=== PATIENT | female | born 1990 | race Caucasian/White ===

== ENCOUNTER → 2021-11-11 08:27 | Outpatient (BNVA) | payer OTHER, SELFPAY | PROVIDERS: PCP Family Medicine; Visit Provider Nurse Practitioner Family | DX: Z79.899 Other long term (current) drug therapy (principal) ==

== ENCOUNTER 2022-06-10 12:59 | Outpatient (REF) | payer OTHER, SELFPAY ==
--- NOTE | 2022-06-10 08:00 | EMG_ITS ---
This study was performed on 2 different machines due to technical reasons, and the data is in 2 different reports. For this oral report, both set of data were reviewed. Bilateral tibial and peroneal motor studies were performed. Bilateral superficial peroneal and sural sensory studies were performed. Medial and lateral plantar sensory studies were performed. Tibial H reflexes were obtained. A needle examination was performed. IMPRESSION: 1. 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 2. 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 MD MACEY Navarro/ADRIAN / [id number]
== END 2022-06-10 13:00 | disposition home or self-care (01) ==
LOC: HO.NEURO 12:59
PROVIDERS: PCP Internal Medicine; Visit Provider Nurse Practitioner Family
DX: M21.372 Foot drop, left foot (principal); R29.898 Other symptoms and signs involving the musculoskeletal system; M54.50 Low back pain, unspecified
CPT/HCPCS: 95886; 95913

== ENCOUNTER → 2022-10-07 14:21 | Outpatient (BNVA) | payer OTHER, SELFPAY | PROVIDERS: PCP Internal Medicine; Visit Provider Nurse Practitioner Family | DX: G57.51 Tarsal tunnel syndrome, right lower limb (principal); R26.9 Unspecified abnormalities of gait and mobility; M21.372 Foot drop, left foot ==

== ENCOUNTER → 2023-01-05 07:52 | Outpatient (BNVA) | payer OTHER, SELFPAY | PROVIDERS: PCP Internal Medicine; Visit Provider Nurse Practitioner Family | DX: G57.51 Tarsal tunnel syndrome, right lower limb (principal); R26.9 Unspecified abnormalities of gait and mobility; M21.372 Foot drop, left foot; R29.898 Other symptoms and signs involving the musculoskeletal system; R56.9 Unspecified convulsions; G62.9 Polyneuropathy, unspecified ==

== ENCOUNTER 2023-05-10 10:11 | Outpatient (AMB) | payer OTHER, SELFPAY ==
--- NOTE | 2023-05-10 10:13 | A.OFFVIS_ITS ---
Intake Intake Visit Reasons: 4M follow up gait difficulty-Confirmed Allergies topiramate [From Topamax] Allergy (Severe, Verified 01/05/23 08:04) seizure changes Medication List - Last Reconciled 05/10/23 by SLOANE Maher baclofen 10 - 20 mg (1 - 2 x 10 mg) PO BEDTIME PRN 14 days cetirizine (Zyrtec) 10 mg PO BEDTIME folic acid PO DAILY [Left AFO As directed. [facility] [address] [place] [id number] ] multivitamin 1 tab PO DAILY oxcarbazepine (Trileptal) 900 mg PO BID prednisone 60 mg (3 x 20 mg) PO DAILY 5 days trazodone 25 mg PO BEDTIME vortioxetine (Trintellix) 10 mg PO DAILY HPI HPI Comments History of Present Illness Details 33-yr-old female presents for f/u televi brittany visit via [facility] Pt denies any significant interval medical changes. Pt reports she had [facility] f/u. They advised her to do PT, which she did. Per pt, they felt that the right ankle was strong enough at this time, but if she has any further issues/injury, she will likely need surgery. She is having some pins and needles in the legs. Continues to need to wear her AFO, otherwise may trip while walking. Is considering resuming yoga. Lab work-up was essentially normal- with exception of abnormal RF, which we plan to recheck. Has not done f/u labs yet- was not sure when to do them. Last seizure was > 2 yrs ago. PFSH Medical History (Updated 05/10/23 @ 10:23 by SLOANE Maher) IIH (idiopathic intracranial hypertension) Surgical History (Updated 01/27/23 @ 13:27 by SLOANE Maher) H/O lithotripsy History of lumbar discectomy Family History (Updated 01/05/23 @ 08:08 by Leticia Snider CMA) Father Ventricular fibrillation Paternal Grandmother Squamous cell cancer of skin of nose Social History Alcohol intake: never Patient Tobacco Use Status: Never used Tobacco Review of Systems Const All systems reviewed & are unremarkable except as noted in HPI and below Physical Exam Const General: cooperative and no acute distress Orientation/consciousness: patient oriented x3 Resp Effort & Inspection: normal respiratory effort and able to speak in complete sentences Neuro General: patient oriented x3 Cognition (Neuro): normal cognition Psych Appearance: grossly normal Mental Status: mental status grossly normal Speech and movement: Normal speech and movement present Affect: normal affect Attitude: cooperative Assessment & Plan Assessment & Plan (1) Tarsal tunnel syndrome, right lower limb: Code(s): G57.51 - Tarsal tunnel syndrome, right lower limb (2) Left foot drop: Comment: s/p left L5-S1 large disc herniation in 2017. Code(s): M21.372 - Foot drop, left foot (3) Low back pain: Code(s): M54.50 - Low back pain, unspecified Plan Will recheck CHELSEA and RF- will fax labs to [facility] Continue w/ BLE AFOs. Continue PT exercises Suggested resuming Yoga, trying medium density foam rolling. ?f/u in 4months or sooner prn. Orders: Orders CHELSEA Reflex Titer and Pattern Today G62.9 - Polyneuropathy, unspecified, R76.8 - Other specified abnormal immunological findings in serum Rheumatoid Factor Today G62.9 - Polyneuropathy, unspecified, R76.8 - Other specified abnormal immunological findings in serum Telehealth Telehealth Location of provider rendering services: practice address Location of patient: address on file Patient Identification confirmed using: Name, : Yes Telehealth method: video Patient verbally consented to treatment: Yes Patient verbally consented to billing insurance company: Yes Patient informed of any privacy concerns related to visit: Yes Minutes spent on Phone/Video with Pt.: 11 Coding Level of Care Code Tele Est Pt Level 3 (29283) Diagnoses Tarsal tunnel syndrome, right lower limb G57.51 Left foot drop M21.372 Low back pain M54.50
== END 2023-05-10 12:17 | disposition home or self-care (01) ==
LOC: HO.HSMS 10:11
PROVIDERS: PCP Internal Medicine; Visit Provider Nurse Practitioner Family
DX: G57.51 Tarsal tunnel syndrome, right lower limb (principal); M21.372 Foot drop, left foot; M54.50 Low back pain, unspecified
CPT/HCPCS: 99213

== ENCOUNTER → 2023-05-10 10:11 | Outpatient (BNVA) | payer OTHER, SELFPAY | PROVIDERS: PCP Internal Medicine; Visit Provider Nurse Practitioner Family | DX: G57.51 Tarsal tunnel syndrome, right lower limb (principal); R26.9 Unspecified abnormalities of gait and mobility; M21.372 Foot drop, left foot; R29.898 Other symptoms and signs involving the musculoskeletal system; R56.9 Unspecified convulsions; G62.9 Polyneuropathy, unspecified ==

== ENCOUNTER 2023-09-14 15:12 | Outpatient (AMB) | payer OTHER, SELFPAY ==
--- NOTE | 2023-09-14 15:44 | MHC.OFFVIS ---
Intake Vital Signs 09/14/23 15:48 Height 5 ft 7 in Weight 188 lb 4 oz BMI 29.5 BP 130/80 Blood Pressure Location Lt brachial Position Sitting Pulse 90 Pulse Source Pulse Oximeter Pulse Oximetry (%) 98 Oxygen Delivery Method Room Air Intake Visit Reasons: follow up-CONF Intake Note: Patient presents for f/u Allergies topiramate [From Topamax] Allergy (Severe, Verified 09/14/23 15:46) seizure changes Medication List - Last Reconciled 09/14/23 by SLOANE Maher aspirin 162 mg PO DAILY baclofen 10 - 20 mg (1 - 2 x 10 mg) PO BEDTIME PRN 14 days cetirizine (Zyrtec) 10 mg PO BEDTIME folic acid Pt. takes 1mg x4 a day. [Left AFO As directed. [facility] [address] [place] [id number] ] multivitamin 1 tab PO DAILY oxcarbazepine (Trileptal) 900 mg PO BID prednisone 60 mg (3 x 20 mg) PO DAILY 5 days trazodone 25 mg PO BEDTIME vortioxetine (Trintellix) 10 mg PO DAILY HPI HPI Comments History of Present Illness Details 33-yr-old female presents for f/u visit. Pt reports she has had significant nausea, vomiting and weight loss with her . 06/07/23, RF- < 10 NL. She has not been using her BLE AFOs as much. Her RLE is stronger. She continues to have LLE foot drop No falls. But may catch her foot on the floor at times. No interval seizures. [facility] Medical History (Updated 05/10/23 @ 10:23 by SLOANE Maher) IIH (idiopathic intracranial hypertension) Surgical History H/O lithotripsy History of lumbar discectomy Family History Father Ventricular fibrillation Paternal Grandmother Squamous cell cancer of skin of nose Social History Alcohol intake: never Patient Tobacco Use Status: Never used Tobacco Review of Systems Const All systems reviewed & are unremarkable except as noted in HPI and below Physical Exam Vital Signs: Last Vital Signs Pulse 90 09/14/23 15:48 BP 130/80 09/14/23 15:48 Pulse Ox 98 09/14/23 15:48 Oxygen Delivery Method Room Air 09/14/23 15:48 BMI result Body Mass Index 29.5 Const General: cooperative and no acute distress Orientation/consciousness: patient oriented x3 HEENT Head: Yes normocephalic Resp Effort & Inspection: normal respiratory effort and able to speak in complete sentences Neuro Other: RLE MS 5/5 LLE hip flexor MS 5/5 Left footextensor MS 5-/5 Gait- Very mild LLE high step General: patient oriented x3 and CN's II-XI intact bilaterally Cognition (Neuro): normal cognition Deep tendon reflexes (DTR's): Right patellar reflex intensity grade: 2+ and Left patellar reflex intensity grade: 2+ Psych Appearance: grossly normal Mental Status: mental status grossly normal Speech and movement: Normal speech and movement present Affect: normal affect Attitude: cooperative Thought process: Normal thought process present Assessment & Plan Assessment & Plan (1) Tarsal tunnel syndrome, right lower limb: Code(s): G57.51 - Tarsal tunnel syndrome, right lower limb (2) Left foot drop: Comment: s/p left L5-S1 large disc herniation in 2017. Code(s): M21.372 - Foot drop, left foot (3) Gait difficulty: Code(s): R26.9 - Unspecified abnormalities of gait and mobility Plan Try to use BLE AFOs more consistently. Continue PT exercises Will recheck CHELSEA and RF after delivery. Continue on Trileptal for seizure prevntion. f/u in 4-5 months or sooner prn. Coding Level of Care Code Est Pt Level 3 (75871) Diagnoses Tarsal tunnel syndrome, right lower limb G57.51 Left foot drop M21.372 Gait difficulty R26.9
[2023-09-14 15:48] VITALS: BP 130/80; PULSE 90; O2SAT 98; BMI 29.5
== END 2023-09-14 16:00 | disposition home or self-care (01) ==
PROVIDERS: PCP Internal Medicine; Visit Provider Nurse Practitioner Family
DX: G57.51 Tarsal tunnel syndrome, right lower limb (principal); M21.372 Foot drop, left foot; R26.9 Unspecified abnormalities of gait and mobility
CPT/HCPCS: 99213

== ENCOUNTER → 2023-09-14 15:12 | Outpatient (BNVA) | payer OTHER, SELFPAY | PROVIDERS: PCP Internal Medicine; Visit Provider Nurse Practitioner Family ==

== ENCOUNTER 2024-02-08 10:49 | Outpatient (AMB) | payer OTHER, SELFPAY ==
--- NOTE | 2024-02-08 11:10 | MHC.OFFVIS ---
Vital Signs 02/08/24 11:10 Height 5 ft 7 in Intake Visit Reasons: January f/u per [facility]-conf Intake Note: Patient presents for follow up. patient has been having lower back pain impacting mobility taking tylenol with some relief. Allergies topiramate [From Topamax] Allergy (Severe, Verified 02/08/24 11:14) seizure changes Medication List - Last Reconciled 02/08/24 by SLOANE Maher aspirin 162 mg PO DAILY baclofen 10 - 20 mg (1 - 2 x 10 mg) PO BEDTIME PRN 14 days cetirizine (Zyrtec) 10 mg PO BEDTIME folic acid Pt. takes 1mg x4 a day. [Left AFO As directed. [facility] [address] [place] [id number] ] multivitamin 1 tab PO DAILY oxcarbazepine (Trileptal) 900 mg PO BID prednisone 60 mg (3 x 20 mg) PO DAILY 5 days trazodone 25 mg PO BEDTIME vortioxetine (Trintellix) 10 mg PO DAILY HPI Comments Details: 34-yr-old female presents for f/u visit. Pt is 4 weeks . Pt reports the vaginal delivery, which required Pitocin as there was ? partial placenta abruption as her amniotic fluid was bloody. Did have abdominal strain during the labor. She has stopped ASA, iron, folic acid. Walking has been ok. Some tripping- more so at the end of her . Had a fall at work- slipped on wet floor. No other falls. She has had some low back pain that made her movement a bit worse. She thinks that this might be triggered by her position while she is pumping. 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 She has not had any interval seizure. last seizure was in Mar 2021. Has f/u epilepsy clinic appt in [place] coming up. [facility] Medical History (Updated 02/08/24 @ 12:03 by SLOANE Maher) Anemia IIH (idiopathic intracranial hypertension) Surgical History H/O lithotripsy History of lumbar discectomy Family History Father Ventricular fibrillation Paternal Grandmother Squamous cell cancer of skin of nose Social History Alcohol intake: never Patient Tobacco Use Status: Never used Tobacco Physical Exam Const General: cooperative and no acute distress Orientation/consciousness: patient oriented x3 Resp Effort & Inspection: normal respiratory effort and able to speak in complete sentences Neuro Other: LLE decreased sensation- baseline BLE hip flexor and foot flexor- 5/5 Gait better today- still left leg high step. General: patient oriented x3 Cranial nerves: Yes CN's II-XII intact bilaterally Cognition (Neuro): normal cognition Psych Appearance: grossly normal Mental Status: mental status grossly normal Speech and movement: Normal speech and movement present Affect: normal affect Attitude: cooperative Assessment & Plan Assessment & Plan (1) Left foot drop: Comment: s/p left L5-S1 large disc herniation in 2017. Code(s): M21.372 - Foot drop, left foot Category: Medical (2) Rheumatoid factor positive: Code(s): R76.8 - Other specified abnormal immunological findings in serum Category: Medical (3) History of lumbar discectomy: Comment: Left L5-S1 by Dr Lemon (2017) Code(s): Z98.890 - Other specified postprocedural states Category: Surgical (4) Gait difficulty: Code(s): R26.9 - Unspecified abnormalities of gait and mobility Category: Medical (5) Seizure: Comment: both epileptic and non-epileptic. Code(s): R56.9 - Unspecified convulsions Category: Medical Plan Recheck CHELSEA, RF, Recheck CBC, CMP, and iron studies. RLE MS improved. Wear LLE AFO- as needed. Continue PT exercises Continue on Trileptal for seizure prevention. ? f/u in 4-5 months or sooner prn. Orders: Orders Complete Blood Count Auto Diff Today D64.9 - Anemia, unspecified, R76.8 - Other specified abnormal immunological findings in serum IRON PROFILE Today D64.9 - Anemia, unspecified Comprehensive Met. Panel Today D64.9 - Anemia, unspecified, R76.8 - Other specified abnormal immunological findings in serum Ferritin Today D64.9 - Anemia, unspecified Coding Level of Care Code Est Pt Level 4 (88482) Diagnoses Left foot drop M21.372 Rheumatoid factor positive R76.8 History of lumbar discectomy Z98.890 Gait difficulty R26.9 Seizure R56.9
== END 2024-02-08 12:05 | disposition home or self-care (01) ==
PROVIDERS: PCP Internal Medicine; Visit Provider Nurse Practitioner Family
DX: M21.372 Foot drop, left foot (principal); R76.8 Other specified abnormal immunological findings in serum; Z98.890 Other specified postprocedural states; R26.9 Unspecified abnormalities of gait and mobility; R56.9 Unspecified convulsions
CPT/HCPCS: 99214

== ENCOUNTER → 2024-02-08 10:49 | Outpatient (BNVA) | payer OTHER, SELFPAY | PROVIDERS: PCP Internal Medicine; Visit Provider Nurse Practitioner Family ==

== ENCOUNTER 2024-02-08 12:11 | Outpatient (REF) | payer OTHER, SELFPAY ==
[2024-02-08 18:05] LABS: MANUAL DIFF FLAG NO
[2024-02-08 18:09] LABS: Basophils Absolute Auto 0.1 X10*3/uL (0.0-0.2); Basophils Percent Auto 0.8 % (0-2); Eosinophils Absolute Auto 0.3 X10*3/uL (0.0-0.4); Eosinophils Percent Auto 3.4 % (0-4); Hematocrit 43.1 % (37.0-47.0); Hemoglobin 14.7 g/dl (12.0-16.0); Imm Gran Abs Auto 0.02 X10*3/uL (0.00-0.03); Imm Gran Pct Auto 0.3 % (0.0-0.4); Lymphocytes Absolute Auto 1.7 X10*3/uL (1.2-4.9); Lymphocytes Percent Auto 22.3 % (20-40); Mean Corpuscular HGB Conc 34.1 g/dl (31.0-35.0); Mean Corpuscular Hemoglobin 27.9 pg (27.0-33.0); Mean Corpuscular Volume 81.8 fL (80.0-98.0); Mean Platelet Volume 10.2 fL (9.4-12.3); Monocytes Absolute Auto 0.5 X10*3/uL (0.1-1.2); Neutrophils Absolute Auto 5.1 x10*3/uL (2.0-8.3); Neutrophils Percent Auto 66.2 % (45-73); Platelet Count 253 X10*3/uL (160-400); Red Blood Count 5.27 X10*6/uL (4.20-5.50); Red Cell Distribution Width 13.6 % (11.0-16.0); White Blood Count 7.7 X10*3/uL (4.8-10.8)
[2024-02-08 18:25] LABS: Rheumatoid Factor < 13.0 IU/mL (<15.0)
[2024-02-08 18:47] LABS: Alanine Aminotransferase 30 U/L (0-31); Albumin Level 4.3 g/dL (3.5-5.0); Alkaline Phosphatase 139 U/L (39-117); Anion Gap 13 (12-20); Aspartate Amino Transferase 27 U/L (5-31); Bilirubin Total 0.2 mg/dL (0.0-1.0); Blood Urea Nitrogen 17 mg/dL (9-16); Calcium 9.3 mg/dL (8.4-10.2); Carbon Dioxide 21 mmol/L (22-29); Chloride 109 mmol/L (96-108); Estimated Glomerular Filt Rate > 60; Glucose Random 77 mg/dL (60-115); Iron 119 mcg/dL (30-160); Percent Iron Saturation 36 % (15-50); Potassium 4.4 mmol/L (3.3-5.1); Sodium 139 mmol/L (135-145); Total Iron Binding Capacity 328 mcg/dL (228-428); Total Protein 8.1 g/dL (6.5-8.0); Unsaturated Iron Binding 209 ug/dL
[2024-02-08 18:56] LABS: Ferritin 76 ng/mL (10-122)
[2024-02-17 12:28] LABS: Anti Nuclear Antibody Pattern Nuclear, Speckled; Anti Nuclear Antibody Screen POSITIVE (NEGATIVE)
== END 2024-02-08 12:12 | disposition home or self-care (01) ==
LOC: HO.HKASLDS 12:11
PROVIDERS: Visit Provider Nurse Practitioner Family
DX: R76.8 Other specified abnormal immunological findings in serum (principal); D64.9 Anemia, unspecified; G62.9 Polyneuropathy, unspecified
CPT/HCPCS: 36415; 80053; 82728; 83540; 85025; 86038; 86039; 86431

== ENCOUNTER 2024-07-17 15:20 | Outpatient (AMB) | payer OTHER, SELFPAY ==
--- NOTE | 2024-07-17 15:21 | A.OFFVIS_ITS ---
Vital Signs 07/17/24 15:22 Height 5 ft 7 in Weight 222 lb 14.197 oz BMI 34.9 BP 106/76 Blood Pressure Location Rt brachial Position Sitting Pulse 82 Pulse Source Pulse Oximeter Intake Visit Reasons: +CHELSEA/CM Intake Note: Patient present today for +CHELSEA/CM office visit. A And P Mechanic Required: No Accompanied by: Self / Same As Patient Allergies topiramate [From Topamax] Allergy (Severe, Verified 07/17/24 15:26) seizure changes Medication List - Last Reconciled 07/17/24 by Puja Zapata MD baclofen 10 - 20 mg (1 - 2 x 10 mg) PO BEDTIME PRN 14 days cetirizine (Zyrtec) 10 mg PO BEDTIME [Left AFO As directed. [facility] [address] [place] [id number] ] multivitamin 1 tab PO DAILY oxcarbazepine (Trileptal) 900 mg PO BID trazodone 25 mg PO BEDTIME vortioxetine (Trintellix) 10 mg PO DAILY HPI Comments Details: Patient is a 34-year-old female with seizure disorder (with epileptic and non epileptic seizures) follows up at [facility] epilepsy [facility], hx of ICH currently being managed by checking eye pressures with ophthal presents for eval of positive CHELSEA. Her history starts back in 2015 when the Neurologist noted she developed a left foot drop and left lower extremity weakness. She was found to have a left L5-S1 large disc herniation which was surgically repaired in 2016. Unfortunately in the left lower extremity weakness persisted and EMG in 2017 revealed a left L4- S1 denervated muscle consistent with mild chronic left L4-L5 radiculopathy. In 2020, she had an uncomplicated vaginal delivery with epidural and immediately after she noted that her right lower extremity was ?? for 12 hours. She noticed that she was tripping over her right foot and having numbness and tingling from the knees to the toes. Was evaluated for MS with Brain and whole spine MRI with contrast, no evidence of MS Denies rashes, photosensitivity, alopecia, oral/nasal ulcers (does report canker sores ), sicca symptoms, lymphadenopathy, chest pain/shortness of breath, history of pericarditis or pleuritis, foamy urine, lower extremity edema, muscle weakness, Raynaud's Also denies history of CVA, psychosis, history of kidney problems, history of cytopenias, history of VTE including PE or DVTs Joint pain - hands (1st CMC joint, MCPs, PIPs) - pain is worse in the evening - Notes stiffness in the AM 30-60mins but no swelling - knees - pain all day - going up stairs hurts more than going down - ankles - thinks it may be because of the foot drop OB History: +1 (1 ) No history of pre eclampsia partial abruption with second delivery No known autoimmune family history PFSH Medical History (Updated 05/07/24 @ 13:38 by SLOANE Maher) Anemia IIH (idiopathic intracranial hypertension) Surgical History H/O lithotripsy History of lumbar discectomy Family History Father Ventricular fibrillation Paternal Grandmother Squamous cell cancer of skin of nose Social History Alcohol intake: never Patient Tobacco Use Status: Never used Tobacco Review of Systems Const Details: Review of Systems Constitutional: Denies fever, chills, weight loss ENT: Denies vision changes, eye pain or eye redness, dental caries, dry mouth GI: Denies nausea, vomiting, diarrhea, abdominal pain, change in BM Pulm: Denies SOB, MCNULTY, hemoptysis, wheezing Cards: Denies chest pain, palpitations Skin: Denies Raynaud's, rash, nail changes, photosensitivity, QUALITY REVIEWER: see HPI MSK: as per HPI All other systems reviewed and are unremarkable except noted above Physical Exam Physical Examination CONSTITUITIONAL Patient alert and cooperative. Well appearing and in no apparent painful distress HEENT Conjunctiva and sclera clear. ?Pupils equal round and reactive to light. ?No lymphadenopathy. ? CHEST/RESPIRATORY SYSTEM Normal respiratory effort and able to speak in complete sentences. ?Clear to aus cultation bilaterally. ?No crackles, rales, rhonchi, wheezes heard. CARDIAC SYSTEM Regular rate and rhythm. ?S1 and S2 heard no murmurs. ?Radial pulses intact bilaterally MSK Hands: ?Good choir accompanist strength bilaterally. No deformities noted. ?No synovitis noted to the MCPs, PIPs or DIPs. ?No tenderness to palpation of these joints. Wrists: ?Full range of motion at the wrists without pain. ?No tenderness to palpation or synovitis noted to the wrists. Elbows: Full range of motion without pain. No tenderness, weakness, swelling, increased warmth or erythema. Shoulders: Full range of motion without pain. No tenderness, weakness, swelling, increased warmth or erythema. Knees: ?Full range of motion. ?No tenderness, swelling, increased warmth or erythema.?No effusion or crepitations Ankles: Full range of motion. ?No tenderness, swelling, increased warmth or erythema.? Feet: ?Negative squeeze test. ?No tenderness to palpation or swelling of the MTPs. SKIN Skin intact without rashes. Results Reviewed Results Reviewed: Laboratory Tests 02/08/24 12:15 WBC 7.7 RBC 5.27 Hgb 14.7 Hct 43.1 Plt Count 253 Sodium 139 Potassium 4.4 Chloride 109 H Carbon Dioxide 21 L BUN 17 H Creatinine 0.81 Rheumatoid Factor < 13.0 CHELSEA Screen POSITIVE A CHELSEA Titer 1:80 H CHLESEA Pattern Nuclear, Speckled A Assessment & Plan Assessment & Plan (1) CHELSEA positive: Code(s): R76.8 - Other specified abnormal immunological findings in serum Category: Medical Plan: #Positive CHELSEA The presence of antinuclear antibodies (CHELSEA) is mainly associated with connective tissue diseases (CTD). ?However, their presence is found in healthy people especially in women and patients >65. ?In healthy individuals, the frequency of CHELSEA has been shown to be 31.7% of individuals at 1:40 serum dilution, 13.3% at 1:80, 5.0% at 1:160, and 3.3% at 1:320 (2). Some drugs and xenobiotics are also important for the development of CHELSEA (hydralazine, hydrochlorothiazide, minocycline, terbinafine, ciprofloxacin, furosemide, omeprazole). Moreover, the deficiency of vitamin D in the body of patients correlates with occurrence of these antibodies (1). This patient's neurological symptoms are unlikely to be related to her CHELSEA. CHELSEA can be related to Sjogren's, lupus, scleroderma, myositis, mixed connective tissue disease. In this case where there are neurological symptoms involve a positive CHELSEA could be related to Sjogren's or lupus. Patient does not have any other clinical symptoms concerning for lupus and it is very unlikely that she would have lupus manifesting in the central nervous system without any other manifestations affecting any other organs. Sjogren's could be a possibility especially in this young woman but she does not have any dry eyes or dry mouth. We will send blood work including Sjogren's antibodies, antiphospholipid antibodies, and lupus blood work. 1. Arnold Carlton, Milvia Damon, Wayne Damon. Antinuclear antibodies in healthy people and non-rheumatic diseases - diagnostic and clinical implications. Reumatologia. 2018;56(4):243-248. doi: 10.5114/reum.2018.09816. Epub 2017Apr 14. PMID: [id number]; PMCID: [id number]. 2. Tom EM, Sanjuanita TE, Emilie JS, Melba B, Coleen R, George MJ, Vishnu T, Carlos JA, Cat JR, Paris RG, Pepito RN, Phoenix JS, Jose NF, Eloisa RJ, Taklarissa Y, Hawk A, Anival MR, Rubio JA. Range of antinuclear antibodies in healthy individuals. Arthritis Rheum. 1996;40(9):1601-11. doi: 10.1002/art.1253037743. PMID: 1176490. Plan I spent 60 minutes reviewing the record and labs, seeing the patient, discussing the treatment plan and documenting in the medical record Orders: Orders Sjogren's Antibodies Today G62.9 - Polyneuropathy, unspecified, R56.9 - Unspecified convulsions, R76.8 - Other specified abnormal immunological findings in serum Anti Extractable Nuclear Ag Today G62.9 - Polyneuropathy, unspecified, R56.9 - Unspecified convulsions, R76.8 - Other specified abnormal immunological findings in serum Complement C3 Today G62.9 - Polyneuropathy, unspecified, R56.9 - Unspecified convulsions, R76.8 - Other specified abnormal immunological findings in serum Beta-2 Glycoprotein Antibody Today G62.9 - Polyneuropathy, unspecified, R56.9 - Unspecified convulsions, R76.8 - Other specified abnormal immunological findings in serum Scleroderma 12 Panel Today G62.9 - Polyneuropathy, unspecified, R56.9 - Unspecified convulsions, R76.8 - Other specified abnormal immunological findings in serum Anti DNA DS Antibody Today G62.9 - Polyneuropathy, unspecified, R56.9 - Unspecified convulsions, R76.8 - Other specified abnormal immunological findings in serum Complement C4 Today G62.9 - Polyneuropathy, unspecified, R56.9 - Unspecified convulsions, R76.8 - Other specified abnormal immunological findings in serum C Reactive Protein Today G62.9 - Polyneuropathy, unspecified, R56.9 - Unspecified convulsions, R76.8 - Other specified abnormal immunological findings in serum DNA Double Stranded-Crithidia Today G62.9 - Polyneuropathy, unspecified, R56.9 - Unspecified convulsions, R76.8 - Other specified abnormal immunological findings in serum Erythrocyte Sedimentation Rate Today G62.9 - Polyneuropathy, unspecified, R56.9 - Unspecified convulsions, R76.8 - Other specified abnormal immunological findings in serum Lupus Anticoagulant Panel Today G62.9 - Polyneuropathy, unspecified, R56.9 - Unspecified convulsions, R76.8 - Other specified abnormal immunological findings in serum Protein Creatinine Ratio, Ur Today G62.9 - Polyneuropathy, unspecified, R56.9 - Unspecified convulsions, R76.8 - Other specified abnormal immunological findings in serum UA w Microscopic Today G62.9 - Polyneuropathy, unspecified, R56.9 - Unspecified convulsions, R76.8 - Other specified abnormal immunological findings in serum Cardiolipin Antibodies Today G62.9 - Polyneuropathy, unspecified, R56.9 - Unspecified convulsions, R76.8 - Other specified abnormal immunological findings in serum Medications: Discontinued prednisone Discontinued Reason: Patient Completed Course 60 mg (3 x 20 mg) PO DAILY 5 days 15 tabs 0RF Coding Level of Care Code New Pt Level 5 (25721) Diagnoses CHELSEA positive R76.8
[2024-07-17 15:22] VITALS: BP 106/76; PULSE 82; BMI 34.9
--- OUTSIDE RECORDS SUMMARY | 2024-07-24 15:11 | XMS_ITS ---
Author Name [facility] Organization Unknown History of Medication Use Medication Directions Dispensed Refills Start Date End Date Stat acetaZOLAMIDE (DIAMOX) 250 MG tablet Take 1 tablet (250 mg total) by mouth 2 (two) times a day. 07/18/2022 aborted cetirizine (ZyrTEC) 10 MG tablet Take 1 tablet (10 mg total) by mouth daily. QHS 07/18/2022 active FOLIC ACID PO Take 1,600 mcg by mouth daily. 07/18/2022 active OXcarbazepine (TRILEPTAL) 300 MG tablet Take 3 tablets (900 mg total) by mouth 2 (two) times a day. 07/18/2022 active docusate sodium (COLACE) 10 mg/mL liquid Take 10 mL (100 mg total) by mouth 2 (two) times a day. 07/18/2022 active ibuprofen (MOTRIN) 800 mg tablet Take 1 tablet (800 mg total) by mouth. 07/18/2022 active clonazePAM (KlonoPIN) 0.5 MG tablet Take 1 tablet (0.5 mg total) by mouth 2 times daily (every 12 hours) as needed. PRN FOR MORE THAN 2 SEIZURES IN 24 HOURS 07/18/2022 active MV-Min-Fe Fum-FA-DHA ( MULTIVITAMIN + DHA PO) Take by mouth. 07/18/2022 active multivitamin Tab tablet Take 1 tablet by mouth daily. 07/18/2022 aborted diazepam (VALIUM) 5 MG tablet diazepam 5 mg tablet 07/18/2022 aborted traZODone (DESYREL) 50 MG tablet Take 0.5 tablets (25 mg total) by mouth nightly as needed for insomnia. QHS 07/18/2022 active acetaminophen (TYLENOL) 325 MG tablet Take 2 tablets (650 mg total) by mouth. 03/12/2023 active albuterol (PROVENTIL HFA; VENTOLIN HFA) 108 (90 Base) MCG/ACT inhaler Inhale 2 puffs 4 times daily (every 6 hours) as needed for wheezing. 110MCG Q4H PRN 07/18/2022 aborted vortioxetine (TRINTELLIX) 10 MG tablet Take by mouth daily. 07/18/2022 active prazosin (MINIPRESS) 2 MG capsule TAKE 1 CAPSULE BY MOUTH EVERY DAY AT BEDTIME NEEDED 03/12/2023 active Problems Problem Status Onset Date Problem Type Date of Resoluti on Source Suicide ideation active 2023-03-10 ProblemAct [facility] Migraine active 2023-03-10 ProblemAct [facility] Moderate persistent asthma without complication active 2018-04-24 ProblemAct [facility] Pleocytosis of cerebrospinal fluid active 2023-03-10 ProblemAct [facility] Anxiety active 2023-03-10 ProblemAct [facility] 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 ProblemAct [facility] [place] Pseudotumor cerebri active 2023-03-10 ProblemAct [facility] Left foot drop active 2019-04-30 ProblemAct [facility] [place] Dissociative convulsions active 2023-03-10 ProblemAct [facility] Major depressive disorder with single episode, in full remission active 2023-03-10 ProblemAct [facility] Lumbar disc herniation active 2018-04-24 ProblemAct [facility] Allergic rhinitis active 2018-05-10 ProblemAct [facility] Depression active 2018-04-24 ProblemAct [facility] TMJ syndrome active 2018-05-10 ProblemAct [facility] Weakness of left upper extremity active 2018-07-24 ProblemAct [facility] Blood type, Rh negative active 2023-03-10 ProblemAct [facility] CTS (carpal tunnel syndrome) active 2018-05-10 ProblemAct [facility]
--- OUTSIDE RECORDS SUMMARY | 2024-07-24 15:11 | XMS_ITS | Patient Health Record ---
Author Organization [employer] Address [address] [facility] [address] [place] [address] Care Team Providers Care Reliability Technologist Name Role Phone JOSEFA LEE Primary Care Provider MICKI Tamayo Unavailable [phone] Allergies Allergen (clinical drug ingredient) Drug/Non Drug Allergy documented on EMR Reaction Allergy Type Onset Date Status topiramate Topamax Unknown Drug Allergy Active Reason For Referral No Information Medications Medication SIG (Take, Route, Frequency, Duration) Notes Start Date End Date Status acetaZOLAMIDE 125 MG TAKE 1 TABLET BY MO UTH 3 TIMES A DAY FOR 1 WEEK, THEN 2 TABS 3 TIMES A DAY Oral for 90 Not-Taking Prazosin HCl 2 MG TAKE 1 CAPSULE BY MOUTH EVERY DAY AT BEDTIME NEEDED Oral for 90 Not-Taking Folic Acid 800 MCG 1 tablet Orally Once a day for 30 day(s) 12/12/2020 Active Sjadamuaty-FTTH-Urdxrvnm 50-325-40 MG TAKE 1 2 TABS AT ONSET OF HEADACHE, MAY REPEAT IN 4 HOURS (MAX 4 TABS PER DAY, 8 PER WEEK) Oral for 30 Active clonazePAM 0.5 MG (Schedule IV Drug) TAKE 1/2 TABLET BY MOUTH 2 TIMES A DAY MAY TAKE 2 TABLETS FOR MORE THEN 2 SEIZURES IN 24HRS Oral for 30 Active 28-0.8 MG 1 tablet Orally Once a day for 30 day(s) 12/12/2020 Active traZODone HCl 50 MG TAKE 1/2 1 TABLET BY MOUTH EVERY DAY AT BEDTIME NEEDED Oral for 90 Active OXcarbazepine 150 MG TAKE 1 TABLET BY MO UTH TWICE A DAY Oral for 90 Active Social History Tobacco Use: Social History Observation Description Date Details (start date - stop date) Never Smoker NA - NA Tobacco Use/Smoking Question Answer Notes Are you a nonsmoker Section Notes: 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 lives at home wtih who is an RN. close to her family, mother is also an RN. No substance hx, not a smoker. Currently 18 weeks (12/08/2020) with her first child. Problems Problem Type SNOMED Code ICD Code Onset Dates Problem Status W/U Status Risk Notes Problem Anxiety (35487947) Anxiety (F41.9) Active confirmed Problem Migraine (22147016) Migraine (G43.909) Active confirmed Problem Depression (774067884) Depression (F32.9) Active confirmed Problem [id number] Migraine without aura and without status migrainosus, not intractable (G43.009) Active confirmed Problem 47840988 Major depressive disorder with single episode, in full remission (F32.5) Active confirmed Plan Of Treatment No Information Insurance Providers Payer Name Payer Address Payer Phone Subscriber Number Group Number Insured Name Patient Relationship to Insured Coverage Start Date Coverage End Date [facility] [address] [place] [address] [id number] Kwame Pinto Self - patient is the insured Medical (General) History Medical History History ICD Code Migraine G43.909 Anxiety F41.9 Depression F32.9 Seizure R56.9 lumbar radiculopathy Surgical History Surgery Date(Month/Year) lamenectomy L5-S1 11/2016 Hospitalization History Reason Date(Month/Year) surgery related seizures
== END 2024-07-17 16:24 | disposition home or self-care (01) ==
PROVIDERS: PCP Internal Medicine; Visit Provider Student in an Organized Health Care Education/Training Program
DX: R76.8 Other specified abnormal immunological findings in serum (principal)
CPT/HCPCS: 99205

== ENCOUNTER → 2024-07-17 15:20 | Outpatient (BNVA) | payer OTHER, SELFPAY | PROVIDERS: PCP Internal Medicine; Visit Provider Student in an Organized Health Care Education/Training Program ==

== ENCOUNTER 2024-07-23 16:36 | Outpatient (REF) | payer OTHER, SELFPAY ==
[2024-07-23 18:16] LABS: Appearance Urine Cloudy; Color Urine Yellow; Glucose Urine UA Negative (Negative); Leukocyte Esterase Urine Small (1+) (Negative); Nitrite Urine Negative (Negative); Specific Gravity - Urine >= 1.030 (1.005-1.025); UMIC TRIGGER UA YES; Urine Blood Large (3+) (Negative); Urine Ketones Negative (Negative); Urine Protein Trace mg/dL (Neg-Trace)
[2024-07-23 18:23] LABS: Bacteria Urine 2+ (None Seen); Hyaline Casts Urine 0-2 /LPF (0-2)
[2024-07-23 18:32] LABS: Erythrocyte Sedimentation Rate 7 MM/HR (0-20)
[2024-07-23 18:42] LABS: Creatinine Urine 224.92 mg/dL; Protein/Creatinine Ratio, Ur 0.08 (<0.2); Total Protein Urine Random 18 mg/dL (<12)
[2024-07-24 08:33] LABS: Complement C3 158 mg/dL (83-193)
[2024-07-24 20:24] LABS: Anti DNA DS Antibody 10 IU/mL; Antibody to SS-A Antigen <1.0 NEG AI (<1.0 NEG); Antibody to SS-B Antigen <1.0 NEG AI (<1.0 NEG); Cardiolipin IgG Ab <2.0 GPL-U/mL; Cardiolipin IgM Ab <2.0 MPL-U/mL; SM/Ribonucleoprotein Ab <1.0 NEG AI (<1.0 NEG); Smith Protein <1.0 NEG AI (<1.0 NEG)
--- OUTSIDE RECORDS SUMMARY | 2024-07-25 18:06 | XMS_ITS | Patient Health Record ---
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 lives at home wtih who is an RN. close to her family, mother is also an RN. No substance hx, not a smoker. Currently 18 weeks (12/08/2020) with her first child. Problems Problem Type SNOMED Code ICD Code Onset Dates Problem Status W/U Status Risk Notes Problem Anxiety (88039914) Anxiety (F41.9) Active confirmed Problem Migraine (97634034) Migraine (G43.909) Active confirmed Problem Depression (594839234) Depression (F32.9) Active confirmed Problem 357700276 Migraine without aura and without status migrainosus, not intractable (G43.009) Active confirmed Problem 24744072 Major depressive disorder with single episode, in full remission (F32.5) Active confirmed Plan Of Treatment No Information Insurance Providers Payer Name Payer Address Payer Phone Subscriber Number Group Number Insured Name Patient Relationship to Insured Coverage Start Date Coverage End Date [facility] [address] [place] [address] [id number] Kwame Pinto Self - patient is the insured Medical (General) History Medical History History ICD Code Migraine G43.909 Anxiety F41.9 Depression F32.9 Seizure R56.9 lumbar radiculopathy Surgical History Surgery Date(Month/Year) lamenectomy L5-S1 11/2016 Hospitalization History Reason Date(Month/Year) surgery related seizures
[2024-07-25 23:17] LABS: DRVVT Confirmation Negative (Negative); Hexagonal Phase Neutralization Negative (Negative); PTT (LAC) Screen 44 sec (<=40)
[2024-07-27 15:13] LABS: DNAds, Crithidia Antibody Positive (Negative)
[2024-07-27 17:53] LABS: DNAds, Crithidia Antibody 1:10 titer (<1:10)
[2024-07-27 22:12] LABS: Beta-2 Glycoprotein IgA <2.0 U/mL (<20.0); Beta-2 Glycoprotein IgG <2.0 U/mL (<20.0); Beta-2 Glycoprotein IgM <2.0 U/mL (<20.0)
[2024-07-30 15:23] LABS: Centromere Protein A Ab <11 SI (<11); Centromere Protein B Ab <11 SI (<11); Fibrillarin Ab <11 SI (<11); PM SCL 100 Ab <11 SI (<11); PM SCL 75 Ab <11 SI (<11); RNA Polymerase III RP11 Ab <11 SI (<11); RNA Polymerase III RP155 Ab <11 SI (<11); SCL-70 Extractable Nuclear Ab <11 SI (<11); Th-To Ab <11 SI (<11); U1 SNRNP RNP 70KD <11 SI (<11); U1 SNRNP RNP A <11 SI (<11); U1 SNRNP RNP C <11 SI (<11)
== END 2024-07-23 16:37 | disposition home or self-care (01) ==
LOC: HO.LAB 16:36
PROVIDERS: PCP Internal Medicine; Visit Provider Student in an Organized Health Care Education/Training Program
DX: R76.8 Other specified abnormal immunological findings in serum (principal); G62.9 Polyneuropathy, unspecified; R56.9 Unspecified convulsions
CPT/HCPCS: 36415; 81001; 82570; 84156; 84182; 85597; 85598; 85613; 85652; 85730; 86140; 86146; 86147; 86160; 86225; 86235; 86255

== ENCOUNTER 2024-08-24 15:32 | Outpatient (AMB) | payer OTHER, SELFPAY ==
[2024-08-24 15:35] VITALS: BP 138/80; PULSE 98; O2SAT 98; BMI 35.4
--- NOTE | 2024-08-24 15:35 | A.OFFVIS_ITS ---
Vital Signs 08/24/24 15:35 Height 5 ft 7 in Weight 225 lb 12.054 oz BMI 35.4 BP 138/80 Blood Pressure Location Lt brachial Position Sitting Pulse 98 Pulse Source Pulse Oximeter Pulse Oximetry (%) 98 Oxygen Delivery Method Room Air Intake Visit Reasons: CHELSEA +, discuss labs Intake Note: Patient last seen by Doctor Puja Zapata on 07/17/24. Presents today for CHELSEA+ follow up and test results. Allergies topiramate [From Topamax] Allergy (Severe, Verified 08/24/24 15:38) seizure changes Medication List - Last Reconciled 08/24/24 by Puja Zapata MD baclofen 10 - 20 mg (1 - 2 x 10 mg) PO BEDTIME PRN 14 days cetirizine (Zyrtec) 10 mg PO BEDTIME [Left AFO As directed. [facility] [address] [place] [address] ] multivitamin 1 tab PO DAILY oxcarbazepine (Trileptal) 900 mg PO BID trazodone 25 mg PO BEDTIME vortioxetine (Trintellix) 10 mg PO DAILY HPI Comments Details: Patient is a 34-year-old female with seizure disorder (with epileptic and non epileptic seizures) follows up at [facility], hx of ICH currently being managed by checking eye pressures with ophthal presents for f ollow up of positive CHELSEA Interval History: Last seen 07/17/24 with me. At that time she was establishing care for the evaluation of a positive CHELSEA Lab work revealed weakly positive CHELSEA and weakly positive dsDNA. All other lupus labs unremarkable Today, No new issues since last visit Rheumatologic History: Initial History: 2015 when the Neurologist noted she developed a left foot drop and left lower extremity weakness. She was found to have a left L5-S1 large disc herniation which was surgically repaired in 2016. Unfortunately in the left lower extremity weakness persisted and EMG in 2017 revealed a left L4-S1 denervated muscle consistent with mild chronic left L4-L5 radiculopathy. In 2020, she had an uncomplicated vaginal delivery with epidural and immediately after she noted that her right lower extremity was ?? for 12 hours. She noticed that she was tripping over her right foot and having numbness and tingling from the knees to the toes. Was evaluated for MS with Brain and whole spine MRI with contrast, no evidence of MS Denies rashes, photosensitivity, alopecia, oral/nasal ulcers (does report canker sores ), sicca symptoms, lymphadenopathy, chest pain/shortness of breath, history of pericarditis or pleuritis, foamy urine, lower extremity edema, muscle weakness, Raynaud's Also denies history of CVA, psychosis, history of kidney problems, history of cytopenias, history of VTE including PE or DVTs Joint pain - hands (1st CMC joint, MCPs, PIPs) - pain is worse in the evening - Notes stiffness in the AM 30-60mins but no swelling - knees - pain all day - going up stairs hurts more than going down - ankles - thinks it may be because of the foot drop OB History: +1 (1 ) No history of pre eclampsia partial abruption with second delivery No known autoimmune family history Current Rheumatology Medication(s): [facility] Medical History (Updated 08/28/24 @ 14:00 by Puja Zapata MD) Long-term use of Plaquenil Undifferentiated connective tissue disease Anemia IIH (idiopathic intracranial hypertension) Surgical History H/O lithotripsy History of lumbar discectomy Family History Father Ventricular fibrillation Paternal Grandmother Squamous cell cancer of skin of nose Social History Alcohol intake: never Patient Tobacco Use Status: Never used Tobacco Review of Systems Const Details: Review of Systems Constitutional: Denies fever, chills, weight loss ENT: Denies vision changes, eye pain or eye redness, dental caries, dry mouth GI: Denies nausea, vomiting, diarrhea, abdominal pain, change in BM Pulm: Denies SOB, MCNULTY, hemoptysis, wheezing Cards: Denies chest pain, palpitations Skin: Denies Raynaud's, rash, nail changes, photosensitivity, DOUBLE SURFACE OPERATOR: see HPI MSK: as per HPI All other systems reviewed and are unremarkable except noted above Physical Exam Vital Signs: Last Vital Signs Pulse 98 08/24/24 15:35 BP 138/80 08/24/24 15:35 Pulse Ox 98 08/24/24 15:35 Oxygen Delivery Method Room Air 08/24/24 15:35 BMI result Body Mass Index 35.4 Physical Examination CONSTITUITIONAL Patient alert and cooperative. Well appearing and in no apparent painful distress HEENT Conjunctiva and sclera clear. ?Pupils equal round and reactive to light. ?No lymphadenopathy. ? CHEST/RESPIRATORY SYSTEM Normal respiratory effort and able to speak in complete sentences. ?Clear to auscultation bilaterally. ?No crackles, rales, rhonchi, wheezes heard. CARDIAC SYSTEM Regular rate and rhythm. ?S1 and S2 heard no murmurs. ?Radial pulses intact bilaterally MSK Hands: ?Good telephonic case manager strength bilaterally. No deformities noted. ?No synovitis noted to the MCPs, PIPs or DIPs. ?No tenderness to palpation of these joints. Wrists: ?Full range of motion at the wrists without pain. ?No tenderness to palpation or synovitis noted to the wrists. Elbows: Full range of motion without pain. No tenderness, weakness, swelling, increased warmth or erythema. Shoulders: Full range of motion without pain. No tenderness, weakness, swelling, increased warmth or erythema. Knees: ?Full range of motion. ?No tenderness, swelling, increased warmth or erythema.?No effusion or crepitations Ankles: Full range of motion. ?No tenderness, swelling, increased warmth or erythema.? Feet: ?Negative squeeze test. ?No tenderness to palpation or swelling of the MTPs. SKIN Skin intact without rashes. Results Reviewed Results Reviewed: Laboratory Tests 02/08/24 07/23/24 12:15 16:54 ESR 7 Sodium 139 Potassium 4.4 Chloride 109 H Carbon Dioxide 21 L Anion Gap 13 BUN 17 H Creatinine 0.81 AST 27 ALT 30 Alkaline Phosphatase 139 H C-Reactive Protein 0.90 H Total Protein 8.1 H CHELSEA Screen POSITIVE A CHELSEA Titer 1:80 H SS-A/Ro Antibody <1.0 NEG SS-B/La Antibody <1.0 NEG Sm ([place]) Antibody <1.0 NEG U1 snRNA A Antibody <11 U1 snRNA C Antibody <11 U1 snRNA 70kD Antibody <11 SM/VP ORGANIZATIONAL DEVELOPMENT IgG Antibody <1.0 NEG Scl-70 Scleroderma Ab <11 A-PM Scleroderma 75 Ab <11 A-PM Scleroderma 100 Ab <11 Double Strand DNA Ab 10 H Anti-ds DNA Titer ([place]) 1:10 H Th/To VP ORGANIZATIONAL DEVELOPMENT Ab <11 U3-VP ORGANIZATIONAL DEVELOPMENT (Fibrillarin) Ab <11 RNA Polymerase III RP11 Ab <11 RNA Polymerase III RP155 Ab <11 Centromere B Antibody <11 Centromere Protein A Ab <11 Beta-2-GPI IgG Ab <2.0 Beta-2-GPI IgA Ab <2.0 Beta-2-GPI IgM Ab <2.0 Anti-Cardiolipin IgG Ab <2.0 Anti-Cardiolipin IgM Ab <2.0 Complement C3 158 Complement C4 30 Assessment & Plan Assessment & Plan (1) Undifferentiated connective tissue disease: Code(s): M35.9 - Systemic involvement of connective tissue, unspecified Category: Medical Plan: #Undifferentiated connective tissue disease Patient is a 34-year-old female with several neurologic issues comes in with a low positive CHELSEA 1:80 and a low positive dsDNA 10. She does not have any extra nuclear antigens that are positive. Had a long discussion with patient and who came to visit with her At this time there is not sufficient evidence to diagnose her with lupus. Also even though the dsDNA is weakly positive, it is unlikely that her neurological symptoms would be related to lupus without any OSMIN Abs. With that being said she does have some things that are concerning for an underlying connective tissue disease such as Raynaud's, joint pain that gets better with movement, low positive CHELSEA and low positive dsDNA. Based on this I will label her as undifferentiated connective tissue disease. Whether her neurological symptoms are related to this is unclear. I think she warrants a repeat lumbar puncture to evaluate cells as well as to look for antibodies. I will need to reach out to her neurologist to discuss this. Discussed my thoughts and findings with the patient and her and they are in agreement with the plan Plan - Check anti ribosomal P, anti histone - Contact neurologist to discuss LP with CSF analysis - Start plaquenil 200mg twice a day - RTC 3 months (2) Long-term use of Plaquenil: Code(s): Z79.899 - Other longitudinal float operator (current) drug therapy Category: Medical Plan: #Long-term Use of Hydroxychloroquine Discussed with patient the risks and benefits of hydroxychloroquine in managing the rheumatic condition Benefits include: - Reduced pain, reduce mortality, maintenance of remission and reduction of flares Risks include: - GI upset, skin hyperpigmentation, retinal toxicity (especially after more than 5 years of use), myopathy Advised yearly ophthalmology visits Plan I spent 45 minutes reviewing the record and labs, taking a history, examining the patient, discussing the treatment plan, reviewing literature, and documenting in the medical record Orders: Orders Other Ref Test - [facility] [place] 08/24/24 M35.9 - Systemic involvement of connective tissue, unspecified, R76.8 - Other specified abnormal immunological findings in serum Other Ref Test - [facility] [place] 08/25/24 M35.9 - Systemic involvement of connective tissue, unspecified, R76.8 - Other specified abnormal immunological findings in serum Histone Antibody 08/24/24 M35.9 - Systemic involvement of connective tissue, unspecified, R76.8 - Other specified abnormal immunological findings in serum Medications: New hydroxychloroquine (Plaquenil) 200 mg PO BID 90 days 180 tabs 1RF M35.9 - Systemic involvement of connective tissue, unspecified, R76.8 - Other specified abnormal immunological findings in serum Coding Level of Care Code Est Pt Level 5 (66674) Complex EM visit Add On G2211 Diagnoses Undifferentiated connective tissue disease M35.9 Long-term use of Plaquenil Z79.899
== END 2024-08-24 16:14 | disposition home or self-care (01) ==
PROVIDERS: PCP Internal Medicine; Visit Provider Student in an Organized Health Care Education/Training Program
DX: M35.89 Other specified systemic involvement of connective tissue (principal); Z79.899 Other long term (current) drug therapy
CPT/HCPCS: 99215

== ENCOUNTER 2024-09-05 12:28 | Outpatient (AMB) | payer OTHER, SELFPAY ==
[2024-09-05 13:02] VITALS: BP 120/78; PULSE 82; O2SAT 98; BMI 35.9
--- NOTE | 2024-09-05 13:02 | MHC.OFFVIS ---
Vital Signs 09/05/24 13:02 Height 5 ft 7 in Weight 229 lb 6 oz BMI 35.9 BP 120/78 Blood Pressure Location Lt brachial Position Sitting Pulse 82 Pulse Source Pulse Oximeter Pulse Oximetry (%) 98 Oxygen Delivery Method Room Air Intake Visit Reasons: 6 mon follow up Intake Note: next steps with Rheum Allergies topiramate [From Topamax] Allergy (Severe, Verified 09/05/24 13:07) seizure changes Medication List - Last Reconciled 09/05/24 by SLOANE Maher baclofen 10 - 20 mg (1 - 2 x 10 mg) PO BEDTIME PRN 14 days cetirizine (Zyrtec) 10 mg PO BEDTIME hydroxychloroquine (Plaquenil) 200 mg PO BID 90 days [Left AFO As directed. [facility] [address] [place] [address] ] melatonin 10 mg PO BEDTIME PRN multivitamin 1 tab PO DAILY oxcarbazepine (Trileptal) 900 mg PO BID trazodone 25 mg PO BEDTIME vortioxetine (Trintellix) 10 mg PO DAILY HPI Comments Details: 34-yr-old female presents for f/u visit. Since the last visit, patient's follow-up labs were notable for positive CHELSEA 1: 80 with nuclear speckled pattern. Patient was thus referred to Rheumatology for further evaluation. She has had initial rheumatology consult and workup, and was recently started on hydroxychloroquine for treatment of undifferentiated connective tissue disease. Rheumatology has reached out to us, to discuss patient's clinical history and previous workup. Further workup includes LP for autoimmune CSF studies.. Per Rheumatology request, I have initiated the LP order and will address post LP care with patient as she has a history of post LP low-pressure headache. She also notes that her 3-year-old daughter is a recently diagnosed with autism spectrum disorder, and was told that she be added to her medical history. Patient reports she is noticing more left lower extremity numbness. She continues to have left foot drop, but has been unable to wear her brace as it no longer fits since she gained weight during her most recent . She is overall walking okay- she is walking a lot at work. She is not noticing right lower extremity numbness or tingling. She may have a mild headache, which is responsive to Tylenol. She has not had any interval seizure. last seizure was in Mar 2021. Has f/u epilepsy clinic appt in [place] coming up. [facility] Medical History Long-term use of Plaquenil Undifferentiated connective tissue disease Anemia IIH (idiopathic intracranial hypertension) Surgical History H/O lithotripsy History of lumbar discectomy Family History Father Ventricular fibrillation Paternal Grandmother Squamous cell cancer of skin of nose Social History Alcohol intake: never Patient Tobacco Use Status: Never used Tobacco Physical Exam Vital Signs: Last Vital Signs Pulse 82 09/05/24 13:02 BP 120/78 09/05/24 13:02 Pulse Ox 98 09/05/24 13:02 Oxygen Delivery Method Room Air 09/05/24 13:02 BMI result Body Mass Index 35.9 Const General: cooperative and no acute distress Orientation/consciousness: patient oriented x3 Resp Effort & Inspection: normal respiratory effort and able to speak in complete sentences Neuro Other: LLE decreased sensation- baseline BLE hip flexor 5/5 Right foot flexor- 5/5 Left foot flexor- 5-/5 Gait better today- chronic left leg high step. General: patient oriented x3 Cranial nerves: Yes CN's II-XII intact bilaterally Cognition (Neuro): normal cognition Psych Appearance: grossly normal Mental Status: mental status grossly normal Speech and movement: Normal speech and movement present Affect: normal affect Attitude: cooperative Assessment & Plan Assessment & Plan (1) Left foot drop: Comment: s/p left L5-S1 large disc herniation in 2017. Code(s): M21.372 - Foot drop, left foot Category: Medical (2) History of lumbar discectomy: Comment: Left L5-S1 by Dr Lemon (2017) Code(s): Z98.890 - Other specified postprocedural states Category: Surgical (3) Gait difficulty: Code(s): R26.9 - Unspecified abnormalities of gait and mobility Category: Medical (4) Seizure: Comment: both epileptic and non-epileptic. Code(s): R56.9 - Unspecified convulsions Category: Medical (5) Family history of autistic disorder: Comment: Pt's dtr dx'd at age 4. Code(s): Z81.8 - Family history of other mental and behavioral disorders Category: Medical Plan For unspecified connective tissue disorder: Will request previous 2020 (x's 2) LP/CSF studies from [facility]. LP CSF studies per rheumatology I have placed order for LP under fluoroscopy. Reviewed post LP care instructions including rest, fluids, caffeine. We will provide short course of Fioricet p.r.n.- as a rescue agent. Patient advised this may decreased efficacy of her Trileptal dose some. For LLE foot drop, hypoesthesia: RLE MS improved. Patient may benefit from trying a new LLE AFO- information shared on a OTC AFO Continue PT exercises Continue on Trileptal for seizure prevention. ? f/u in 6 months or sooner prn. Medications: New xvkzjwyrxf-kfoujsfcnplao-gisr 50-325-40 mg 1 cap PO Q4H 30 days PRN 20 caps 2RF pain Coding Level of Care Code Est Pt Level 4 (47583) Diagnoses Left foot drop M21.372 History of lumbar discectomy Z98.890 Gait difficulty R26.9 Seizure R56.9 Family history of autistic disorder Z81.8
--- OUTSIDE RECORDS SUMMARY | 2024-09-05 14:21 | XMS_ITS | Encounter Summary ---
Author Organization [facility] Address [address] [place] [address] Care Team Providers Care Pitch Worker Name Role Phone Maria Antonia Mckeon Primary Care Provider [phone] Carlotta Saravia MD Primary Care Provider [phone] Reason for Visit * Reason Comments Medication Refill Encounter Details Date Type Department Care Team (Late st Contact Info) Description 03/07/2021 Refill [facility] 85 [facility] [address] [place] [phone] Geraldine Lowry MD 85 [facility] [address] [place], [place] [phone] Mosley matter heterotopia (HCC) Social History Tobacco Use Types Packs/Day Years Used Date Smoking Tobacco: Never Smokeless Tobacco: Never Alcohol Use Standard Drinks/Week Comments Not Currently 0 (1 standard drink = 0.6 oz pur e alcohol) Comments Yes Sex and Gender Information Value Date Recorded Sex Assigned at Female 10/03/2023 10:29 AM EST Gender Identity Female 09/11/2021 9:39 AM EST Sexual Orientation Heterosexual (straight) 09/11 9:39 AM EST documented as of this encounter Plan of Treatment Not on file documented as of this encounter Visit Diagnoses Diagnosis 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
--- OUTSIDE RECORDS SUMMARY | 2024-09-05 14:21 | XMS_ITS | Clinical Summary ---
Author Organization [facility] Address [address] [place] [address] Care Team Providers Care Healthcare Administrative Assistant Name Role Phone Alpesh Esposito MD Primary Care Provider Surgical History Surgery Date Site/Laterality Comments LUMBAR LAMINECTOMY 11/2015 PROCEDURE: HISTORICAL LUMB LAMINECTOMY; COMMENT: L5-S1 WISDOM TOOTH EXTRACTION PROCEDURE: HISTORICAL WISDOM TEETH EXTRACTION OTHER SURGICAL HISTORY PROCEDURE: OK HEARING TEST 6 MOS PRIOR TO EAR TUBE INSERTION Medical History Medical History Date Comments Major depressive disorder, s amita episode, moderate (CMS/HCC) DX:Major depressive disord er, single episode, moderate (HCC) Asthma with allergic rhinitis DX :Asthma with allergic rhinitis Chronic low back pain DX:Chronic low back pain 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 Demyelinating illness Complex partial seizure (CMS/HCC) 09/24/2019 DX:Complex partial seizure (HCC); COMMENT: Recently diagnosed- EEG showed temporal lobe seizures Family History Medical History Relation Name Comments Hypertension Father Relation Name Status Comments Brother Other Father Alive Mother Alive Social History Tobacco Use Types Packs/Day Years Used Date Smoking Tobacco: Never Smokeless Tobacco: Never Alcohol Use Standard Drinks/Week Comments Yes 0 (1 standard drink = 0.6 oz pur e alcohol) Sex and Gender Information Value Date Recorded Sex Assigned at Not on file Gender Identity Not on file Sexual Orientation Not on file Obstetrics History Plan of Treatment Health Maintenance Due Date Last Done Comments Hepatitis B Vaccines (1 of 3 - 19+ 3-dose series) 2010 Cervical Cancer Screening: P ap Smear 01/07/2012 Pneumococcal Vaccine: Pediatrics (0 to 5 Years) and At-Risk Patients (6 to 64 Years) (2 of 2 - PCV) 09/18/2019 09/18/2018 Depression Screening 07/17/2022 HIV Screening 07/17/2022 Hepatitis C Screening 07/17/2022 Social Influencers of Health Screening 07/17/2022 COVID-19 Vaccine (1 - 2023-2 5 season) 2024 Influenza Vaccine (#1) 2024 , 04/24/2018 DTaP,Tdap,and Td Vaccines (2 - Td or Tdap) 08/13/2026 08/13/2016 HIB Vaccines Aged Out No longer eligi ble based on patient's age to complete this topic HPV Vaccines Aged Out No longer eligi ble based on patient's age to complete this topic Hepatitis A Vaccines Aged Out No long er eligible based on patient's age to complete this topic IPV Vaccines Aged Out No longer eligi ble based on patient's age to complete this topic MMR Vaccines Aged Out No longer eligi ble based on patient's age to complete this topic Meningococcal ACWY Vaccine Aged Out N o longer eligible based on patient's age to complete this topic RSV Immunization Patients Under 20 months Aged Out No longer eligible b ased on patient's age to complete this topic Varicella Vaccines Aged Out No longer eligible based on patient's age to complete this topic Advance Directives Documents on File Type Date Recorded Patient Home Health Aide Expl anation Health Care Decision (hx) 06/04/2022 [facility] Care Teams Healthcare Administrative Assistant Relationship Specialty Start Date End Date Alpesh Esposito MD PCP - General Internal Medicine 03/30/18
--- OUTSIDE RECORDS SUMMARY | 2024-09-05 14:21 | XMS_ITS | Encounter Summary ---
Author Organization [facility] Address [address] [place] [address] Care Team Providers Care Glass Novelty Maker Name Role Phone Maria Antonia Mckeon Primary Care Provider Carlotta Saravia MD Primary Care Provider [phone] Encounter Details Date Type Department Care Team (Late st Contact Info) Description 10/06/2020 Scanned Document [facility] [place] [address] [facility] [address] [place] [phone] Abiola Coello MD 85 [facility] [address] [place], [place] [phone] Social History Tobacco Use Types Packs/Day Years [...] Orientation Heterosexual (straight) 09/11 9:39 AM EST COVID-19 Exposure Response Date Recorded In the last month, have you been in contact with someone who was confirmed or suspected to have Coronavirus / COVID-19? No / Unsure 09/23/2020 9:38 AM EST documented as of this encounter Plan of Treatment Not on file documented as of this encounter Visit Diagnoses Not on filedocumented in this encounter Care Teams Glass Novelty Maker Relationship Specialty Start Date End Date Maria Antonia Mckeon 25 [facility] [address] [place] [address] PCP - General 08/26/20 07/14/22 Carlotta Saravia MD 57 [facility] [address] [place] [address] PCP - General 07/15/22 documented as of this encounter
--- OUTSIDE RECORDS SUMMARY | 2024-09-05 14:21 | XMS_ITS | Clinical Summary ---
Author Organization [facility] Address [address] [place] [address] Care Team Providers Care Dielectric Machine Operator Name Role Phone Carlotta Saravia MD Primary Care Provider [phone] Allergies Active Allergy Reactions Criticality Noted Date Comments Nickel Rash/Dermatitis Low 03/18/2022 Pickled Meat Itching Low 11/09/2022 Pollen Extract Itching Low 07/15/2022 Topiramate Other (See Comments) 09/23/2020 Patient experienced hypersomnia and martinez Medications Medication Sig Dispensed Refills Start Date End Date Status traZODone (DESYREL) 50 MG tablet Take 0.5 tablets (25 mg total) by mouth nightly as needed for insomnia. QHS Active FOLIC ACID PO Take 1,600 mcg by mouth daily. Active MV-Min-Fe Fum-FA-DHA ( MULTIVITAMIN + DHA PO) Take by mouth. Active cetirizine (ZyrTEC) 10 MG tablet Take 1 tablet (10 mg total) by mouth daily. QHS Active clonazePAM (KlonoPIN) 0.5 MG tablet Take 1 tablet (0.5 mg total) by mouth 2 times daily (every 12 hours) as needed. PRN FOR MORE THAN 2 SEIZURES IN 24 HOURS Active Qulzoruuke-CSHY-Ewtjy ine (FIORICET PO) Take by mouth. 50/326/40 mg PRN Active vortioxetine (TRINTELLIX) 10 MG tablet Take by mouth daily. Active docusate sodium (COLACE) 10 mg/mL liquid Take 10 mL (100 mg total) by mouth 2 (two) times a day. Active ibuprofen (MOTRIN) 800 mg tablet Take 1 tablet (800 mg total) by mouth. 05/12/2021 Active acetaminophen (TYLENOL) 325 MG tablet Take 2 tablets (650 mg total) by mouth. 05/12/2021 Active OXcarbazepine (TRILEPTAL) 300 MG tabletIndications:Gra y matter heterotopia (HCC) Take 3 tablets (900 mg total) by mouth 2 (two) times a day. 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 Lumbar disc herniation 04/24/2018 Moderate persistent asthma without complication 04/24/2018 03/10/2023 Family History Medical History Relation Name Comments Asthma Brother 1 Atrial fibrillation Father Endometriosis Mother Relation Name Status Comments Brother 1 Alive Brother 2 Alive Father Alive Mother Alive Social History Tobacco [...] Orientation Heterosexual (straight) 09/11 9:39 AM EST Last Filed Vital Signs Vital Sign Reading Time Taken Comments Blood Pressure 110/73 10/04/2023 4:23 PM EST Pulse 87 10/04/2023 4:23 PM EST Temperature - - Respiratory Rate 16 10/04/2023 4:23 PM EST Oxygen Saturation 99% 03/10/2023 12:30 PM EDT Inhaled Oxygen Concentration - - Weight 87.3 kg (192 lb 8 oz) 10/04/2023 4:23 PM EST Height 172.7 cm (5' 8 ) 10/04/2023 4:23 PM EST Body Mass Index 29.27 10/04/2023 4:23 PM EST Plan of Treatment Health Maintenance Due Date Last Done Comments Hepatitis C Virus Screening 1991 HIV Screening 01/07/2004 DTaP/Tdap/Td Vaccines (1 - Tdap) 2010 Hepatitis B Vaccines (1 of 3 - 19+ 3-dose series) 2010 Pneumococcal Vaccine: Pediatric (0-5 Years) and At-Risk Patients (6 to 49 Years) (1 of 2 - PCV) 2010 Pap Smear (Ages 21-65) 01/07/2012 Influenza Vaccine 03/15/2024 08/03/2023, , 04/30/2019, Additional history exists COVID-19 Vaccine ( - 2023- season) 2024 HPV Vaccines Aged Out No longer eligi ble based on patient's age to complete this topic Care Teams Dielectric Machine Operator Relationship Specialty Start Date End Date Caroltta Saravia MD [address] [address] PCP - General 07/15/22
== END 2024-09-05 13:51 | disposition home or self-care (01) ==
PROVIDERS: PCP Internal Medicine; Visit Provider Nurse Practitioner Family
DX: M21.372 Foot drop, left foot (principal); Z98.890 Other specified postprocedural states; R26.9 Unspecified abnormalities of gait and mobility; R56.9 Unspecified convulsions; Z81.8 Family history of other mental and behavioral disorders
CPT/HCPCS: 99214

== ENCOUNTER 2024-10-19 09:15 | Day surgery (SDC) | payer OTHER, SELFPAY ==
[2024-10-19] VITALS (8 sets, daily range): BP systolic 124–137; BP diastolic 69–83; PULSE 66–83; RESP 16–100; TEMP 36.6–36.8; O2SAT 96–100; BMI 34.5
--- NOTE | ~2024-10-19 | FL_ITS ---
EXAMINATION: XR LUMBAR PUNCTURE UNDER FLUOROSCOPY. CLINICAL INFORMATION: M35.9 - Systemic involvement of connective tissue, unspecified COMPARISON: None available. TECHNIQUE: Following explaining fluoroscopy-guided lumbar puncture procedure, benefits in risk, a written consent was obtained. Patient was placed prone on fluoroscopy table and preliminary fluoroscopy was obtained up to side was selected on the skin marked. The marked site was cleaned and draped in usual sterile manner. 1% lidocaine was inserted puncture site. A 22-gauge spinal needle was inserted from the skin intrathecally at the L4-5 disc level . After removing stylet also included 10, patient was placed in left lateral ligament is UN opening CSF pressure was obtained. Subsequently 8 mL of fluid was collected in 4 test tubes and sent to lab. Stylet was reintroduced and needle withdrawn. Complete hemostasis achieved at puncture site. Sterile dressing applied post procedure. Patient tolerated procedure very well. FINDINGS: Unremarkable limited imaging obtained the lumbar spine is normal in appearance. The opening CSF pressure was 17 cm of water. 8 mL of clear CSF fluid was collected in 4 test tubes and sent to lab as per referring physician's orders. FLUOROSCOPY TIME: 26 seconds DOSE AREA PRODUCT: 851.5 uGy-m2 (microgray-meter squared) FL/FL guided lumbar puncture LP IMPRESSION: Successful fluoroscopy-guided lumbar puncture without immediate complications. Fluoroscopy time 26 seconds. DAP 851.5 mg. Electronically signed by: Wale Church MD 10/22/2024 01:29 PM EDT
[2024-10-19 09:53] LABS: UPreg QC Valid YES; Urine Pregnancy NEGATIVE (NEGATIVE)
[2024-10-19 10:03] LABS: Hematocrit 39.2 % (37.0-47.0); Hemoglobin 13.1 g/dl (12.0-16.0); Mean Corpuscular HGB Conc 33.4 g/dl (31.0-35.0); Mean Corpuscular Hemoglobin 27.6 pg (27.0-33.0); Mean Corpuscular Volume 82.7 fL (80.0-98.0); Platelet Count 242 X10*3/uL (160-400); Red Blood Count 4.74 X10*6/uL (4.20-5.50); Red Cell Distribution Width 13.3 % (11.0-16.0); White Blood Count 7.3 X10*3/uL (4.8-10.8)
[2024-10-19 10:13] LABS: Prothrombin Time 11.7 SEC (10.9-12.4)
[2024-10-19] MEDS: Acetaminophen 325 MG TABLET 650 MG PO (12:00)
[2024-10-19] MEDS: Lidocaine HCl 1 % MPF 30 ML VIAL 5 ML INTRAARTIC (12:40)
== END 2024-10-19 13:38 | disposition home or self-care (01) ==
PROVIDERS: Anesthesiology; Physician Assistant Surgical; Radiology Diagnostic Radiology; Visit Provider Nurse Practitioner Family
PROC: 009U3ZZ Drainage of Spinal Canal, Percutaneous Approach (ICD-10-PCS; CPT 62270; principal; 2024-10-19 11:00)
DX: M35.9 Systemic involvement of connective tissue, unspecified (principal); R76.8 Other specified abnormal immunological findings in serum; R56.9 Unspecified convulsions; G93.2 Benign intracranial hypertension; D64.9 Anemia, unspecified; Z79.899 Other long term (current) drug therapy; Z88.8 Allergy status to other drugs, medicaments and biological substances; Z87.442 Personal history of urinary calculi; Z98.890 Other specified postprocedural states
CPT/HCPCS: 36415; 62328; 81025; 83516; 85027; 85610; J2003

== ENCOUNTER → 2024-10-19 11:00 | Outpatient (BNV) | payer OTHER, SELFPAY | PROVIDERS: Visit Provider Radiology Diagnostic Radiology | DX: M35.9 Systemic involvement of connective tissue, unspecified (principal) | CPT/HCPCS: 62328 ==

== ENCOUNTER 2024-12-11 12:02 | Outpatient (AMB) | payer OTHER, SELFPAY ==
[2024-12-11 12:38] VITALS: BP 118/70; PULSE 87; O2SAT 98
--- NOTE | 2024-12-11 12:38 | A.OFFVIS_ITS ---
Vital Signs 12/11/24 12:38 Weight 215 lb 9.793 oz BP 118/70 Blood Pressure Location Lt brachial Position Sitting Pulse 87 Pulse Source Pulse Oximeter Pulse Oximetry (%) 98 Oxygen Delivery Method Room Air Intake Visit Reasons: CHELSEA + Intake Note: ?Patient presents today for follow up on +CHELSEA. She was last seen by Dr. Zapata on 08/24/24. Allergies topiramate [From Topamax] Allergy (Severe, Verified 12/11/24 12:41) seizure changes Medication List - Last Reconciled 12/11/24 by Puja Zapata MD [id number] 50-325-40 mg 1 cap PO Q4H PRN 30 days cetirizine (Zyrtec) 10 mg PO BEDTIME folic acid 1 mg PO DAILY hydroxychloroquine (Plaquenil) 200 mg PO BID 90 days [Left AFO As directed. [facility] [address] [place] [id number] ] melatonin 10 mg PO BEDTIME PRN methotrexate sodium 15 mg (6 x 2.5 mg) PO QWEEK 90 days multivitamin 1 tab PO DAILY oxcarbazepine (Trileptal) 900 mg PO BID psyllium husk (Metamucil) 0.4 grams PO DAILY trazodone 25 mg PO BEDTIME vortioxetine (Trintellix) 10 mg PO DAILY HPI Comments Details: Patient is a 34-year-old female with sensory neuropathy, seizures (with epilepsy and non epileptic foci) and undifferentiated connective tissue disease here today for follow up Interval History: Patient last seen 08/24/2024 with me. At that time she was following up for positive CHELSEA. Plan to get LP to evaluate CSF for potential neuropsychiatric lupus. CSF and serum negative for anti ribosomal P Started on Plaquenil and then methotrexate for inflammatory type arthritis in the setting of UCTD Since starting the Plaquenil and the methotrexate patient has noted improvement in hand pain and her right leg pain. Continues to complain of left foot pain associated with numbness and tingling Rheumatologic History: UCTD based on low positive CHELSEA 1:80 and low positive dsDNA 10+ inflammatory type arthritic symptoms. Negative CSF for anti ribosomal Ab Plaquenil 08/2024 partially effective Added methotrexate 11/2024 effective Initial History: 2015 when the Neurologist noted she developed a left foot drop and left lower extremity weakness. She was found to have a left L5-S1 large disc herniation which was surgically repaired in 2016. Unfortunately in the left lower extremity weakness persisted and EMG in 2017 revealed a left L4-S1 denervated muscle consistent with mild chronic left L4-L5 radiculopathy. In 2020, she had an uncomplicated vaginal delivery with epidural and immediately after she noted that her right lower extremity was ?? for 12 hours. She noticed that she was tripping over her right foot and having numbness and tingling from the knees to the toes. Was evaluated for MS with Brain and whole spine MRI with contrast, no evidence of MS Denies rashes, photosensitivity, alopecia, oral/nasal ulcers (does report c anker sores ), sicca symptoms, lymphadenopathy, chest pain/shortness of breath, history of pericarditis or pleuritis, foamy urine, lower extremity edema, muscle weakness, Raynaud's Also denies history of CVA, psychosis, history of kidney problems, history of cytopenias, history of VTE including PE or DVTs Joint pain - hands (1st CMC joint, MCPs, PIPs) - pain is worse in the evening - Notes stiffness in the AM 30-60mins but no swelling - knees - pain all day - going up stairs hurts more than going down - ankles - thinks it may be because of the foot drop OB History: +1 (1 ) No history of pre eclampsia partial abruption with second delivery No known autoimmune family history Current Rheumatology Medication(s): Methotrexate 15 mg weekly Folic acid 1 mg daily Plaquenil 200 mg b.i.d. PFSH Medical History Long-term use of Plaquenil Undifferentiated connective tissue disease Anemia IIH (idiopathic intracranial hypertension) Surgical History H/O lithotripsy History of lumbar discectomy Family History Father Ventricular fibrillation Paternal Grandmother Squamous cell cancer of skin of nose Social History Are you a primary animal care worker to a significant other at home: No Do you presently have visiting nurse or other home services: No Alcohol intake: never Patient Tobacco Use Status: Never used Tobacco Review of Systems Const Details: Review of Systems Constitutional: Denies fever, chills, weight loss ENT: Denies vision changes, eye pain or eye redness, dental caries, dry mouth GI: Denies nausea, vomiting, diarrhea, abdominal pain, change in BM Pulm: Denies SOB, MCNULTY, hemoptysis, wheezing Cards: Denies chest pain, palpitations Skin: Denies Raynaud's, rash, nail changes, photosensitivity, SPORTS ANALYST: see HPI MSK: as per HPI All other systems reviewed and are unremarkable except noted above Physical Exam Vital signs reviewed Physical Examination CONSTITUITIONAL Patient alert and cooperative. Well appearing and in no apparent painful di stress HEENT Conjunctiva and sclera clear. ?Pupils equal round and reactive to light. ?No lymphadenopathy. ? CHEST/RESPIRATORY SYSTEM Normal respiratory effort and able to speak in complete sentences. ?Clear to auscultation bilaterally. ?No crackles, rales, rhonchi, wheezes heard. CARDIAC SYSTEM Regular rate and rhythm. ?S1 and S2 heard no murmurs. ?Radial pulses intact bilaterally MSK Hands: ?Good programmer engineering and scientific strength bilaterally. No deformities noted. ?No synovitis noted to the MCPs, PIPs or DIPs. ?No tenderness to palpation of these joints. Wrists: ?Full range of motion at the wrists without pain. ?No tenderness to palpation or synovitis noted to the wrists. Elbows: Full range of motion without pain. No tenderness, weakness, swelling, increased warmth or erythema. Shoulders: Full range of motion without pain. No tenderness, weakness, swelling, increased warmth or erythema. Knees: ?Full range of motion. ?No tenderness, swelling, increased warmth or erythema.?No effusion or crepitations Ankles: Full range of motion. ?No tenderness, swelling, increased warmth or erythema.? Feet: ?Positive squeeze test on the left SKIN Skin intact without rashes. Results Reviewed Results Reviewed: Laboratory Tests 07/23/24 10/19/24 16:54 09:56 WBC 7.3 RBC 4.74 Hgb 13.1 Hct 39.2 Plt Count 242 ESR 7 Immunology Labs 02/08/24 07/23/24 12:15 16:54 CHELSEA Screen POSITIVE A CHELSEA Titer 1:80 H SS-A/Ro Antibody <1.0 NEG SS-B/La Antibody <1.0 NEG Sm ([place]) Antibody <1.0 NEG U1 snRNA A Antibody <11 U1 snRNA C Antibody <11 U1 snRNA 70kD Antibody <11 SM/SHORT ORDER COOK IgG Antibody <1.0 NEG Scl-70 Scleroderma Ab <11 A-PM Scleroderma 75 Ab <11 A-PM Scleroderma 100 Ab <11 Double Strand DNA Ab 10 H Anti-ds DNA Titer (Crith) 1:10 H Th/To SHORT ORDER COOK Ab <11 U3-SHORT ORDER COOK (Fibrillarin) Ab <11 RNA Polymerase III RP11 Ab <11 RNA Polymerase III RP155 Ab <11 Centromere B Antibody <11 Centromere Protein A Ab <11 Beta-2-GPI IgG Ab <2.0 Beta-2-GPI IgA Ab <2.0 Beta-2-GPI IgM Ab <2.0 Anti-Cardiolipin IgG Ab <2.0 Anti-Cardiolipin IgM Ab <2.0 Complement C3 158 Complement C4 30 Assessment & Plan Assessment & Plan (1) Undifferentiated connective tissue disease: Code(s): M35.9 - Systemic involvement of connective tissue, unspecified Category: Medical Plan: #Undifferentiated connective tissue disease Patient is a 34-year-old female with several neurologic issues comes in with a low positive CHELSEA 1:80 and a low positive dsDNA 10. Based on her inflammatory type arthritis she was given a diagnosis of undifferentiated connective tissue disease. Had LP with CSF analysis showing negative ribosome antibody as well as negative serum ribosome antibody. CSF was also noninflammatory. Unlikely that her neurological symptoms are related to lupus. Despite that still believe she has undifferentiated connective tissue disease which requires treatment. Initially on Plaquenil which was having good response but subsequently was not helping and so she was transitioned to methotrexate. Doing well on methotrexate and Plaquenil. Still has some residual left foot pain which may being neuropathy. We will try alpha lipoic acid Plan - Start alpha lipoic acid 600mg daily - Continue plaquenil 200mg bid - Methotrextae 15mg weekly - Folic acid 1mg daily - Labs today: CBC, CMP, ESR, CRP - RTC 4 months - Lbs before visit: CBC, CMP, ESR, CRP, C3, C4, dsDNA, UA, UPC (2) Long-term use of Plaquenil: Code(s): Z79.899 - Other alf (current) drug therapy Category: Medical Plan: #Long-term Use of Hydroxychloroquine Discussed with patient the risks and benefits of hydroxychloroquine in managing the rheumatic condition Benefits include: - Reduced pain, reduce mortality, maintenance of remission and reduction of flares Risks include: - GI upset, skin hyperpigmentation, retinal toxicity (especially after more than 5 years of use), myopathy Advised yearly ophthalmology visits (3) Encounter for methotrexate monitoring: Code(s): Z51.81 - Encounter for therapeutic drug level monitoring; Z79.631 - nursing home (current) use of antimetabolite agent Plan: #Long-term Current Use of Methotrexate Discussed with patient the benefits and risks of methotrexate for managing their rheumatic condition Benefits include reduced pain, reduced mortality, maintenance of remission and reduction of flares Risks include oral ulcers, photosensitivity, hepatotoxicity, hematologic toxicity, pneumonitis, flu-like symptoms (especially day after administration), nodulosis, lymphomas ? Limit alcohol and avoid Bactrim ? Monitoring: ?CBC, BMP, LFTs every 3-4 months and hepatitis serologies as needed ? Methotrexate is teratogenic. ?If planning need to discontinue 3 months prior to conception Plan I spent 30 minutes reviewing the record and labs, taking a history, examining the patient, discussing the treatment plan, reviewing literature, and documentin g in the medical record Orders: Orders Complete Blood Count Auto Diff Today M3.9 - Systemic involvement of connective tissue, unspecified Comprehensive Met. Panel Today M3.9 - Systemic involvement of connective tissue, unspecified C Reactive Protein Today M35.9 - Systemic involvement of connective tissue, unspecified Complement C3 4 Months M35.9 - Systemic involvement of connective tissue, unspecified Complement C4 4 Months M35.9 - Systemic involvement of connective tissue, unspecified Complete Blood Count Auto Diff 4 Months M35.9 - Systemic involvement of connective tissue, unspecified C Reactive Protein 4 Months M35.9 - Systemic involvement of connective tissue, unspecified UA w Microscopic 4 Months M35.9 - Systemic involvement of connective tissue, unspecified Erythrocyte Sedimentation Rate Today M35.9 - Systemic involvement of connective tissue, unspecified Comprehensive Met. Panel 4 Months M35.9 - Systemic involvement of connective tissue, unspecified Erythrocyte Sedimentation Rate 4 Months M35.9 - Systemic involvement of connective tissue, unspecified Anti DNA DS Antibody 4 Months M35.9 - Systemic involvement of connective tissue, unspecified Protein Creatinine Ratio, Ur 4 Months M35.9 - Systemic involvement of connective tissue, unspecified Medications: New alpha lipoic acid 600 mg PO DAILY 90 caps 1RF G57.92 - Unspecified mononeuropathy of left lower limb Refilled folic acid 1 mg PO DAILY 90 tabs 1RF M35.9 - Systemic involvement of connective tissue, unspecified methotrexate sodium 15 mg (6 x 2.5 mg) PO QWEEK 90 days 78 tabs 1RF M35.9 - Systemic involvement of connective tissue, unspecified hydroxychloroquine (Plaquenil) 200 mg PO BID 90 days 180 tabs 1RF M35.9 - Systemic involvement of connective tissue, unspecified, R76.8 - Other specified abnormal immunological findings in serum Coding Level of Care Code Est Pt Level 4 (31168) Complex EM visit Add On G2211 Diagnoses Undifferentiated connective tissue disease M35.9 Long-term use of Plaquenil Z79.899 Encounter for methotrexate monitoring Z51.81; Z79.631
--- OUTSIDE RECORDS SUMMARY | 2024-12-11 14:08 | XMS_ITS | Clinical Summary ---
Author Organization [facility] Address [address] [place] [address] Care Team Providers Care Wrapper Caser Name Role Phone Alpesh Esposito MD Primary Care Provider Surgical History Surgery Date Site/Laterality Comments LUMBAR LAMINECTOMY 11/2015 PROCEDURE: HISTORICAL LUMB LAMINECTOMY; COMMENT: L5-S1 WISDOM TOOTH EXTRACTION PROCEDURE: HISTORICAL WISDOM TEETH EXTRACTION OTHER SURGICAL HISTORY PROCEDURE: SC HEARING TEST 6 MOS PRIOR TO EAR TUBE INSERTION Medical History Medical History Date Comments Major depressive disorder, s amita episode, moderate (CMS/HCC V24, CMS/HCC V28) DX:Major depressive disorder , single episode, moderate (HCC) Asthma with allergic [...] both hemispehers-? Demyelinating illness Complex partial seizure (CMS /HCC V24, CMS/HCC V28) 09/24/2019 DX:Complex partial seizure ( HCC); COMMENT: Recently diagnosed- EEG showed temporal lobe seizures Family History Medical History Relation Name Comments Hypertension Father Relation Name Status Comments Brother Other Father Alive Mother Alive Social History Tobacco Use Types Packs/Day Years Used Date Smoking Tobacco: Never Smokeless Tobacco: Never Alcohol Use Standard Drinks/Week Comments Yes 0 (1 standard drink = 0.6 oz pur e alcohol) Comments Unknown Sex and Gender Information Value Date Recorded Sex Assigned at Not on file Legal Sex Female 8:23 PM EST Gender Identity Not on file Sexual Orientation [...] - 2023-2 5 season) 2024 Influenza Vaccine (Season Ended) 2025 04/30/2019, 04/24/2018 DTaP,Tdap,and Td Vaccines (2 - Td [...] patient's age to complete this topic Meningococcal B Vaccine Aged Out No l onger eligible based on patient's age to complete this topic RSV Immunization Patients Under 20 months Aged Out No longer eligible b ased on patient's age to complete this topic Varicella Vaccines Aged Out No longer eligible based on patient's age to complete this topic Advance Directives Documents on File Type Date Recorded Patient Certified Orthotic Fitter Expl anation Health Care Decision (hx) 06/04/2022 [facility] Care Teams Wrapper Caser Relationship Specialty Start Date End Date Alpesh Esposito MD PCP - General Internal Medicine 03/30/18
--- OUTSIDE RECORDS SUMMARY | 2024-12-11 14:08 | XMS_ITS | Encounter Summary ---
Author Organization [facility] Address [address] [place] [address] Care Team Providers Care Assistant Golf Course Superintendent Name Role Phone Maria Antonia Mckeon Primary Care Provider Carlotta Saravia MD Primary Care Provider [phone] Reason for Visit * Reason Comments Medication Refill Encounter Details Date Type Department Care Team (Late st Contact Info) Description 03/07/2021 Refill [facility] Neuroscience [facility] 85 [facility] [address] [place] [id number] Geraldine Lowry MD 85 [facility] [address] [place] [address] Mosley matter heterotopia (HCC) Social History Tobacco Use Types Packs/Day Years Used Date Smoking Tobacco: Never Smokeless Tobacco: Never Alcohol Use Standard Drinks/Week Comments Not Currently 0 (1 standard drink = 0.6 oz pur e alcohol) Comments Yes Sex and Gender Information Value Date Recorded Sex Assigned at Female 10/03/2023 10:29 AM EST Legal Sex Female 7:12 PM EST Gender Identity Female 09/11/2021 9:39 AM EST Sexual Orientation Heterosexual (straight) 09/11 9:39 AM EST documented as of this encounter Plan of Treatment Not on file documented as of this encounter Visit Diagnoses Diagnosis 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
--- OUTSIDE RECORDS SUMMARY | 2024-12-11 14:08 | XMS_ITS | Clinical Summary ---
Author Organization [facility] Address [address] [place] [address] Care Team Providers Care Circular Saw Filer Name Role Phone Carlotta Saravia MD Primary Care Provider [phone] Allergies Active Allergy Reactions Criticality Noted Date Comments Nickel Rash/Dermatitis Low 03/18/2022 Pickled Meat Itching Low 11/09/2022 Pollen Extract Itching Low 07/15/2022 Topiramate Other (See Comments) 09/23/2020 Patient experienced hypersomnia and martinez Medications traZODone (DESYREL) 50 MG tablet Take 0.5 tablets (25 mg total) by mouth nightly as needed for insomnia. QHS Active cetirizine (ZyrTEC) 10 MG tablet Take 1 tablet (10 mg total) by mouth daily. QHS Active Butalbital-APAP- Caffeine (FIORICET PO) Take by mouth. 50/326/40 mg PRN Active vortioxetine (TRINTELLIX) 10 MG tablet Take by mouth daily. Active ibuprofen (MOTRIN) 800 mg tablet Take 1 tablet (800 mg total) by mouth. 1 Active acetaminophen (TYLENOL) 325 MG tablet Take 2 tablets (650 mg total) by mouth. 1 Active Plaquenil 200 MG tablet Take 1 tablet (200 mg total) by mouth 2 (two) times a day with meals. 5 Active OXcarbazepine (TRILEPTAL) 300 MG tabletIndication s:Mosley matter heterotopia (HCC) Take 3 tablets (900 mg total) by mouth 2 (two) times a day. 540 tablet 3 5 Active clonazePAM (KlonoPIN) 0.5 MG tabletIndication s:Mosley matter heterotopia (HCC),Focal epilepsy (HCC) Take 1 tablet (0.5 mg total) by mouth 2 times daily (every 12 hours) as needed for seizures. PRN FOR MORE THAN 2 SEIZURES IN 24 HOURS 10 tablet 5 Active Active Problems Problem Noted Date Diagnosed [...] 04/24/2018 03/10/2023 Overview (03/10/2023): Leanne Guillen at [facility] Lumbar disc herniation 04/24/2018 Moderate persistent asthma without complication 04/24/2018 03/10/2023 Encounters Date Type Department Care Team Description 11/05/2024 2:00 PM EDT Office Visit [facility] EPILEPSY [id number] 85 [facility] [address] [place] [phone] Geraldine Lorwy MD Focal epilepsy (HCC) (Primary Dx); Mosley matter heterotopia (HCC) 11/05/2024 Travel from Last 3 Months Family History Medical History Relation Name Comments Asthma Brother 1 Atrial fibrillation Father Endometriosis Mother Relation Name Status Comments Brother 1 Alive Brother 2 Alive Father Alive Mother Alive Social History Tobacco Use Types Packs/Day Years Used Date Smoking Tobacco: Never Smokeless Tobacco: Never Tobacco Cessation:Counseling Given: Not Answered Alcohol Use Standard Drinks/Week Comments Not Currently [...] Sign Reading Time Taken Comments Blood Pressure 116/78 11/05/2024 2:06 PM EDT Pulse 80 11/05/2024 2:06 PM EDT Temperature - - Respiratory Rate 18 11/05/2024 2:06 PM EDT Oxygen Saturation 99% 11/05/2024 2:06 PM EDT Inhaled Oxygen Concentration - - Weight 95.3 kg (210 lb) 11/05/2024 2:06 PM EDT Height 172.7 cm (5' 8 ) 10/04/2023 4:23 PM EST Body Mass Index 31.93 10/04/2023 4:23 PM EST Plan of Treatment Health Maintenance Due Date Last Done Comments Hepatitis C Virus Screening 1991 COVID-19 Vaccine (#1) 01/07/1996 HIV Screening 01/07/2004 DTaP/Tdap/Td Vaccines (1 - Tdap) 2010 Hepatitis B Vaccines (1 of 3 - 19+ 3-dose series) 2010 Pneumococcal Vaccine: Pediatric (0-5 Years) and At-Risk Patients (6 to 49 Years) (1 of 2 - PCV) 2010 Pap Smear (Ages 21-65) 01/07/2012 Influenza Vaccine 03/15/2024 08/03/2023, , 04/30/2019, Additional history exists HPV Vaccines Aged Out No longer eligi ble based on patient's age to complete this topic Procedures Procedure Name Priority Date/Time Associated Diagnosis Comments BASIC METABOLIC PANEL Routine 11/05/2024 2:48 PM EDT Focal epilepsy (HCC) OXCARBAZEPINE METABOLITE Routine 11/05/2024 2:48 PM EDT Focal epilepsy (HCC) from Last 3 Months Results * Oxcarbazepine Metabolite (11/05/2024 2:48 PM EDT) Oxcarbazepine Metabolite 28.5 8.0 - 35.0 mcg/mL [facility] Blood Blood specimen / Unknown 11/05/2024 2:48 PM EDT 11/05/2024 2:48 PM EDT us Geraldine Lowry MD LAB BLOOD ORDERABLES Final Resul t [facility] [address] [facility] [place] [phone] * (ABNORMAL) Basic Metabolic Panel (11/05/2024 2:48 PM EDT) Glucose 113(H) 65 - 99 mg/dL [facility] Comment: ? Fasting reference interval For someone without known diabetes, a glucose value between 100 and 125 mg/dL is consistent with prediabetes and should be confirmed with a follow-up test. Blood Urea Nitrogen (BUN) 16 7 - 25 mg/dL [facility] Creatinine 0.59 0.50 - 0.97 mg/dL [facility] Creatinine w/ eGFR 122 > OR = 60 mL/min/1. 73m2 [facility] BUN/Creatinine Ratio SEE NOTE: (calc) [facility] Comment: ?? Not Reported: BUN and Creatinine are within ?? reference range. ? Sodium 141 135 - 146 mmol/L [facility] Potassium 3.5 3.5 - 5.3 mmol/L [facility] Chloride 107 98 - 110 mmol/L [facility] CO2 27 20 - 32 mmol/L [facility] Calcium 9.1 8.6 - 10.2 mg/dL [facility] Blood Blood specimen / Unknown 11/05/2024 2:48 PM EDT 11/05/2024 2:48 PM EDT us Geraldine Lowry MD LAB BLOOD ORDERABLES Final Resul t [email or web address] [address] [place] [address] from Last 3 Months Insurance [facility] Care Teams Circular Saw Filer Relationship Specialty Start Date End Date Carlotta Saravia MD [address] [place] [id number] PCP - General 07/15/22
--- OUTSIDE RECORDS SUMMARY | 2024-12-11 14:08 | XMS_ITS | Encounter Summary ---
Author Organization [facility] Address [address] [place] [address] Care Team Providers Care Water Tender Name Role Phone Maria Antonia Mckeon Primary Care Provider Carlotta Saravia MD Primary Care Provider [phone] Encounter Details Date Type Department Care Team (Late st Contact Info) Description 10/06/2020 Scanned Document [facility] Neurosurgery [place] [address] [facility] [address] [place] [phone] Abiola Coello MD 85 [facility] [address] [address] [place] [address] Social History Tobacco Use Types Packs/Day Years [...] on filedocumented in this encounter Care Teams Water Tender Relationship Specialty Start Date End Date Maria Antonia Mckeon 25 [facility] [address] [place] [address] PCP - General 08/26/20 07/14/22 Carlotta Saravia MD 57 [facility][1] [address] [place] [address] PCP - General 07/15/22 documented as of this encounter
--- OUTSIDE RECORDS SUMMARY | 2024-12-11 14:08 | XMS_ITS | Patient Health Record ---
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 lives at home wtih who is an RN. close to her family, mother is also an RN. No substance hx, not a smoker. Currently 18 weeks (12/08/2020) with her first child. Problems Problem Type SNOMED Code ICD Code Onset Dates Problem Status W/U Status Risk Notes Problem Anxiety (17889536) Anxiety (F41.9) Active confirmed Problem Migraine (37865286) Migraine (G43.909) Active confirmed Problem Depression (476394109) Depression (F32.9) Active confirmed Problem [id number] Migraine without aura and without status migrainosus, not intractable (G43.009) Active confirmed Problem [id number] Major depressive disorder with single episode, in full remission (F32.5) Active confirmed Plan Of Treatment No Information Insurance Providers Payer Name Payer Address Payer Phone Subscriber Number Group Number Insured Name Patient Relationship to Insured Coverage Start Date Coverage End Date [facility] [address] [place] [address] [id number] Kwame Pinto Self - patient is the insured Medical (General) History Medical History History ICD Code Migraine G43.909 Anxiety F41.9 Depression F32.9 Seizure R56.9 lumbar radiculopathy Surgical History Surgery Date(Month/Year) lamenectomy L5-S1 11/2016 Hospitalization History Reason Date(Month/Year) surgery related seizures
== END 2024-12-11 13:01 | disposition home or self-care (01) ==
LOC: HO.RHE 12:02
PROVIDERS: PCP Internal Medicine; Visit Provider Student in an Organized Health Care Education/Training Program
DX: M35.89 Other specified systemic involvement of connective tissue (principal); Z79.899 Other long term (current) drug therapy; Z51.81 Encounter for therapeutic drug level monitoring; Z79.631 Long term (current) use of antimetabolite agent
CPT/HCPCS: 99214

== ENCOUNTER 2024-12-11 12:02 | Outpatient (REF) | payer OTHER, SELFPAY ==
[2024-12-11 13:18] LABS: MANUAL DIFF FLAG NO
[2024-12-11 14:05] LABS: Basophils Percent Auto 0.6 % (0-2); Eosinophils Absolute Auto 0.3 X10*3/uL (0.0-0.4); Eosinophils Percent Auto 4.2 % (0-4); Hematocrit 40.4 % (37.0-47.0); Hemoglobin 13.7 g/dl (12.0-16.0); Imm Gran Abs Auto 0.03 X10*3/uL (0.00-0.03); Imm Gran Pct Auto 0.4 % (0.0-0.4); Lymphocytes Absolute Auto 1.6 X10*3/uL (1.2-4.9); Lymphocytes Percent Auto 23.5 % (20-40); Mean Corpuscular HGB Conc 33.9 g/dl (31.0-35.0); Mean Corpuscular Hemoglobin 28.1 pg (27.0-33.0); Mean Corpuscular Volume 82.8 fL (80.0-98.0); Mean Platelet Volume 9.3 fL (9.4-12.3); Monocytes Absolute Auto 0.6 X10*3/uL (0.1-1.2); Monocytes Percent Auto 8.9 % (2-11); Neutrophils Absolute Auto 4.3 x10*3/uL (2.0-8.3); Neutrophils Percent Auto 62.4 % (45-73); Platelet Count 248 X10*3/uL (160-400); Red Blood Count 4.88 X10*6/uL (4.20-5.50); Red Cell Distribution Width 14.1 % (11.0-16.0); White Blood Count 6.9 X10*3/uL (4.8-10.8)
[2024-12-11 14:48] LABS: Erythrocyte Sedimentation Rate 4 MM/HR (0-20)
[2024-12-11 14:58] LABS: Alanine Aminotransferase 28 U/L (0-31); Albumin Level 4.3 g/dL (3.5-5.0); Alkaline Phosphatase 131 U/L (39-117); Anion Gap 10 (12-20); Aspartate Amino Transferase 23 U/L (5-31); Bilirubin Total 0.3 mg/dL (0.0-1.0); Blood Urea Nitrogen 15 mg/dL (9-16); C Reactive Protein 1.16 mg/dL (< or = 0.50); Calcium 8.8 mg/dL (8.4-10.2); Carbon Dioxide 26 mmol/L (22-29); Chloride 106 mmol/L (96-108); Estimated Glomerular Filt Rate > 60; Glucose Random 82 mg/dL (60-115); Potassium 3.8 mmol/L (3.3-5.1); Sodium 138 mmol/L (135-145); Total Protein 7.3 g/dL (6.5-8.0)
--- OUTSIDE RECORDS SUMMARY | 2024-12-11 15:10 | XMS_ITS | Clinical Summary ---
Author Organization [facility] Address [address] [place] [address] Care Team Providers Care Alternative Energy Engineer Name Role Phone Carlotta Saravia MD Primary Care Provider [phone] Allergies Active Allergy Reactions Criticality Noted Date [...] 04/24/2018 03/10/2023 Overview (03/10/2023): Leanne Guillen at [facility] Lumbar disc herniation 04/24/2018 Moderate persistent asthma without complication 04/24/2018 03/10/2023 Encounters Date Type Department Care Team Description 11/05/2024 2:00 PM EDT Office Visit HH EPILEPSY [id number] 85 [facility] [address] [place] [phone] Geraldine Lowry MD Focal epilepsy (HCC) (Primary Dx); [place] [...] Oxcarbazepine Metabolite 28.5 8.0 - 35.0 mcg/mL [facility] Blood Blood specimen / Unknown 11/05/2024 2:48 PM EDT 11/05/2024 2:48 PM EDT us Geraldine Lowry MD LAB BLOOD ORDERABLES Final Resul t [facility] [address] [facility] [place] [address] * (ABNORMAL) Basic Metabolic Panel (11/05/2024 2:48 PM EDT) Glucose 113(H) 65 - 99 mg/dL [employer] Comment: ? Fasting reference interval For someone without known diabetes, a glucose value between 100 and 125 mg/dL is consistent with prediabetes and should be confirmed with a follow-up test. Blood Urea Nitrogen (BUN) 16 7 - 25 mg/dL [employer] Creatinine 0.59 0.50 - 0.97 mg/dL [employer] Creatinine w/ eGFR 122 > OR = 60 mL/min/1. 73m2 [employer] BUN/Creatinine Ratio SEE NOTE: (calc) [employer] Comment: ?? Not Reported: BUN and Creatinine are within ?? reference range. ? Sodium 141 135 - 146 mmol/L [facility] Potassium 3.5 3.5 - 5.3 mmol/L [facility] Chloride 107 98 - 110 mmol/L [facility] CO2 27 20 - 32 mmol/L [facility] Calcium 9.1 8.6 - 10.2 mg/dL [facility] Blood Blood specimen / Unknown 11/05/2024 2:48 PM EDT 11/05/2024 2:48 PM EDT us Geraldine Lowry MD LAB BLOOD ORDERABLES Final Resul t [facility] [address] [place] [address] from Last 3 Months Insurance [facility] Care Teams Alternative Energy Engineer Relationship Specialty Start Date End Date Carlotta Saravia MD [address] [place] [id number] PCP - General 07/15/22
--- OUTSIDE RECORDS SUMMARY | 2024-12-11 15:10 | XMS_ITS | Encounter Summary ---
Author Organization [facility] Address [address] [place] [address] Care Team Providers Care Absorber Operator Name Role Phone Maria Antonia Mckeon Primary Care Provider Carlotta Saravia MD Primary Care Provider [phone] Encounter Details Date Type Department Care Team (Late st Contact Info) Description 10/06/2020 Scanned Document [facility] Neurosurgery [place] 85 [facility] [address] [place] [phone] Abiola Coello MD 85 [facility] [address] [place] [address] Social History Tobacco Use Types Packs/Day Years [...] on filedocumented in this encounter Care Teams Absorber Operator Relationship Specialty Start Date End Date Maria Antonia Mckeon 25 [facility] [address] [place] [address] PCP - General 08/26/20 07/14/22 Carlotta Saravia MD [address] [facility] [place] [address] [place] [address] PCP - General 07/15/22 documented as of this encounter
--- OUTSIDE RECORDS SUMMARY | 2024-12-11 15:10 | XMS_ITS | Clinical Summary ---
Author Organization [facility] Address [address] [place] [address] Care Team Providers Care Briar Shop Supervisor Name Role Phone Alpesh Esposito MD Primary Care Provider Surgical History Surgery Date Site/Laterality Comments LUMBAR LAMINECTOMY 11/2015 PROCEDURE: HISTORICAL LUMB LAMINECTOMY; COMMENT: L5-S1 WISDOM TOOTH EXTRACTION PROCEDURE: HISTORICAL WISDOM TEETH EXTRACTION OTHER SURGICAL HISTORY PROCEDURE: PA HEARING TEST 6 MOS PRIOR TO EAR [...] Documents on File Type Date Recorded Patient Event Sales Representative Expl anation Health Care Decision (hx) 06/04/2022 [facility] PROX[facility] Care Teams Briar Shop Supervisor Relationship Specialty Start Date End Date Alpesh Esposito MD PCP - General Internal Medicine 03/30/18
--- OUTSIDE RECORDS SUMMARY | 2024-12-11 15:10 | XMS_ITS | Encounter Summary ---
Author Organization [facility] Address [address] [place] [address] Care Team Providers Care Metal Hardener Name Role Phone Maria Antonia Mckeon Primary Care Provider Carlotta Saravia MD Primary Care Provider [phone] Reason for Visit * Reason Comments Medication Refill Encounter Details Date Type Department Care Team (Late st Contact Info) Description 03/07/2021 Refill [facility] Neuroscience [facility] 85 [facility] [address] [place] [phone] Geraldine Lowry MD 85 [facility] [address] [place] [address] [place] matter heterotopia (HCC) Social History Tobacco [...] brain documented in this encounter Care Teams Metal Hardener Relationship Specialty Start Date End Date Maria Antonia Mckeon 25 [facility] [address] [place] [address] PCP - General 08/26/20 07/14/22 Carlotta Saravia MD 57 [facility] [address] [place] [address] PCP - General 07/15/22 documented as of this encounter
== END 2024-12-11 12:03 | disposition home or self-care (01) ==
LOC: HO.LAB 12:02
PROVIDERS: PCP Internal Medicine; Visit Provider Student in an Organized Health Care Education/Training Program
DX: M35.9 Systemic involvement of connective tissue, unspecified (principal)
CPT/HCPCS: 36415; 80053; 85025; 85652; 86140

== ENCOUNTER 2025-04-01 13:09 | Outpatient (AMB) | payer OTHER, SELFPAY ==
--- OUTSIDE RECORDS SUMMARY | 2025-03-28 23:59 | XMS_ITS | Continuity of Care Document ---
Author Organization [facility] Address [address] [place] [address]- Care Team Providers Care Ssn/Ssbn Weapons Equipment Operator Name Role Phone Anette Hopkins Primary Care Physician Encounter [facility] Date(s): 02/26/25 - 03/28/25 [facility] [address] [place] [address]- Attending Physician: Faviola Phelps Admitting Physician: AdmtrFaviola Referring Physician: Admtr ArYary Encounter Type: Triage Allergies, Adverse Reactions, Alerts Substance Criticality Severity Reaction Reaction Severity Status topiramate Active Nickel Active Seasonale Active Other Food Allergy itching a nd GI upset sausage and pepperoni Active Immunizations Given and Recorded Vaccine Date Status Refusal Reason SARS-CoV-2(COVID-19)mRNA-LNP vac(tdq142) 06/11/24 Recorded SARS-CoV-2(COVID-19)mRNA-LNP vac(yfr338) 07/22/23 Recorded influenza virus vaccine, inactivated 05/21/24 Lee rded influenza virus vaccine, inactivated 05/16/23 Lee rded influenza virus vaccine, inactivated 05/14/22 Lee rded influenza virus vaccine, inactivated 05/28/21 Lee rded influenza virus vaccine, inactivated 04/30/19 Lee rded influenza virus vaccine, inactivated 04/24/18 Lee rded influenza virus vaccine, inactivated 05/04/17 Lee rded [id number] 12y+ bivalent booster vax 05/17/22 Recorded SARS-CoV-2 (COVID-19) mRNA BNT-162b2 vac 06/19/21 Recorded SARS-CoV-2 (COVID-19) mRNA BNT-162b2 vac 08/23/20 Recorded SARS-CoV-2 (COVID-19) mRNA BNT-162b2 vac 08/02/20 Recorded pneumococcal 23-valent vaccine 09/18/18 Recorded tetanus/diphtheria/pertussis, acel(Tdap) 08/13/16 Recorded Medications acetaminophen 325 mg oral tablet 650 mg, By Mouth, Every 4 hours, PRN, (1-3), may give 325mg per patient preference and re-dose [id number] within 4 hours, if needed. Patient should only receive a total of 650mg of Acetaminophen every 4 hours., Refills 0, Maintenance, Pain , Mild, 05/12/21 6:34:00 AM EDT, Partial fill upon patient re quest if the prescription is for a schedule II opioid drug. Start Date: 05/12/21 Status: Ordered Repeat number: 1 aspirin 81 mg oral tablet, chewable 81 mg, 1, tablet, By Mouth, 2 times a day, # 30 tablet, Refills 0, Maintenance, 11/24/23 8:26:00 AM EDT, Partial fill upon patient request if the prescription is for a schedule II opioid drug. Start Date: 11/24/23 Status: Ordered Quantity: 30.0 Unit: tablet Repeat number: 1 Diflucan 150 mg oral tablet 1 tablet = 150 mg, By Mouth, Once, # 1 tablet, 0 Refills, Soft Stop, 02/28/25 4:05:00 PM EDT, Tablet, [facility] #[id number], Partial fill upon patient request if the prescription is for a schedule II opioid drug., 170, cm, 02/26/25 16:52:00 EDT, Height, 92, kg, 03/30/24 14:45:00 EDT, Dry Weight Start Date: 02/28/25 Status: Ordered Quantity: 1.0 Unit: tablet Repeat number: 1 Fioricet Tablet 1 tablet, By Mouth, PRN Headache, 0 Refills, Maintenance, 07/03/20 7:00:00 PM EST, Tablet, Partial fill upon patient request Start Date: 07/03/20 Status: Ordered Repeat number: 1 folic acid 1 mg oral tablet Refills 0, Maintenance, 12/24/24 5:01:00 PM EDT, Partial fill upon patient request if the prescription is for a schedule II opioid drug. Start Date: 12/24/24 Status: Ordered Repeat number: 1 hydroxychloroquine 200 mg oral tablet 400 mg, 2, tablet, By Mouth, Daily, # 60 tablet, Refills 0, Maintenance, 11/05/24 12:46:00 PM EDT, Partial fill upon patient request if the prescription is for a schedule II opioid drug. Start Date: 11/05/24 Status: Ordered Quantity: 60.0 Unit: tablet Repeat number: 1 ibuprofen 800 mg oral tablet 800 mg, By Mouth, Every 8 hours, PRN, (4-6), may give 400mg per patient preference and re-dose [id number] within 8 hours if needed. Patient should only receive a total of 800mg of Ibuprofen every 8 hours., Refills 0, Maintenance, Pain , Moderate, 12/31/23 8:31:00 AM EDT, Partial fill upon patient request if the prescription is for a schedule II opioid drug. Start Date: 12/31/23 Status: Ordered Repeat number: 1 Iron Chews = 15 mg, By Mouth, Daily, 0 Refills, Maintenance, 11/24/23 8:26:00 AM EDT, Partial fill upon patientrequest if the prescription is for a schedule II opioid drug. Start Date: 11/24/23 Status: Ordered Repeat number: 1 methotrexate 2.5 mg oral tablet 0 Refills, Maintenance, 12/24/24 5:01:00 PM EDT, Partial fill upon patient request if the prescription is for a schedule II opioid drug. Start Date: 12/24/24 Status: Ordered Repeat number: 1 Multivitamin Tablet 1 tablet, By Mouth, Daily, 0 Refills, Maintenance, 02/23/18 8:06:06 AM EDT, Tablet Start Date: 02/23/18 Status: Ordered Repeat number: 1 OXcarbazepine 600 mg oral tablet 1 tablet, By Mouth, 2 times a day, # 180 tablet, 1 Refills, [id number], 170, cm, 03/04/22 16:40:00 EDT, Height, 93.5, kg, 05/10/21 17:41:00 EDT, Dry Weight Start Date: 03/08/22 Status: Ordered Quantity: 180.0 Unit: tablet Repeat number: 1 traZODone 50 mg oral tablet 50 mg, 1, tablet, By Mouth, Daily at bedtime, PRN, Refills 0, Maintenance, Sleep, 07/12/20 3:53:00 PM EST, Partial fill upon patient request Start Date: 07/12/20 Status: Ordered Repeat number: 1 Trintellix By Mouth, Daily, 0 Refills, Maintenance, 12/11/21 9:47:00 AM EDT, Partial fill upon patient request if the prescription is for a schedule II opioid drug. Start Date: 12/11/21 Status: Ordered Repeat number: 1 Trintellix 10 mg oral tablet 1 tablet = 10 mg, By Mouth, Daily, # 30 tablet, 0 Refills, Maintenance, 11/24/23 8:25:00 AM EDT, Tablet, Partial fill upon patient request if the prescription is for a schedule II opioid drug. Start Date: 11/24/23 Status: Ordered Quantity: 30.0 Unit: tablet Repeat number: 1 Tums 500 mg Tablet 2 tablet = 1,000 mg, Chew, 3 times a day, PRN Indigestion, 0 Refills, Maintenance, 12/31/23 8:31:00 AM EDT, Chew Tablet, Partial fill upon patient request if the prescription is for a schedule II opioid drug. Start Date: 12/31/23 Status: Ordered Repeat number: 1 ZyrTEC Liquid Gels 10 mg oral capsule 1 capsule = 10 mg, By Mouth, Daily, PRN for allergy symptoms, # 40 capsule, 0 Refills, Maintenance,11/15/16 8:59:13 AM EDT, Capsule Start Date: 11/15/16 Status: Ordered Quantity: 40.0 Unit: capsule Repeat number: 1 Problem List Condition Confirmation Course Effective Dates Status H ealth Status Informant Elevated alkaline phosphatase level Confirmed Active Idiopathic intracranial hypertension Confirmed Active Chronic back pain Confirmed Active Connective tissue disease - undifferentiated Confirmed Active Psychogenic nonepileptic seizure Confirmed Active Dyslipidemia Confirmed Active Left foot drop Confirmed Active History of suicidal ideation Confirmed Active Migraine Confirmed Active Mild intermittent asthma Confirmed Active Anxiety and depression Confirmed Active Obese class I Confirmed Active CSF pleocytosis Confirmed Active Labor, prolonged Confirmed Active Rh negative, antepartum Confirmed Active Social History Social History Type Response Smoking Status Never (less than 100 in lifetime) entered on: 03/31/21 Sex Sex Representation Female (finding) Patient Care team information Care Team Personnel Name: Bre Collins RN Position: S OB RN Member Role: Primary Care Nurse Name: Anette Hopkins Position: S Associate Professional Member Role: PCP Address: [address] [place] [id number] Telecom: Care Team Related Persons Name: VIJAYA CANNON Name: ISH CANNON Name: CRISTIAN CANNON Name: SHRUTHI CANNON Insurance Providers Guarantor name: AIDA CANNON Health Plan Information #: 1 Payer: [employer] [facility] Payer Identifier: NA Member Number: [id number] Group Number: [id number] Subscriber Identifier: [id number] Relationship to Subscriber: spouse Coverage Type: NA Coverage Verification Date: Telecom: NA Address:
[2025-04-01 13:12] VITALS: BP 142/86; PULSE 96; O2SAT 98; BMI 33.8
--- NOTE | 2025-04-01 13:12 | MHC.OFFVIS ---
Vital Signs 04/01/25 13:12 Height 5 ft 7 in Weight 216 lb 2 oz BMI 33.8 BP 142/86 H Blood Pressure Location Rt brachial Position Sitting Pulse 96 Pulse Source Pulse Oximeter Pulse Oximetry (%) 98 Oxygen Delivery Method Room Air Intake Visit Reasons: 6 mnts f/u Intake Note: Patient presents to the office today for a 6 month follow up for hypoesthesia/connective tissue disorder. Allergies topiramate (From Topamax) Allergy (Severe, Verified 04/01/25 13:14) seizure changes Medication List - Last Reconciled 04/01/25 by SLOANE Maher alpha lipoic acid 600 mg PO DAILY fceubqcphe-nodcbwbdqxjmy-lwee 50-325-40 mg 1 cap PO Q4H PRN 30 days cetirizine (Zyrtec) 10 mg PO BEDTIME folic acid 1 mg PO DAILY hydroxychloroquine (Plaquenil) 200 mg PO BID 90 days [Left AFO As directed. 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 She notes, that she changed jobs recently, she was becoming sick to frequently when working in the [employer]. Patient reports she is noticing more left lower extremity pain, though the numbness is stable. She has been having constant joint pain. Rheumatology advised her to hold the methotrexate, wanting to see the effects of plaquenil. She was also offered of the lipoic acid, however she was not able to obtain this She continues to have left foot drop though not as botehrsome as she is not walking as much at work. She has not been able to wear her brace as it no longer fits since she gained weight during her most recent . She is not noticing right lower extremity numbness or tingling. She is overall walking less at work. She is also struggling to lose weight. She endorses sleep difficulties, increased snoring, excessive daytime sleepiness. [place] Sleepiness scale 14 She may have an occasional headache, may use Tylenol or Fioricet sparingly as needed. She has not had any interval seizure. last seizure was in Mar 2021. Has f/u epilepsy clinic appt in [place] coming up. [facility] Medical History Long-term use of Plaquenil Undifferentiated connective tissue disease Anemia IIH (idiopathic intracranial hypertension) Surgical History H/O lithotripsy History of lumbar discectomy Family History Father Ventricular fibrillation Paternal Grandmother Squamous cell cancer of skin of nose Social History Are you a primary medicare compliance auditor to a significant other at home: No Do you presently have visiting nurse or other home services: No Alcohol intake: never Patient Tobacco Use Status: Never used Tobacco Physical Exam Vital Signs: Last Vital Signs Pulse 96 04/01/25 13:12 BP 142/86 H 04/01/25 13:12 Pulse Ox 98 04/01/25 13:12 Oxygen Delivery Method Room Air 04/01/25 13:12 BMI result Body Mass Index 33.8 Const General: cooperative and no acute distress Orientation/consciousness: patient oriented x3 Resp Effort & Inspection: normal respiratory effort and able to speak in complete sentences Neuro Other: Gait better today- chronic left leg high step. General: patient oriented x3 Cranial nerves: Yes CN's II-XII intact bilaterally Cognition (Neuro): normal cognition Psych Appearance: grossly normal Mental Status: mental status grossly normal Speech and movement: Normal speech and movement present Affect: normal affect Attitude: cooperative Assessment & Plan Assessment & Plan (1) Left foot drop: Comment: s/p left L5-S1 large disc herniation in 2017. Code(s): M21.372 - Foot drop, left foot Category: Medical (2) History of lumbar discectomy: Comment: Left L5-S1 by Dr Lemon (2017) Code(s): Z98.890 - Other specified postprocedural states Category: Surgical (3) Gait difficulty: Code(s): R26.9 - Unspecified abnormalities of gait and mobility Category: Medical (4) Seizure: Comment: both epileptic and non-epileptic. Code(s): R56.9 - Unspecified convulsions Category: Medical (5) Snoring: Code(s): R06.83 - Snoring Category: Medical (6) Sleep difficulties: Code(s): G47.9 - Sleep disorder, unspecified Category: Medical (7) Excessive daytime sleepiness: Code(s): G47.19 - Other hypersomnia Category: Medical (8) Family history of autistic disorder: Comment: Pt's dtr dx'd at age 4. Code(s): Z81.8 - Family history of other mental and behavioral disorders Category: Medical Plan For unspecified connective tissue disorder: Follow-up with rheumatology as scheduled We will take the liberty every sending the order for alpha lipoic acid 600 mg daily-advised that if this is not covered by her insurance she can purchase this [id number], or she can try Nervive relief instead. For LLE foot drop, hypoesthesia: RLE MS improved. Hold on trying a new LLE AFO, as patient is hopeful to lose some weight. Continue PT exercises For weight gain, in setting of snoring, excessive daytime sleepiness, and sleep difficulties: Home sleep study to assess for sleep apnea Future consideration: Referral to weight management clinic, consider GLP 1 antagonist such as Zepbound therapy. For seizure disorder: Continue on Trileptal for seizure prevention. Follow-up with [place] epilepsy [facility] ? f/u in 6 months or sooner prn. Orders: Orders RT home sleep study Today G47.19 - Other hypersomnia, G47.9 - Sleep disorder, unspecified, R06.83 - Snoring Medications: Refilled alpha lipoic acid 600 mg PO DAILY 90 caps 1RF G57.92 - Unspecified mononeuropathy of left lower limb Coding Level of Care Code Est Pt Level 4 (23047) Diagnoses Left foot drop M21.372 History of lumbar discectomy Z98.890 Gait difficulty R26.9 Seizure R56.9 Snoring R06.83 Sleep difficulties G47.9 Excessive daytime sleepiness G47.19 Family history of autistic disorder Z81.8
--- OUTSIDE RECORDS SUMMARY | 2025-04-01 14:03 | XMS_ITS | Patient Health Record ---
Author Organization [facility] Address [address] [facility] [address] [place] [address] Care Team Providers Care Engineer Intern Name Role Phone JOSEFA LEE Primary Care Provider MICKI Tamayo Unavailable [phone] Allergies Allergen (clinical drug ingredient) Drug/Non Drug [...] THEN 2 TABS 3 TIMES A DAY Oral; Duration: 90 Not-Taking Prazosin HCl 2 MG TAKE 1 CAPSULE BY MOUTH EVERY DAY AT BEDTIME NEEDED Oral; Duration: 90 Not-Taking Folic Acid 800 MCG 1 tablet Orally Once a day; Duration: 30 day(s) 12/12/2020 Active Qfaszpoczi-OXZK-Kskwhkpy 50-325-40 MG TAKE 1 2 TABS AT ONSET OF HEADACHE, MAY REPEAT IN 4 HOURS (MAX 4 TABS PER DAY, 8 PER WEEK) Oral; Duration: 30 Active clonazePAM 0.5 MG (Schedule IV Drug) TAKE 1/2 TABLET BY MOUTH 2 TIMES A DAY MAY TAKE 2 TABLETS FOR MORE THEN 2 SEIZURES IN 24HRS Oral; Duration: 30 Active 28-0.8 MG 1 tablet Orally Once a day; Duration: 30 day(s) 12/12/2020 Active traZODone HCl 50 MG TAKE 1/2 1 TABLET BY MOUTH EVERY DAY AT BEDTIME NEEDED Oral; Duration: 90 Active OXcarbazepine 150 MG TAKE 1 TABLET BY MO UTH TWICE A DAY Oral; Duration: 90 Active Social History Tobacco Use: Social History Observation Description Date Details (start date - stop date) Never Smoker NA - NA Tobacco Use/Smoking Question Answer Notes Are you a nonsmoker Section Notes: 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 lives at home wtih who is an RN. close to her family, mother is also an RN. No substance hx, not a smoker. Currently 18 weeks (12/08/2020) with her first child. Problems Problem Type SNOMED Code ICD Code Onset Dates Problem Status W/U Status Risk Notes Problem Anxiety (32915876) Anxiety (F41.9) Active confirmed Problem Migraine (76875472) Migraine (G43.909) Active confirmed Problem Depression (012487341) Depression (F32.9) Active confirmed Problem Migraine without aura, not refractory (215784868) Migraine without aura and without status migrainosus, not intractable (G43.009) Active confirmed Problem Major depressive disorder with single episode, in full remission (F32.5) Active confirmed Plan Of Treatment No Information Insurance Providers Payer Name Payer Address Payer Phone Subscriber Number Group Number Insured Name Patient Relationship to Insured Coverage Start Date Coverage End Date [facility] [address] [place] [address] [id number] Kwame Pinto Self - patient is the insured Medical (General) History Medical History History ICD Code Migraine G43.909 Anxiety F41.9 Depression F32.9 Seizure R56.9 lumbar radiculopathy Surgical History Surgery Date(Month/Year) lamenectomy L5-S1 11/2016 Hospitalization History Reason Date(Month/Year) surgery related seizures
--- OUTSIDE RECORDS SUMMARY | 2025-04-01 14:03 | XMS_ITS | Clinical Summary ---
Author Organization [facility] Address [address] [place] [address] Care Team Providers Care Central Supply Worker Name Role Phone Alpesh Esposito MD Primary Care Provider Surgical History Surgery Date Site/Laterality Comments LUMBAR LAMINECTOMY 11/2015 PROCEDURE: HISTORICAL LUMB LAMINECTOMY; COMMENT: L5-S1 WISDOM TOOTH EXTRACTION PROCEDURE: HISTORICAL WISDOM TEETH EXTRACTION OTHER SURGICAL HISTORY PROCEDURE: [place] HEARING TEST 6 MOS PRIOR TO EAR [...] 5 Years) and At-Risk Patients (6 to 49 Years) (2 of 2 - PCV) 09/18/2019 09/18/2018 HIV Screening 07/17/2022 Hepatitis C Screening 07/17/2022 Social Influencers of Health Screening 07/17/2022 COVID-19 Vaccine (1 - 2023-2 5 season) 2024 Depression Screening 08/15/2024 Influenza Vaccine (#1) 2025 9, 04/24/2018 DTaP,Tdap,and Td Vaccines (2 - Td [...] Documents on File Type Date Recorded 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
--- OUTSIDE RECORDS SUMMARY | 2025-04-01 14:03 | XMS_ITS | Encounter Summary ---
Author Organization [facility] Address [address] [place] [address] Care Team Providers Care Counseling Psychologist Name Role Phone Roland Ornelas MD Primary Care Provider Alpesh Morejon MD Primary Care Provider Unavailable Encounter Details Date Type Department Care Team Description 01/31/2017 Lease Analyst Report Medical Records [address] [place], [place] [id number] [place] [address] Social History Tobacco Use Types Packs/Day Years Used Date Smoking Tobacco: Never Assessed Sex Assigned at Date Recorded Not on file documented as of this encounter Plan of Treatment Not on file documented as of this encounter Visit Diagnoses Not on filedocumented in this encounter Care Teams Counseling Psychologist Relationship Specialty Start Date End Date Roland Ornelas MD PCP - General Internal Medicine 02/09/17 03/29/18 Alpesh Esposito MD PCP - General Internal Medicine 03/30/18 documented as of this encounter
--- OUTSIDE RECORDS SUMMARY | 2025-04-01 14:03 | XMS_ITS | Encounter Summary ---
Author Organization [facility] Address [address] [place] [address] Care Team Providers Care Fire Prevention Specialist Name Role Phone Maria Antonia Mckeon Primary Care Provider Carlotta Saravia MD Primary Care Provider [phone] Encounter Details Date Type Department Care Team (Late st Contact Info) Description 10/06/2020 Scanned Document [facility] [place] [address] [facility] [address] [place] [phone] Abiola Coello MD [address] [facility] [address] [place] [address] Social History Tobacco Use Types Packs/Day Years [...] on filedocumented in this encounter Care Teams Fire Prevention Specialist Relationship Specialty Start Date End Date Maria Antonia Mckeon [address] [facility] [address] [place] [address] PCP - General 08/26/20 07/14/22 Carlotta Saravia MD 57 [facility] [address] [place] [address] PCP - General 07/15/22 documented as of this encounter
--- OUTSIDE RECORDS SUMMARY | 2025-04-01 14:03 | XMS_ITS | Clinical Summary ---
Author Organization [facility] Address [address] [facility] [address] [place] [phone] Phone Care Team Providers Care Seed Production Field Supervisor Name Role Phone Pcp, Unknown Primary Care Provider Unavailabl e Allergies No known active allergies Medications vits15/iron/foli c/dss ( AD ORAL) Active MAGNESIUM ORAL Activ e biotin, bulk, 100 % Powd Active cetirizine (ZYRTEC) 10 MG tablet Take 10 mg by mouth nightly. Active diphenhydramine HCl (UNISOM, DIPHENHYDRAMINE, ORAL) Active ALBUTEROL INHL Activ e Social History Tobacco Use Types Packs/Day Years Used Date Smoking Tobacco: Never Smokeless Tobacco: Never Alcohol Use Standard Drinks/Week Comments Yes 0 (1 standard drink = 0.6 oz pur e alcohol) social Education Answer Date Recorded Are you interested in more education? Not on mik e 12/10/2022 Are you concerned about learning? Not on file 12/10/2022 No 12/10/2022 No 12/10/2022 Digital Access Answer Date Recorded No 01/10/2023 No 01/10/2023 No 01/10/2023 Reliable internet access at home? Not on file 01/10/2023 Device with a working camera? Not on file Comments Unknown Sex and Gender Information Value Date Recorded Sex Assigned at Female 02/18/2018 12:43 PM EDT Legal Sex Female 9:02 PM EDT Gender Identity Female 02/18/2018 12:43 PM EDT Sexual Orientation Bisexual 02/18/2018 12 :43 PM EDT Last Filed Vital Signs Vital Sign Reading Time Taken Comments Blood Pressure 114/64 02/18/2018 6:06 PM EDT Pulse 60 02/18/2018 6:06 PM EDT Temperature 36.8 C (98.3 F) 02/18/2018 6:06 PM EDT Respiratory Rate 18 02/18/2018 6:06 PM EDT Oxygen Saturation 96% 02/18/2018 6:06 PM EDT Inhaled Oxygen Concentration - - Weight 72.6 kg (160 lb) 02/18/2018 12:38 PM EDT Height 167.6 cm (5' 6 ) 02/18/2018 12:38 PM EDT Body Mass Index 25.82 02/18/2018 12:38 PM EDT Plan of Treatment Not on file Medical Devices Not on file Insurance [facility] Member Subscriber Plan / Payer (Ef fective 2017-Present) Name:Kwame Pinto Relation to Subscriber:Spouse Name:BOBBY PINTO Date of :1989 (Home) Address: [address] [facility] [place] [address] Payer ID:Not on file Type:HMO Address: ONE [address] [address] * Guarantor: Kwame Pinto Account Type Relation to Patient Date of Phone Billing Address Personal/Family Self [address] [place] [address] [facility] Member Subscriber Plan / Payer (Ef fective 2017-Present) Name:Kwame Pinto Relation to Subscriber:Spouse Name:BOBBY PINTO Date of :1989 (Home) Address: [address] [place] [id number] Payer ID:Not on file Type:HMO Address: ONE [address] [address] * Guarantor: Kwame Pinto Account Type Relation to Patient Date of Phone Billing Address Personal/Family Self [address] [place] [id number] [facility] Care Teams Seed Production Field Supervisor Relationship Specialty Start Date End Date Pcp, Unknown PCP - General 03/16/19 Additional Source Comments The information contained in this document represents components of the legal health record. It is not the complete legal health record.[facility]
== END 2025-04-01 14:05 | disposition home or self-care (01) ==
LOC: HO.HSMS 13:09
PROVIDERS: PCP Internal Medicine; Visit Provider Nurse Practitioner Family
DX: M21.372 Foot drop, left foot (principal); Z98.890 Other specified postprocedural states; R26.9 Unspecified abnormalities of gait and mobility; R56.9 Unspecified convulsions; R06.83 Snoring; G47.9 Sleep disorder, unspecified; G47.19 Other hypersomnia; Z81.8 Family history of other mental and behavioral disorders
CPT/HCPCS: 99214

== ENCOUNTER 2025-04-04 15:01 | Outpatient (REF) | payer BC, SELFPAY ==
--- OUTSIDE RECORDS SUMMARY | 2025-04-04 15:05 | XMS_ITS | Clinical Summary ---
Author Organization 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
--- OUTSIDE RECORDS SUMMARY | 2025-04-04 15:05 | XMS_ITS ---
Author Name [facility] Organization Unknown Results Test Name/Text Value Interpretation Date Range Source 10OH-Carbazepine SerPl-mCnc 28.5 mcg/mL Normal 11/08/2024 8 - 35 [facility] eGFRcr SerPlBld CKD-EPI 2020 122.0 mL/min/1.73m2 Normal 11/08/2024 - [facility] Potassium SerPl-sCnc 3.5 mmol/L Normal 11/08/2024 3.5 - 5 .3 [facility] Glucose SerPl-mCnc 113.0 mg/dL Above high normal 11/08/2024 65 - 99 [facility] Sodium SerPl-sCnc 141.0 mmol/L Normal 11/08/2024 135 - 14 6 [facility] Calcium SerPl-mCnc 9.1 mg/dL Normal 11/08/2024 8.6 - 10.2 [facility] Creat SerPl-mCnc 0.59 mg/dL Normal 11/08/2024 0.5 - 0.97 [facility] CO2 SerPl-sCnc 27.0 mmol/L Normal 11/08/2024 20 - 32 [facility] BUN SerPl-mCnc 16.0 mg/dL Normal 11/08/2024 7 - [address] BUN/Creat SerPl SEE NOTE: Normal 11/08/2024 6 - [address] Chloride SerPl-sCnc 107.0 mmol/L Normal 11/08/2024 98 - 1 10 [facility] History of Medication Use Medication Directions Dispensed Refills Start Date End Date Stat us Plaquenil 200 MG tablet Take 1 tablet (200 mg total) by mouth 2 (two) times a day with meals. 09/15/2024 active OXcarbazepine (TRILEPTAL) 300 MG tablet Take 3 tablets (900 mg total) by mouth 2 (two) times a day. 03/18/2022 05/02/2023 active albuterol (PROVENTIL HFA; VENTOLIN HFA) 108 (90 Base) MCG/ACT inhaler Inhale 2 puffs 4 times daily (every 6 hours) as needed for wheezing. 110MCG Q4H PRN 07/15/2022 aborted clonazePAM (KlonoPIN) 0.5 MG tablet Take 0.5 mg by mouth 2 times daily (every 12 hours) as needed. PRN FOR MORE THAN 2 SEIZURES IN 24 HOURS active FOLIC ACID PO Take 1,600 mcg by mouth daily. active traZODone (DESYREL) 50 MG tablet Take 0.5 tablets (25 mg total) by mouth nightly as needed for insomnia. QHS active Allergies Allergen Reaction Severity Comment Documented Date Source Statu s PICKLED MEAT ITCHING 11/09/2022 [facility] active POLLEN EXTRACT ITCHING 07/15/2022 [facility] active NICKEL RASH/DERMATITI S 03/18/2022 [facility] active TOPIRAMATE OTHER (SEE COMMENTS) Patient experienced hypersomnia and martinez 09/23/2020 [facility] active Problems Problem Status Onset Date Problem Type Date of Resolution Source CTS (carpal tunnel syndrome) active 2018-05-10 [facility]Act [facility] Depression active 2018-04-24 [facility]Act [facility] Anxiety active 2023-03-10 ProblemAct [facility] Lumbar disc herniation active 2018-04-24 ProblemAct [facility] TMJ syndrome active 2018-05-10 ProblemAct [facility] Mosley matter heterotopia (HCC) active EncounterDiagnosisAct [facility] Allergic rhinitis active 2018-05-10 ProblemAct [facility] Pleocytosis of cerebrospinal fluid active 2023-03-10 ProblemAct [facility] Migraine active 2023-03-10 ProblemAct [facility] Left foot drop active 2019-04-30 ProblemAct [facility] Weakness of left upper extremity active 2018-07-24 ProblemAct [facility] Major depressive disorder with single episode, in full remission active 2023-03-10 ProblemAct [facility] Dissociative convulsions active 2023-03-10 ProblemAct [facility] Pseudotumor cerebri active 2023-03-10 ProblemAct [facility] 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 ProblemAct [facility] Moderate persistent asthma without complication active 2018-04-24 ProblemAct [facility] Suicide ideation active 2023-03-10 ProblemAct [facility] Blood type, Rh negative active 2023-03-10 ProblemAct [facility] Encounters Encounter Type Encounter Reason Primary Diagnosis Location Date Ambulatory Follow-up Follow-up [place] 11/05/2024 Ambulatory Localization-related (focal) (partial) symptomatic epilepsy and epileptic syndromes with simple partial seizures, not intractable, without status epilepticus Localization-related (focal) (partial) symptomatic epilepsy and epileptic syndromes with simple partial seizures, not intractable, without status epilepticus [place] 10/04/2023 Ambulatory Localization-rel ated (focal) (partial) symptomatic epilepsy and epileptic syndromes with simple partial seizures, not intractable, without status epilepticus [facility] 03/10/2023 Ambulatory Localization-rel ated (focal) (partial) symptomatic epilepsy and epileptic syndromes with simple partial seizures, not intractable, without status epilepticus [facility] 11/09/2022 Ambulatory Localization-rel ated (focal) (partial) symptomatic epilepsy and epileptic syndromes with simple partial seizures, not intractable, without status epilepticus [facility] 07/15/2022 Ambulatory Localization-rel ated (focal) (partial) symptomatic epilepsy and epileptic syndromes with simple partial seizures, not intractable, without status epilepticus [facility] 03/18/2022 Ambulatory Localization-rel ated (focal) (partial) symptomatic epilepsy and epileptic syndromes with simple partial seizures, not intractable, without status epilepticus [facility] 10/19/2021 Ambulatory Localization-rel ated (focal) (partial) symptomatic epilepsy and epileptic syndromes with simple partial seizures, not intractable, without status epilepticus [facility] 06/11/2021 Care Team Organization Name Specialty Phone Email Start Date End Da te [facility] 11/13/2024 5 [facility] 11/09/2022 5 [facility] Heidi Tanner [facility] 07/15/2022 12/06/2024 [employer] NA[facility] 06/11/2021 3 [facility] JÚNIOR TANNER Primary [facility] 06/11/2021 03/18/2022
--- OUTSIDE RECORDS SUMMARY | 2025-04-04 15:05 | XMS_ITS | Encounter Summary ---
Author Organization [facility] Address [address] [place] [address] Care Team Providers Care Financial Market Dealer Name Role Phone Maria Antonia Mckeon Primary Care Provider Carlotta Saravia MD Primary Care Provider [phone] Encounter Details Date Type Department Care Team (Late st Contact Info) Description 10/06/2020 Scanned Document [facility] [place] [address] [facility] [address] [place] [phone] Abiola Coello MD [address] [facility] [address] [place] [address] Social History Tobacco Use Types Packs/Day Years [...] on filedocumented in this encounter Care Teams Financial Market Dealer Relationship Specialty Start Date End Date Maria Antonia Mckeon 25 [facility] [address] [place] [address] PCP - General 08/26/20 07/14/22 Carlotta Saravia MD 57 [facility] [address] [place] [address] PCP - General 07/15/22 documented as of this encounter
--- OUTSIDE RECORDS SUMMARY | 2025-04-04 15:05 | XMS_ITS | Clinical Summary ---
Author Organization [facility] Address [address] [facility] [address] [place] [phone] Phone Care Team Providers Care Welding Tester Name Role Phone Pcp, Unknown Primary Care [...] file Medical Devices Not on file Insurance [facility] Member Subscriber Plan / Payer (Ef fective 2017-Present) Name:Kwame Pinto Relation to Subscriber:Spouse Name:BOBBY PINTO Date of :1989 (Home) Address: [address] [facility] [facility] [facility] [facility] [place] [address] Payer ID:Not on file Type:HMO Address: ONE [address] [address] * Guarantor: Kwame Pinto Account Type Relation to Patient Date of Phone Billing Address Personal/Family Self [address] [place] [address] [facility] Member Subscriber Plan / Payer (Ef fective 2017-Present) Name:Kwame Pinto Relation to Subscriber:Spouse Name:BOBBY PINTO Date of :1989 (Home) Address: [address] [place] [id number] Payer ID:Not on file Type:HMO Address: ONE [address] [address] * Guarantor: Kwame Pinto Account Type Relation to Patient Date of Phone Billing Address Personal/Family Self [address] [place] [id number] [facility] Care Teams Welding Tester Relationship Specialty Start Date End Date Pcp, Unknown PCP - General 03/16/19 Additional Source Comments The information contained in this document represents components of the legal health record. It is not the complete legal health record.[facility]
[2025-04-04 17:48] LABS: Alanine Aminotransferase 36 U/L (0-31); Albumin Level 4.5 g/dL (3.5-5.0); Alkaline Phosphatase 124 U/L (39-117); Anion Gap 13 (12-20); Aspartate Amino Transferase 33 U/L (5-31); Blood Urea Nitrogen 9 mg/dL (9-16); Calcium 9.1 mg/dL (8.4-10.2); Carbon Dioxide 25 mmol/L (22-29); Chloride 100 mmol/L (96-108); Estimated Glomerular Filt Rate > 60; Potassium 3.7 mmol/L (3.3-5.1); Sodium 134 mmol/L (135-145); Total Protein 7.6 g/dL (6.5-8.0)
[2025-04-04 18:35] LABS: Appearance Urine Clear; Glucose Urine UA Negative (Negative); PH 8.0 (5.0-9.0); Specific Gravity - Urine 1.020 (1.005-1.025)
[2025-04-04 18:47] LABS: Total Protein Urine Random < 7 mg/dL (<12)
== END 2025-04-04 15:02 | disposition home or self-care (01) ==
LOC: HO.LAB 15:01
PROVIDERS: Student in an Organized Health Care Education/Training Program; Visit Provider Nurse Practitioner Family
DX: M35.9 Systemic involvement of connective tissue, unspecified (principal)
CPT/HCPCS: 36415; 80053; 81001; 82570; 84156; 85025; 85652; 86140; 86160; 86225

== ENCOUNTER 2025-04-08 11:22 | Outpatient (REF) | payer BC, SELFPAY ==
--- OUTSIDE RECORDS SUMMARY | 2025-04-06 17:30 | XMS_ITS | Continuity of Care Document ---
Author Organization [facility] ter Address [address] [place] [id number] Care Team Providers Care Trade Sales Assistant Name Role Phone Anette Hopkins Primary Care Physician Encounter [facility] Date(s): 04/05/25 - 04/06/[address] [id number] Encounter Diagnosis Nausea(Final) - 04/05/25 Discharge Disposition: A-D/C Home Attending Physician: Cordelia Benítez MD Admitting Physician: Cordelia Benítez MD Referring Physician: Not on Staff, Referring MD Encounter Type: Disch IP Allergies, Adverse Reactions, Alerts Substance Criticality Severity Reaction Reaction Severity Status topiramate Active Nickel Active Seasonale Active Other Food Allergy itching a nd GI upset sausage and pepperoni Active Immunizations Given and Recorded Vaccine Date Status Refusal Reason SARS-CoV-2(COVID-19)mRNA-LNP vac([id number]) 06/11/24 Recorded SARS-CoV-2(COVID-19)mRNA-LNP vac([id number]) 07/22/23 Recorded influenza virus vaccine, inactivated 05/21/24 Lee rded influenza virus vaccine, inactivated 05/16/23 Lee rded influenza virus vaccine, inactivated 05/14/22 Lee rded influenza virus vaccine, inactivated 05/28/21 Lee rded influenza virus vaccine, inactivated 04/30/19 Lee rded influenza virus vaccine, inactivated 04/24/18 Lee rded influenza virus vaccine, inactivated 05/04/17 Lee rded [id number] 12y+ bivalent booster vax 05/17/22 Recorded SARS-CoV-2 (COVID-19) mRNA BNT-162b2 vac 06/19/21 Recorded SARS-CoV-2 (COVID-19) mRNA BNT-162b2 vac 08/23/20 Recorded SARS-CoV-2 (COVID-19) mRNA BNT-162b2 vac 08/02/20 Recorded pneumococcal 23-valent vaccine 09/18/18 Recorded tetanus/diphtheria/pertussis, acel(Tdap) 08/13/16 Recorded Medications acetaminophen 325 mg oral tablet 650 mg, By Mouth, Every 4 hours, PRN, (1-3), may give 325mg per patient preference and re-dose [id number] within 4 hours, if needed. Patient should [...] Soft Stop, 02/28/25 4:05:00 PM EDT, Tablet, [facility]/pharmacy #[id number], Partial fill upon patient request [...] give 400mg per patient preference and re-dose [id number] within 8 hours if needed. Patient should [...] a day, # 180 tablet, 1 Refills, [facility] STORE [id number], 170, cm, 03/04/22 16:40:00 EDT, Height, 93.5, kg, 05/10/21 17:41:00 EDT, Dry Weight Start Date: 03/08/22 Status: Ordered Quantity: 180.0 Unit: tablet Repeat number: 1 Toradol Inj 15 mg, Injection, IV Push Slowly, 04/06/25 5:00:00 AM EDT, Stop date 04/06/25 6:14:59 AM EDT Start Date: 04/06/25 Stop Date: 04/06/25 Status: Completed Repeat number: 1 traZODone 50 mg oral [...] Confirmed Active Rh negative, antepartum Confirmed Active Results Radiology Reports * Exam Date Time Procedure Performing Provider Status 04/05/25 9:28 PM US Pelvic Transvaginal Au th (Verified) Notes: (US Pelvic Transvaginal) Reason For Exam: Pain RESULT: US Pelvic Transvaginal US Pelvic Transabdominal, US Pelvic Doppler Comp, US Pelvic Transvaginal Reason: Pain; Clinical Question(s): Torsion; Order Comment: US Pelvic Non-Ob Comp Prep COMPARISON: CT of the chest, abdomen, and pelvis dated April 05, 2025. TECHNIQUE: Transabdominal and transvaginal pelvic ultrasound with grayscale, color Doppler, and spectral Doppler analysis. FINDINGS: UTERUS: Size: 8.0 x 3.9 x 5.2 cm, volume 84.7 cc. Endometrial thickness: 0.4 cm. Morphology: Normal configuration and echotexture. IUD appears to be well- positioned at the uterine fundus. RIGHT OVARY: Size: 4.9 x 2.7 x 2.5 cm, volume 17.1 cc. Morphology: Normal echotexture. No pathologic cysts or mass. Normal arterial and venous waveforms. LEFT OVARY: Size: 5.2 x 3.2 x 3.3 cm, volume 29.2 cc. Morphology: Normal echotexture. Suspected hemorrhagic corpus luteum in the left ovary with ill-defined margins measuring up to at least 1.9 cm. No pathologic cysts or mass. Normal arterial and venouswaveforms. ADNEXA: Moderate to large volume of complex free fluid in the visualized pelvis. Mildly prominent periuterine vessels. IMPRESSION: 1. Moderate volume hemoperitoneum in the imaged pelvis, potentially due to rupture of a hemorrhagicleft-sided corpus luteum. 2. Both ovaries are mildly prominent but without convincing evidence of acute torsion. WSN: [id number] Ordering Physician: Kathia Garcia Dictated By: Cristian Gomez MD Dictated Date/Time: 04/05/25 9:40 pm Reviewed By: Cristian Gomez MD Signed By: Cristian Gomez MD Signed Date/Time: 04/05/25 9:40 pm Transcribed By: ANITA Transcribed Date/Time: 04/05/25 9:34 pm * Exam Date Time Procedure Performing Provider Status 04/05/25 9:28 PM US Pelvic Doppler Comp Au th (Verified) Notes: (US Pelvic Doppler Comp) Reason For Exam: Pain RESULT: US Pelvic Doppler Comp US Pelvic Transabdominal, US Pelvic Doppler Comp, US Pelvic Transvaginal Reason: Pain; Clinical Question(s): Torsion; Order Comment: US Pelvic Non-Ob Comp Prep COMPARISON: CT of the chest, abdomen, and pelvis dated April 05, 2025. TECHNIQUE: Transabdominal and transvaginal pelvic ultrasound with grayscale, color Doppler, and spectral Doppler analysis. FINDINGS: UTERUS: Size: 8.0 x 3.9 x 5.2 cm, volume 84.7 cc. Endometrial thickness: 0.4 cm. Morphology: Normal configuration and echotexture. IUD appears to be well- positioned at the uterine fundus. RIGHT OVARY: Size: 4.9 x 2.7 x 2.5 cm, volume 17.1 cc. Morphology: Normal echotexture. No pathologic cysts or mass. Normal arterial and venous waveforms. LEFT OVARY: Size: 5.2 x 3.2 x 3.3 cm, volume 29.2 cc. Morphology: Normal echotexture. Suspected hemorrhagic corpus luteum in the left ovary with ill-defined margins measuring up to at least 1.9 cm. No pathologic cysts or mass. Normal arterial and venouswaveforms. ADNEXA: Moderate to large volume of complex free fluid in the visualized pelvis. Mildly prominent periuterine vessels. IMPRESSION: 1. Moderate volume hemoperitoneum in the imaged pelvis, potentially due to rupture of a hemorrhagicleft-sided corpus luteum. 2. Both ovaries are mildly prominent but without convincing evidence of acute torsion. WSN: [id number] Ordering Physician: Kathia Garcia Dictated By: Cristian Gomez MD Dictated Date/Time: 04/05/25 9:40 pm Reviewed By: Cristian Gomez MD Signed By: Cristian Gomez MD Signed Date/Time: 04/05/25 9:40 pm Transcribed By: ANITA Transcribed Date/Time: 04/05/25 9:34 pm * Exam Date Time Procedure Performing Provider Status 04/05/25 9:28 PM US Pelvic Transabdominal Auth (Verified) Notes: (US Pelvic Transabdominal) Reason For Exam: Pain RESULT: US Pelvic Transabdominal US Pelvic Transabdominal, US Pelvic Doppler Comp, US Pelvic Transvaginal Reason: Pain; Clinical Question(s): Torsion; Order Comment: US Pelvic Non-Ob Comp Prep COMPARISON: CT of the chest, abdomen, and pelvis dated April 05, 2025. TECHNIQUE: Transabdominal and transvaginal pelvic ultrasound with grayscale, color Doppler, and spectral Doppler analysis. FINDINGS: UTERUS: Size: 8.0 x 3.9 x 5.2 cm, volume 84.7 cc. Endometrial thickness: 0.4 cm. Morphology: Normal configuration and echotexture. IUD appears to be well- positioned at the uterine fundus. RIGHT OVARY: Size: 4.9 x 2.7 x 2.5 cm, volume 17.1 cc. Morphology: Normal echotexture. No pathologic cysts or mass. Normal arterial and venous waveforms. LEFT OVARY: Size: 5.2 x 3.2 x 3.3 cm, volume 29.2 cc. Morphology: Normal echotexture. Suspected hemorrhagic corpus luteum in the left ovary with ill-defined margins measuring up to at least 1.9 cm. No pathologic cysts or mass. Normal arterial and venouswaveforms. ADNEXA: Moderate to large volume of complex free fluid in the visualized pelvis. Mildly prominent periuterine vessels. IMPRESSION: 1. Moderate volume hemoperitoneum in the imaged pelvis, potentially due to rupture of a hemorrhagicleft-sided corpus luteum. 2. Both ovaries are mildly prominent but without convincing evidence of acute torsion. WSN: [id number] Ordering Physician: Kathia Garcia Dictated By: Cristian Gomez MD Dictated Date/Time: 04/05/25 9:40 pm Reviewed By: Cristian Gomez MD Signed By: Cristian Gomez MD Signed Date/Time: 04/05/25 9:40 pm Transcribed By: ANITA Transcribed Date/Time: 04/05/25 9:34 pm * Exam Date Time Procedure Performing Provider Status 04/05/25 2:[address] Abd/Pelvis W/ IV Contrast Only Auth (Verified) Notes: (CT Abd/Pelvis W/ IV Contrast Only) Reason For Exam: RUQ abdominal pain;Other: RESULT: CT Abd/Pelvis W/ IV Contrast Only CT Angio Chest, CT Abd/Pelvis W/ IV Contrast Only INDICATION: Hx of Present Illness: awoke with lower abd pain radiating to her back and shoulder- awoke this am with the pain- some nausea-; Reason: Other:; PE suspected, Intermediate prob, positive D-dimer,; Clinical Question(s): Pulmonary Embolism TECHNIQUE: Spiral CTA of the chest was performed after rapid IV contrast administration without cardiac gating triggered by an MARILIN on the main pulmonary artery. Spiral CT of the abdomen and pelvis was then performed in the portal venous phase. Images are formatted in multiple planes using 2-D multiplanar and 3-D maximum intensity projection. 100 cc of Isovue 300 was administered intravenously. This study was performed without oral contrast. Weight-based protocol using automatic tube modulation was used to optimize exposure parameters. CTDIvol Body: 14.08 mGy, DLP Body: 1900 mGy*cm. COMPARISONS: CT abdomen and pelvis 05/29/2022 ANGIOGRAPHIC FINDINGS: Pulmonary arteries: No pulmonary embolism to the proximal segmental level. Normal caliber pulmonaryarteries. Thoracic aorta: No acute aortic abnormality seen on this study performed without cardiac gating. NON-ANGIOGRAPHIC FINDINGS: Band Saw Operator Cake Cutting view findings, lines and tubes: None. Trachea and airways: Patent without evidence of tracheal or endobronchial lesion. Lungs and pleura: Respiratory motion artifact. No consolidation or cavitation.. No effusion or pneumothorax. Mediastinum and rose: No mass or hematoma. No mediastinal or hilar lymphadenopathy. No esophageal abnormality. Partially imaged thyroid is unremarkable. Heart: Heart is normal in size. Trace pericardial fluid. No significant pericardial effusion. No coronary arterial calcifications. Chest wall soft tissues: No acute abnormality. Diaphragm: Intact. Liver: Normal in attenuation and morphology. No suspicious lesion. Gallbladder: No CT evidence of gallbladder pathology. Bile ducts: No biliary ductal dilation. Spleen: Normal in size. Pancreas: No suspicious lesion or ductal dilatation. Adrenal glands: No nodule. Kidneys and ureters: Probable right parapelvic cyst. No hydroureteronephrosis or solid renal mass. Bladder: No wall thickening or surrounding stranding. Reproductive organs: IUD present. High attenuation fluid surrounding the adnexal structures. There is a ruptured appearing corpus luteal cyst on the left at series 501 image 123.. Stomach, small bowel, and large bowel: No bowel obstruction or evidence of acute bowel inflammation. Appendix: No evidence of acute appendicitis. Peritoneum and retroperitoneum: High attenuation free fluid in the pelvis, moderate in volume, withmild hematocrit effect, for example on series 501 image 123. Small volume of fluid is tracking in the right and left paracolic space and is seen extending on the right and left to the level of the liver and spleen. Hemoperitoneum is overall moderate in volume. Lymph nodes: No enlarged lymph nodes. Abdominal and pelvic blood vessels: No vascular calcifications or aneurysm. No evidence of venous thrombosis. Abdominal and pelvic wall soft tissues: Tiny fat-containing umbilical hernia. Bones: No acute abnormality. Moderate disc degenerative changes at L5-S1. IMPRESSION: No evidence of pulmonary embolism. Hemoperitoneum, moderate in volume and predominantly in the pelvis surrounding the adnexa- suggesting this is most likely from adnexal cyst/ corpus luteal cyst rupture. Critical finding of hemoperitoneum communicated to Dr. Story in the emergency Department at 15:23 on day of exam. WSN: [id number] Ordering Physician: Karl Story Dictated By: Carlotta Vazquez MD Dictated Date/Time: 04/05/25 3:26 pm Reviewed By: Carlotta Vazquez MD Signed By: Carlotta Vazquez MD Signed Date/Time: 04/05/25 3:26 pm Transcribed By: ANITA Transcribed Date/Time: 04/05/25 3:09 pm * Exam Date Time Procedure Performing Provider Status 04/05/25 2:[address] Angio Chest Auth (Veri fied) Notes: (CT Angio Chest) Reason For Exam: PE suspected, Intermediate prob, positive D-dimer,;Other: RESULT: CT Angio Chest CT Angio Chest, CT Abd/Pelvis W/ IV Contrast Only INDICATION: Hx of Present Illness: awoke with lower abd pain radiating to her back and shoulder- awoke this am with the pain- some nausea-; Reason: Other:; PE suspected, Intermediate prob, positive D-dimer,; Clinical Question(s): Pulmonary Embolism TECHNIQUE: Spiral CTA of the chest was performed after rapid IV contrast administration without cardiac gating triggered by an MARILIN on the main pulmonary artery. Spiral CT of the abdomen and pelvis was then performed in the portal venous phase. Images are formatted in multiple planes using 2-D multiplanar and 3-D maximum intensity projection. 100 cc of Isovue 300 was administered intravenously. This study was performed without oral contrast. Weight-based protocol using automatic tube modulation was used to optimize exposure parameters. CTDIvol Body: 14.08 mGy, DLP Body: 1900 mGy*cm. COMPARISONS: CT abdomen and pelvis 05/29/2022 ANGIOGRAPHIC FINDINGS: Pulmonary arteries: No pulmonary embolism to the proximal segmental level. Normal caliber pulmonaryarteries. Thoracic aorta: No acute aortic abnormality seen on this study performed without cardiac gating. NON-ANGIOGRAPHIC FINDINGS: Band Saw Operator Cake Cutting view findings, lines and tubes: None. Trachea and airways: Patent without evidence of tracheal or endobronchial lesion. Lungs and pleura: Respiratory motion artifact. No consolidation or cavitation.. No effusion or pneumothorax. Mediastinum and rose: No mass or hematoma. No mediastinal or hilar lymphadenopathy. No esophageal abnormality. Partially imaged thyroid is unremarkable. Heart: Heart is normal in size. Trace pericardial fluid. No significant pericardial effusion. No coronary arterial calcifications. Chest wall soft tissues: No acute abnormality. Diaphragm: Intact. Liver: Normal in attenuation and morphology. No suspicious lesion. Gallbladder: No CT evidence of gallbladder pathology. Bile ducts: No biliary ductal dilation. Spleen: Normal in size. Pancreas: No suspicious lesion or ductal dilatation. Adrenal glands: No nodule. Kidneys and ureters: Probable right parapelvic cyst. No hydroureteronephrosis or solid renal mass. Bladder: No wall thickening or surrounding stranding. Reproductive organs: IUD present. High attenuation fluid surrounding the adnexal structures. There is a ruptured appearing corpus luteal cyst on the left at series 501 image 123.. Stomach, small bowel, and large bowel: No bowel obstruction or evidence of acute bowel inflammation. Appendix: No evidence of acute appendicitis. Peritoneum and retroperitoneum: High attenuation free fluid in the pelvis, moderate in volume, withmild hematocrit effect, for example on series 501 image 123. Small volume of fluid is tracking in the right and left paracolic space and is seen extending on the right and left to the level of the liver and spleen. Hemoperitoneum is overall moderate in volume. Lymph nodes: No enlarged lymph nodes. Abdominal and pelvic blood vessels: No vascular calcifications or aneurysm. No evidence of venous thrombosis. Abdominal and pelvic wall soft tissues: Tiny fat-containing umbilical hernia. Bones: No acute abnormality. Moderate disc degenerative changes at L5-S1. IMPRESSION: No evidence of pulmonary embolism. Hemoperitoneum, moderate in volume and predominantly in the pelvis surrounding the adnexa- suggesting this is most likely from adnexal cyst/ corpus luteal cyst rupture. Critical finding of hemoperitoneum communicated to Dr. Story in the emergency Department at 15:23 on day of exam. WSN: [id number] Ordering Physician: Karl Story Dictated By: Carlotta Vazquez MD Dictated Date/Time: 04/05/25 3:26 pm Reviewed By: Carlotta Vazquez MD Signed By: Carlotta Vazquez MD Signed Date/Time: 04/05/25 3:26 pm Transcribed By: ANITA Transcribed Date/Time: 04/05/25 3:09 pm * Exam Date Time Procedure Performing Provider Status 04/05/25 2:49 PM US Abdomen Ltd Auth (Veri fied) Notes: (US Abdomen Ltd) Reason For Exam: Abdominal Pain;Other: RESULT: US Abdomen Ltd US Abdomen Ltd Hx of Present Illness: awoke with lower abd pain radiating to her back and shoulder- awoke this am with the pain- some nausea-; Reason: Abdominal Pain; Clinical Question(s): Cholecystitis COMPARISON: CT Abdomen and Pelvis performed same day. FINDINGS: Gallbladder: No gallstones. Normal wall thickness. No pericholecystic fluid. Negative Paz sign, although patient received analgesic premedication which may reduce the accuracy of this finding. Biliary Tree: No intrahepatic or extrahepatic bile duct dilation is identified. Common duct: 0.2 cm. IMPRESSION: No sonographic evidence of cholelithiasis or acute cholecystitis. WSN: [id number] Ordering Physician: Karl Story Dictated By: Fidencio Julio MD Dictated Date/Time: 04/05/25 3:03 pm Reviewed By: Fidencio Julio MD Signed By: Fidencio Julio MD Signed Date/Time: 04/05/25 3:03 pm Transcribed By: ANITA Transcribed Date/Time: 04/05/25 2:58 pm * Exam Date Time Procedure Performing Provider Status 04/05/25 1:19 PM Chest 2 Views Frontal and Lat Auth (Verified) Notes: (Chest 2 Views Frontal and Lat) Reason For Exam: Shortness of Breath, Fever;Other: RESULT: Chest 2 Views Frontal and Lat Chest 2 Views Frontal and Lat Hx of Present Illness: awoke with lower abd pain radiating to her back and shoulder- awoke this am with the pain- some nausea-; Reason: ; Shortness of Breath, Fever; Clinical Question(s): Pneumonia COMPARISON: None. FINDINGS: LINES AND TUBES: None. LUNGS AND PLEURA: Clear lungs. Normal pulmonary vascularity. No evidence of pleural effusion. No pneumothorax. HEART, MEDIASTINUM AND ROSE: Heart is normal in size. Normal mediastinal and hilar contour. BONES AND SOFT TISSUES: No acute abnormality. IMPRESSION: No acute abnormality. WSN: [id number] Ordering Physician: Karl Story Dictated By: Sagar Quiroz MD Dictated Date/Time: 04/05/25 1:23 pm Reviewed By: Sagar Quiroz MD Signed By: Sagar Quiroz MD Signed Date/Time: 04/05/25 1:23 pm Transcribed By: ANITA Transcribed Date/Time: 04/05/25 1:21 pm Social History Social History Type Response Smoking Status Never (less than 100 in lifetime) entered on: 03/31/21 Sex Sex Representation Female (finding) History and physical note * Lila Chambers DO: PERFORM Event Display: History and Physical Hospital Authored Date: [id number] Patient: ??KASSANDRAKWAME ? Age:??35 Years?Sex:??Female?:??1990?? Chief Complaint Abdominal pain History of Present Illness Patient is a 35yo who presents to the ED with sudden??stabbing abdominal pain that started this morning at 5am.? She has been having severe abdominal pain and associated nausea since this morning and it has gotten suddenly better with pain medication. Denies any vaginal bleeding or abnormal vaginal discharge. Her pain is 3/10 when she does not move, but 7/10 when she moves. She also had pain in her right shoulder this morning which has not resolved.? She just finished yest infection treatment about a month ago. She denies any vaginal bleeding at this time.? Obstetric history: - - SVDx2 ?? Gynecologic History: LMP??Around 4 weeks ago, irregular with the IUD in place?? Hx of ovarian cysts control: Kyleena IUD in place since 2023 ?? Past Medical History: - Unspecified Connective tissue disorder (hydroxychloroquine)?? - Asthma, mild intermittent?? - Seizure (seizure free 4 years - on oxcarbazepine)?? - Idiopathic intracranial hypertension - Obesity?? - Depression and anxiety (on Trintellix)? Past Surgical??History: - Discectomy - No prior abdominal surgery? Review of Systems All systems reviewed and negative except as noted above in HPI. Physical Exam Vitals & Measurements T:??98.2?F?? HR:??91??(Peripheral)?? RR:??18?? BP:??138/83?? SpO2:??98%?? HT:??170??cm?? WT:??95.5??kg?? BMI:??33.04?? Constitutional: Normal affect, no acute distress, well-developed.?? Respirations: Normal exam, not labored.??Breath sounds are: Clear to auscultation. Cardiovascular: Regular rate and rhythm, no murmurs.?? Abdomen/GI: Soft, generalized-tenderness, and mild right rebound tenderness Extremities: No clubbing, cyanosis or edema present.?? Skin: No rash or jaundice. Normal for ethnicity.?? Neurological/Psychiatric: Appearance appropriate, mood and affect stable. Gynecologic: Bimanual exam notable for uterine tenderness, + bilateral??adnexal??tenderness,??no adnexal masses, no CVA tenderness. No cul de sac??fullness. Normal size uterus.?? ' Assessment/Plan Assessment:??Patient??is??35yo ??who presents??to the??ED with??severe abdominal??pain since??this morning. Vitals notable for??mild tachycardia??and hypertension.? CT A/P showing??hemoperitoneum??with moderate amount of volume, possibly??adnexal cyst/corpus luteal cyst rupture.??Hgb on??admission??at 12.1.??Physical??exam notable for??generalized??abdominal??and adnexal??tenderness not??low concern??for acute abdomen.??Pt hemodynamically??stable.? We discussed with patient that the most likely etiology of her hemoperitoneum is ruptured ovarian cyst and low concern for torsion at this time. bHCG negative so no concern for ectopic rupture. We discussed that given her stability, we recommend either observation or surgical interventionfor evacuation of hemoperitoneum. We discussed that with observation as an option, we would do serial abdominal exams and repeat her CBC for Hgb trend and based on her clinical status we would re-evaluate management. If she elects to proceed with surgery, we reviewed the risks and benefits of the procedure. We reviewed that given her history of connective tissue disorder, this would increase her s urgical risk factors.? After counseling patient elects to proceed with observation at this time. Plan for serial abdominalexams, serial blood values to trend Hgb and based on symptoms we can re-evaluate management. Pt andpartner had no further questions or concerns at this time.? Abdominal pain (R10.9):? - CT scan showing hemoperitoneum with moderate amount of fluid, possible adnexal cyst rupture - Hgb 12.1 - Vitals stable - IVF, NPO - Pain: Tylenol, IV Toradol, IV Morphine PRN - Plan for repeat CBC q6hr (next at 1700) and serial abdominal exams - T&S ordered ?? Connective tissue disorder (M35.9):? - On??hydroxychloroquine - Reports history of easy bruising? Psychogenic nonepileptic seizure (F44.5):? - Reports last seizure was 4 years ago - Continue patient's daily Oxcarbazepine ?? Idiopathic intracranial hypertension (G93.2):? - Stable per patient ?? Asthma (J45.909):?- Stable, mild intermittent? Patient seen and plan discussed with Dr. Benítez, attending physician. OB History History?(2,0,1,2)? # 1 ?Baby 1 ?Outcome Date:??01/2009 ?Outcome or Result:??Therapeutic , medical ?Gest Age:??Unknown ? Outcome:?? Demise ? Sex:??-- ?? # 2 ?Baby 1 ?Outcome Date:??05/11/2021?Outcome or Result:??Vaginal ?Gest Age:??39 weeks 6 days ? Outcome:??Live ? Sex:??Female?Wt:?3083 g ?? # 3 ?Baby 1 ?Outcome Date:??12/30/2023?Outcome or Result:??Vaginal ?Gest Age:??39 weeks ? Outcome:??Live ? Sex:??-- Active Problem List Active Problem List Anxiety and depression: (Medical) Chronic back pain: (Medical) Connective tissue disease - undifferentiated: (Medical) CSF pleocytosis: (Medical) Dyslipidemia: (Medical) Elevated alkaline phosphatase level: (Medical) History of suicidal ideation: (Medical) Idiopathic intracranial hypertension: (Medical) Labor, prolonged: (Medical) Left foot drop: (Medical) Migraine: (Medical) Mild intermittent asthma: (Medical) Obese class I: (Medical) Psychogenic nonepileptic seizure: (Medical) Rh negative, antepartum: (Medical) Procedure/Surgical History Laminectomy and discectomy: 12/10/16 Myringotomy and insertion of tube: 2010 Extraction of wisdom tooth: 2007 Home Medications Acetaminophen: 650 mg, By Mouth, Every 4 hours, PRN (Pain , Mild), (1-3), may give 325mg per patient preference and re-dose with 325mg within 4 hours, if needed. ?? Patient should only receive a total of 650mg of Acetaminophen every 4 hours. Acetaminophen/Butalbital/Caffeine: 1 tablet, By Mouth, PRN (Headache) Aspirin: 81 mg = 1 tablet, By Mouth, 2 times a day Calcium Carbonate: 1,000 mg = 2 tablet, Chew, 3 times a day, PRN (Indigestion) Carbonyl Iron: 15 mg, By Mouth, Daily Cetirizine: 10 mg = 1 capsule, By Mouth, Daily, PRN (for allergy symptoms) Fluconazole: 150 mg = 1 tablet, By Mouth, Once Folic Acid Hydroxychloroquine: 400 mg = 2 tablet, By Mouth, Daily Ibuprofen: 800 mg, By Mouth, Every 8 hours, PRN (Pain , Moderate), (4-6), may give 400mg per patient preference and re-dose with 400mg within 8 hours if needed. ?? Patient should only receive a totalof 800mg of Ibuprofen every 8 hours. Methotrexate Multivitamin: 1 tablet, By Mouth, Daily Oxcarbazepine: 1 tablet, By Mouth, 2 times a day Trazodone: 50 mg = 1 tablet, By Mouth, Daily at bedtime, PRN (Sleep) vortioxetine: 10 mg = 1 tablet, By Mouth, Daily vortioxetine: By Mouth, Daily Allergies Nickel Other Food Allergy??(itching and GI upset, sausage and pepperoni) Seasonale topiramate Social History Alcohol Use: Past. Frequency: 1-2 times per month. Other: No alcohol since 202 when seizures started. Electronic Cigarette/Vaping Electronic Cigarette Use: Never. Employment/School Status: Employed. 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 Exercise Self assessment: Fair condition. Regular exercise: No. Home/Environment Living situation: Home/Independent. Lives with: Spouse. Domestic violence in household: No. Alcoholin household: Yes. Firearms in household: Yes. Substance abuse in household: No. Smoker in household: Yes. Major illness in household: No. Financial concerns: No. Nutrition/Health Diet: Regular. Caffeine intake amount: 100 mg a day during . Feels highly stressed: No. Sexual Sexually involved in last 6 months: Yes. Gender identity: Identifies as female. Self described orientation: Bisexual. Preferred pronoun: She/her. Substance Abuse Use: Never. Tobacco Use: Never (less than 100 in lifetime). Family History Mother: Endometriosis Father: Atrial fibrillation Brother: Psychiatric disorder Brother: Psychiatric disorder Other: defect; Mental retardation Other: Diabetes mellitus type II Radiology Reason For Exam RUQ abdominal pain;Other: ?? RESULT: CT Abd/Pelvis W/ IV Contrast Only CT Angio Chest, CT Abd/Pelvis W/ IV Contrast Only? INDICATION: Hx of Present Illness: awoke with lower abd pain radiating to her back and shoulder- awoke this am with the pain- some nausea-; Reason: Other:; PE suspected, Intermediate prob, positive D-dimer,; Clinical Question(s): Pulmonary Embolism ?? TECHNIQUE: Spiral CTA of the chest was performed after rapid IV contrast administration without cardiac gating triggered by an MARILIN on the main pulmonary artery. Spiral CT of the abdomen and pelvis was then performed in the portal venous phase. Images are formatted in multiple planes using 2-D multiplanar and 3-D maximum intensity projection. 100 cc of Isovue 300 was administered intravenously. This study was performed without oral contrast. Weight-based protocol using automatic tube modulation was used to optimize exposure parameters. CTDIvol Body: 14.08 mGy, ??DLP Body: 1900 mGy*cm. ? COMPARISONS: CT abdomen and pelvis 05/29/2022 ?? ANGIOGRAPHIC FINDINGS: ?? Pulmonary arteries: No pulmonary embolism to the proximal segmental level. Normal caliber pulmonaryarteries. ?? Thoracic aorta: No acute aortic abnormality seen on this study performed without cardiac gating. ?? NON-ANGIOGRAPHIC FINDINGS: ?? Band Saw Operator Cake Cutting view findings, lines and tubes: None. ?? Trachea and airways: Patent without evidence of tracheal or endobronchial lesion. ?? Lungs and pleura: Respiratory motion artifact. No consolidation or cavitation.. No effusion or pneumothorax. ?? Mediastinum and rose: No mass or hematoma. No mediastinal or hilar lymphadenopathy. No esophageal abnormality. Partially imaged thyroid is unremarkable. ?? Heart: Heart is normal in size. Trace pericardial fluid. No significant pericardial effusion. No coronary arterial calcifications. ?? Chest wall soft tissues: No acute abnormality. ?? Diaphragm: Intact. ?? Liver: Normal in attenuation and morphology. No suspicious lesion. ?? Gallbladder: No CT evidence of gallbladder pathology. ?? Bile ducts: No biliary ductal dilation. ?? Spleen: Normal in size. ?? Pancreas: No suspicious lesion or ductal dilatation. ?? Adrenal glands: No nodule. ?? Kidneys and ureters: Probable right parapelvic cyst. No hydroureteronephrosis or solid renal mass. ?? Bladder: No wall thickening or surrounding stranding. ?? Reproductive organs: IUD present. High attenuation fluid surrounding the adnexal structures. There is a ruptured appearing corpus luteal cyst on the left at series 501 image 123.. ?? Stomach, small bowel, and large bowel: No bowel obstruction or evidence of acute bowel inflammation. ?? Appendix: No evidence of acute appendicitis. ?? Peritoneum and retroperitoneum: High attenuation free fluid in the pelvis, moderate in volume, withmild hematocrit effect, for example on series 501 image 123. Small volume of fluid is tracking in the right and left paracolic space and is seen extending on the right and left to the level of the liver and spleen. Hemoperitoneum is overall moderate in volume. Lymph nodes: No enlarged lymph nodes. ?? Abdominal and pelvic blood vessels: No vascular calcifications or aneurysm. No evidence of venous thrombosis. ?? Abdominal and pelvic wall soft tissues: Tiny fat-containing umbilical hernia. ?? Bones: No acute abnormality. Moderate disc degenerative changes at L5-S1. ?? IMPRESSION:? No evidence of pulmonary embolism.?? Hemoperitoneum, moderate in volume and predominantly in the pelvis surrounding the adnexa- suggesting this is most likely from adnexal cyst/ corpus luteal cyst rupture. EKG study * Event Display: ECG 12-Lead Authored Date: Please click on pdf link to open report * Event Display: ECG 12-Lead Authored Date: Ventricular Rate: 112 BPM Atrial Rate: 112 BPM P-R Interval: 134 ms QRS Duration: 82 ms Q-T Interval: 348 ms QTC Calculation(Bazett): 475 ms P [place]: 57 degrees R [place]: 61 degrees T [place]: 47 degrees Sinus tachycardia Otherwise normal ECG When compared with ECG of 24-Nov-2023 08:45, No significant change was found Confirmed by TAHIR MAJANO [facility] ([id number]) on 04/05/2025 3:39:19 PM [place]: [facility] * Jimi RUANO, Samantha: PERFORM, SIGN, VERIFY Event Display: [facility] Authored Date: Patient: KWAME CANNON Age: 35 years Sex: Female : 1990 Associated Diagnoses: None Author: Jimi RUANO, Samantha Findings Problem Related to Alteration in Gastrointestinal : Alteration in Gastrointestinal Func/new 04/06/2025 18:50 EDT Alteration in GI status Related to Other: abdominal pain Goals & Outcomes, Gastrointestinal Nutritional intake is adequate for metabolic needs, Pt will achieve normal/improved fluid balance, Pt will have a bowel movement prior to discharge, Pt will maintain adequate GI function appropriate for pt, Pt will maintain normal elimination patterns, Pt willresume/maintain adequate hemodynamic status Interventions, Gastrointestinal Assess/monitor abdomen for distention, tenderness, Assess/monitor abdominal girth & bowel function, Assess/monitor bowel pattern, bowel sounds, flatus, Assess/monitor number of bowel movements, Assess/monitor color, quantity, quality, consistency of stoo, Assess/monitor pt for nausea, vomiting, Assess/monitor effects of re-hydration, Assess/monitor intake &output, Assess if pt tolerating diet, Teach/encourage deep breath & cough exercises, Teach/encourage use of incentive spirometer BH Goals/Interventions, Gastrointestinal Yes Gastrointestinal, Problem Start 04/06/2025 18:50 Reviewed plan with, Gastrointestinal Patient Patient Progression, Gastrointestinal Plan Initiation . Evaluation Alert and oriented times 3. Pt up and ambulated. Pt is steady on her feet . IV fluids infused as ordered. NPO maintained. Verbalized understanding and acceptance of plan of care. Serial labwork performed. at the bedside. Pt C/o nausea today. I may just be nauseous because I havent eaten anything. Pt own Trentellix brought from home by and reviewed by pharmacy. Provider to the bedside and discussed plan to discharge pt to home. Tolerated food brought to room by . Discharge instructions reviewed with pt verbalizing understanding and acceptance of plan. PRN angio removed. No new meds ordered. Pt aware to follow up with her own DESIGN TECHNOLOGY TEACHER provider. Transported off unit by via wheelchair. Denied questins at discharge.. * Sagrario Crews RN: PERFORM, SIGN, VERIFY Event Display: Progress Note Hospital Authored Date: [id number] Patient: KWAME CANNON Age: 35 years Sex: Female : 1990 Associated Diagnoses: None Author: Mars RUANO, Sagrario Findings Narrative/Incidental patient arrived to unit just prior to shift change. alert and oriented to person, place, situation and time. reports intermittent dizziness so ambulated from stretcher to bed with standby assistance.endorses some pain in abdomen but declined IV morphine. admission assessment completed, valuables and belongings are completed. Admission skin assessment completed with second RN Dirk Saenz as witness per protocol. skin intact. gave report to day RN, pending fulling assessment. Patient resting in bed with upper side rails up, wheels locked, call stewart within reach. Patient wearing non-skid socks. Patient reminded to ring for assistance and educated on safety measures.. * Kathia Garcia DO: PERFORM Event Display: Progress Note Hospital Authored Date: [id number] Patient: ??KWAME CANNON ? Age:??35 Years?Sex:??Female?:??1990?? Subjective In to check on Galilea this AM. She reports she was able to get some rest in the Emergency Department.She denies any changes??in the severity or nature of her abdominal pain. She reports some positionsare more uncomfortable to lay flat than others. She is still hoping to avoid the operating room, but is amenable to whichever plan the DESIGN TECHNOLOGY TEACHER team believes is best.?? Physical Exam Vitals & Measurements T:??98.1?F?? HR:??97??(Peripheral)?? RR:??21?? RR:??14?? BP:??129/62?? SpO2:??100%?? HT:??170??cm?? WT:??96??kg?? BMI:??33.22?? Constitutional: Normal affect, no acute distress, well-developed.?? Respirations: Normal exam, not labored.?? Abdomen/GI: Soft,??generalized-tenderness, and mild right rebound tenderness Extremities: No clubbing, cyanosis or edema present.?? Skin: No rash or jaundice. Normal for ethnicity.?? Neurological/Psychiatric: Appearance appropriate, mood and affect stable. Assessment/Plan Assessment:??35 year old admitted to the DESIGN TECHNOLOGY TEACHER service in the setting of??abdominal pain and CT evidence of hemoperitoneum with a question of a ruptured hemorrhagic cyst.??She was admitted for serial abdominal exams and trending Hgb. Pelvic ultrasound did not reveal any evidence of torsion but did demonstrate a moderate amount of clot burden in the posterior cul-de-sac.??Discussed this finding with the patient as well as her most recent Hgb of 9.5, which could indicate equilibration or a decrease due to intraabdominal bleeding; however??given clinical stability and unchanged abdominal exam, the former is more likely. Plan for one additional CBC this morning to help guide decision for conservative management vs surgical management. Patient would still like to avoid the OR.? Abdominal pain (R10.9):? - CT scan showing hemoperitoneum with moderate amount of fluid, possible adnexal cyst rupture - TVUS without evidence of ovarian torsion, moderate clot burden in posterior cul-de-sac - Hgb 12.1 --> 11.5 --> 9.5 - Vitals stable - IVF, NPO - Pain: Tylenol, IV Toradol, IV Morphine PRN - ( ) AM CBC ?? Psychogenic nonepileptic seizure (F44.5):? - Reports last seizure was 4 years ago - Continue patient's daily Oxcarbazepine ?? Connective tissue disorder (M35.9):? - On??hydroxychloroquine - Reports history of easy bruising? Plan discussed with Dr. Peres, supervising physician. Intake and Output Intake and Output Results?? This visit (24 hour periods starting at 07:00 EDT)? 04/06/25 *?? 04/05/25?? 04/04/25?? Total Summary?Intake mL?? --?? 125?? --?Output mL?? --?? --?? --?Fluid Balance ?? --?? 125?? --?? Intake (1)?Lactated Ringers Injection 1,000 mL mL?? --?? 125?? --?Total?? --?? 125?? --?? Output (0)? Counts (0)? * This column has not completed the indicated time period.?? Diagnostics (04/05/2025 21:28 EDT US Pelvic Transabdominal) IMPRESSION:? 1. ??Moderate volume hemoperitoneum in the imaged pelvis, potentially due to rupture of a hemorrhagic left-sided corpus luteum. 2. ??Both ovaries are mildly prominent but without convincing evidence of acute torsion. [1] [1]??US Pelvic Transabdominal; Jason MAJANO, Cristian Pabon 04/05/2025 21:28 EDT Note * Shelton Kenyon MD: PERFORM Event Display: Discharge/Transfer Note Hospital Authored Date: [id number] Patient: ??KASSANDRA ANTONIOPOOJA ? Age:??35 Years?Sex:??Female?:??1990?? Admit Date Admission Date: 04/05/2025 Discharge Date 04/06/2025 Discharge Diagnoses Abdominal pain, 04/05/2025 Asthma, 04/05/2025 Connective tissue disorder, 04/05/2025 General medical, 04/05/2025 Idiopathic intracranial hypertension, 04/05/2025 Psychogenic nonepileptic seizure, 04/05/2025 [facility] Course Kwame is??a 35 year old admitted to the DESIGN TECHNOLOGY TEACHER service in the setting of??abdominal pain and CT evidence of hemoperitoneum with a question of a ruptured hemorrhagic cyst.??She was admitted for serial abdominal exams and trending Hgb. Over the course of the night, her pain was controlled with Tylenol, Toradol, and??Morphine. Her abdominal exam remained unchanged from presentation and her hemoglobin trended as followed: 12.1, 11.5, 9.5, 10.5, 10.2. She remained off of IV morphine and pain was controlled with Tylenol and Toradol.?? Objective/Physical Exam on Day of Discharge Vitals & Measurements T:??98.8?F?? HR:??94??(Peripheral)?? RR:??17?? BP:??125/65?? SpO2:??99%?? HT:??170??cm?? WT:??96??kg?? BMI:??33.22?? Constitutional:??Normal affect, no acute distress, well-developed. Respirations:??Normal exam, not labored.? Abdomen/GI:??Soft, minimally-tender, and non-distended, no guarding, no rebound tenderness.?? Extremities:??No clubbing, cyanosis or edema present.?? Skin:??No rash or jaundice. Normal for ethnicity. Neurological/Psychiatric:??Appearance appropriate, mood and affect stable. Assessment/Plan Assessment:??35 yo with a suspected right hemorrhagic cyst. Ultrasound showed hemoperitoneum, she demonstrated clinical stability with conservative management. Labs were appropriate without asignificant decline in her hemoglobin. Will discharge home with return precautions. Discussed return precautions and presentation to [facility] for additional evaluation if needed. ?? Abdominal pain (R10.9):? - CT scan showing hemoperitoneum with moderate amount of fluid, possible adnexal cyst rupture - TVUS without evidence of ovarian torsion, moderate clot burden in posterior cul-de-sac - Vital signs within normal limits - Continue conservative management at home ?? Psychogenic nonepileptic seizure (F44.5):? - Continuing oxcarbazepine ?? Connective tissue disorder (M35.9):? - On??hydroxychloroquine - Reports history of easy bruising? Discussed with Dr. Jesus, attending physician. Future Appointments 2024 2:40 PM EDT ?? With: Eduardo CARMONA, Anette Alanis Where: [place] [address] [address]- Status: Pending Discharge Medications ???Acetaminophen (acetaminophen 325 mg oral tablet)???Acetaminophen/Butalbital/Caffeine (Fioricet Tablet)???Aspirin (aspirin 81 mg oral tablet, chewable)???Calcium Carbonate (Tums 500 mg Tablet)???Car bonyl Iron (Iron Chews)???Cetirizine (ZyrTEC Liquid Gels 10 mg oral capsule)???Fluconazole (Diflucan 150 mg oral tablet)???Folic Acid (folic acid 1 mg oral tablet)???Hydroxychloroquine (hydroxychloroquine 200 mg oral tablet)???Ibuprofen (ibuprofen 800 mg oral tablet)???Methotrexate (methotrexate 2.5 mg oral tablet)???Multivitamin (Multivitamin Tablet)???Oxcarbazepine (OXcarbazepine 600 mg oral tablet)???Trazodone (traZODone 50 mg oral tablet)???vortioxetine (Trintellix 10 mg oral tablet)???vortioxetine (Trintellix) Immunizations during Hospitalization Vaccine Date Status SARS-CoV-2(COVID-19)mRNA-LNP vac([id number]) 06/11/2024 Recorded influenza virus vaccine, inactivated 05/21/2024 Recorded SARS-CoV-2(COVID-19)mRNA-LNP vac([id number]) 07/22/2023 Recorded influenza virus vaccine, inactivated 05/16/2023 Recorded [id number] 12y+ bivalent booster vax 05/17/2022 Recorded influenza virus vaccine, inactivated 05/14/2022 Recorded SARS-CoV-2 (COVID-19) mRNA BNT-162b2 vac 06/19/2021 Recorded influenza virus vaccine, inactivated 05/28/2021 Recorded SARS-CoV-2 (COVID-19) mRNA BNT-162b2 vac 08/23/2020 Recorded SARS-CoV-2 (COVID-19) mRNA BNT-162b2 vac 08/02/2020 Recorded influenza virus vaccine, inactivated 04/30/2019 Recorded pneumococcal 23-valent vaccine 09/18/2018 Recorded influenza virus vaccine, inactivated 04/24/2018 Recorded influenza virus vaccine, inactivated 05/04/2017 Recorded pneumococcal 23-valent vaccine - Not Given Comments : Patient Refuses tetanus/diphtheria/pertussis, acel(Tdap) 08/13/2016 Recorded * Edin (SUPERVISOR COOK HOUSE) Hua MAJANO: PERFORM Event Display: Discharge/Transfer Note Hospital Authored Date: [id number] Attending Attestation: I have seen and evaluated this patient on daily hospital rounds. I have discussed the case and its management with the resident and agree with the findings and plan as documented in the resident???s note.?? Lucy reports progressively less pain over the course of the day, and feels comfortable with a plan to go home and follow up with Dr. Vines. * Jimi RUANO, Samantha: PERFORM Event Display: Patient Education/Instruction Authored Date: Inpatient Adult Discharge Instructions. [address] [address] Name: KWAME CANNON : 1990?? Visit: 04/05/2025 16:05?? Current Date: 04/06/2025 16:51 ?? Account: [id number]?? Inpatient Adult Discharge Instructions We would like to thank you for allowing us to assist you with your healthcare needs. The following includes patient education materials and information regarding your injury/illness. Our entire staffstrives to provide an excellent experience for our patients and their families. PLEASE ENSURE YOU FOLLOW-UP PER THE INSTRUCTIONS BELOW! ?? YOUR OPINION IS IMPORTANT TO US! Please complete the survey you may receive by mail or email. Your feedback will be used to make improvements to the healthcare experiences of our patients and their families. Surveys are administered by [employer] ?? If further treatment with your primary care physician or another doctor is recommended, it is important for you to keep the appointment. Call your primary care physician or return to the Emergency Department immediately if your condition worsens, fails to improve, or new symptoms develop. If you need to find a doctor, you can call [facility] [employer] for a referral at [phone] or toll free at [phone]) or log in to [email or web address].. ?? [facility], in keeping with [facility] guidance, no longer requires face masks for staff, patientsor visitors in most situations. Similiar to time spent indoors at other locations, there is the chance that you were exposed to repiratory viruses during your time with us (such as flu or COVID-19). If you develop symptoms concerning for a viral respiratory infection, please seek testing (and treatment if indicated) from your medical provider or home test kit. ?? You can view and manage your care through the patient portal or by using a health care olvin of your choosing. [employer] is a website that allows you to securely view your medical information including your hospital discharge summary, office visit summaries, medications and follow-up visits. You can also request appointments, renew medications, and request access to your medical information using a health care olvin of your choosing, or just ask a question. You are entitled to know the individuals who participated in your treatment. This information is available within your medical record and will be provided upon your request. You can enroll at [email or web address] or register d uring your next office visit. You have been discharged from [facility], Patient Care Unit: SW6??. If you have any questions regarding these instructions, including results of studies pending, afteryou leave, please call us and we will be happy to assist you 07/03. [facility] Your Care Team Attending Physician Cordelia Benítez MD?? Consulting Providers Cordelia Benítez MD?? Discharging Providers Shelton Kenyon MD Your Diagnosis Abdominal pain Asthma Connective tissue disorder General medical Idiopathic intracranial hypertension Psychogenic nonepileptic seizure Tests Performed Below is a partial list of the tests performed during your hospitalization. You may have had other tests and procedures not included in this list. Please discuss all test results with your provider. CBC CBC w/ Differential Comprehensive Metabolic Panel D Dimer High??Sensitivity??Troponin T Lipase Serum Quantitative Type and Screen UA with hold for urine culture CT Abd/Pelvis W/ IV Contrast Only CT Angio Chest Pelvic Transabdominal US Pelvic Transvaginal (US) US Abdomen Ltd US Pelvic Doppler Comp XR Chest 2 Views Frontal and Lat Beta HCG Serum (Females Only) ( Serum Quantitative)?? CBC?? CBC w/ Differential?? CT Abd/Pelvis W/ IV Contrast Only?? CT Angio Chest?? Comprehensive Metabolic Panel?? D Dimer?? High??Sensitivity??Troponin T?? Lipase?? Type and Screen?? US Abdomen Ltd?? US Pelvic Doppler Comp?? US Pelvic Transabdominal (Pelvic Transabdominal US)?? US Pelvic Transvaginal (Pelvic Transvaginal (US))?? Urinalysis w/hold for Urine Culture (UA with hold for urine culture)?? Chest 2 Views Frontal and Lat (XR Chest 2 Views Frontal and Lat)?? Primary Care Provider Anette Hopkins? Advance Directive Health Care Proxy on File Yes - Health Care Proxy Discharge Vitals Temperature: 98.8 DegF Height: 170 cm Pulse Rate:??94 bpm??High Weight: 96 kg Respiratory Rate: 17 br/min Body Mass Index:??33.22 kg/m2??Critical Systolic Blood Pressure: 125 mm Hg Body surface area: 2.13 Diastolic Blood Pressure: 65 mm Hg ?? Oxygen Saturation: 99 % ?? Studies Pending All studies ordered during this hospital stay have been completed unless listed below. Please discuss all pending results with your provider listed above in these instructions. ?? CBC?? What to do next Instructions From Your Doctor Please call [facility] at [phone] ([place] Office) or [phone] ([place] Office) for a follow up appointment.? Orders? 04/06/25 16:25:00 EDT?? Scheduled Follow-Up Appointments 2024 2:40 PM EDT ?? [facility]: [facility] [address] [address]- Status: Pending Discharge Medications KWAME CANNON :1990 Visit Date:04/05/2025 Medications: Please continue your medications until treatment is completed or stopped by your provider. Medications not listed below should be discontinued. Discuss any questions related to medications with your provider. What How Much When Instructions Next Dose Unchanged Acetaminophen (acetaminophen 325 mg oral tablet) 650 Milligram Oral Every 4 hours as needed for Pain , Mild (1-3), may give 325mg per patient preference and re-dose with 325mg within 4 hours, if needed. ?? Patient should only receive a total of 650mg of Acetaminophen every 4 hours. ?? as ordered as needed Unchanged Acetaminophen/ Butalbital/ Caffeine (Fioricet Tablet) 1 tab(s) Oral As needed for Headache as ordered as needed for headache Unchanged Aspirin (aspirin 81 mg oral tablet, chewable) 1 tab(s) Oral Twice a day evening dose Unchanged Calcium Carbonate (Tums 500 mg Tablet) 1,000 Milligram Chew 3 times a day as needed for Indigestion as ordered as needed for indigestion Unchanged Carbonyl Iron (Iron Chews) 15 Milligram Oral Daily as ordered 04/07 Unchanged Cetirizine (ZyrTEC Liquid Gels 10 mg oral capsule) 1 capsule Oral Daily as needed for for allergy symptoms as ordered Unchanged Fluconazole (Diflucan 150 mg oral tablet) 1 tab(s) Oral Once Unchanged Folic Acid (folic acid 1 mg oral tablet) as ordered 04/07 Unchanged Hydroxychloroquine (hydroxychloroquine 200 mg oral tablet) 2 tab(s) Oral Daily as ordered Unchanged Ibuprofen (ibuprofen 800 mg oral tablet) 800 Milligram Oral Every 8 hours as needed for Pain , Moderate (4-6), may give 400mg per patient preference and re-dose with 400mg within 8 hours if needed. ?? Patient should only receive a total of 800mg of Ibuprofen every 8 hours. ?? as ordered Unchanged Methotrexate (methotrexate 2.5 mg oral tablet) as ordered Unchanged Multivitamin (Multivitamin Tablet) 1 tab(s) Oral Daily 04/07 as ordered Unchanged Oxcarbazepine (OXcarbazepine 600 mg oral tablet) 1 tab(s) Oral Twice a day as ordered Unchanged Trazodone (traZODone 50 mg oral tablet) 1 tab(s) Oral Daily at Bedtime as needed for Sleep as ordered Unchanged vortioxetine (Trintellix 10 mg oral tablet) 1 tab(s) Oral Daily Unchanged vortioxetine (Trintellix) Oral Daily 04/07 as ordered Prescription Given During Visit No new medications prescribed at time of discharge.?? Laboratory Results Below is a partial list of the most recent Laboratory test results done prior to this discharge. You may have had other tests and procedures not included in this list. Please discuss all test resultswith your provider. Est Creatinine Clearance - 120.13 mL/min (04/05/2025) CBC (04/06/2025) ???WBC - 4.9 k/mm3???RBC - 3.56 m/mm3???Hgb - 10.2 Gm/dL???Hct - 29.9 %???MCV - 84.0 femtoliters???MCH - 28.7 pg???MCHC - 34.1 Gm/dL???Platelet Count - 142 k/mm3???RDW-SD - 38.5 femtoliters???MPV - 8.8 femtoliters???Nucleated RBC (Automated) - 0.0 #/100 WBC'S???Abs. NRBC - 0.0 k/mm3 CBC w/ Differential (04/05/2025) ???WBC - 10.1 k/mm3???RBC - 4.19 m/mm3???Hgb - 12.1 Gm/dL???Hct - 34.6 %???MCV - 82.6 femtoliters???MCH - 28.9 pg???MCHC - 35.0 Gm/dL???Platelet Count - 193 k/mm3???RDW-SD - 37.4 femtoliters???MPV - 9.2 femtoliters???Nucleated RBC (Automated) - 0.0 #/100 WBC'S???Abs. NRBC - 0.0 k/mm3???Abs. Neut - 7.7 k/mm3???Abs. Lymph - 1.4 k/mm3???Abs. [place] - 0.8 k/mm3???Abs. Eo - 0.1 k/mm3???Abs. Baso - 0.1 k/mm3???Neut % - 76.4 %???Lymph % - 13.7 %???[place] % - 8.1 %???Eos % - 0.8 %???Baso % - 0.5 %???Imm Gran - 0.5 %???Abs. Imm Gran - 0.1 k/mm3 Comprehensive Metabolic Panel (04/05/2025) ???Sodium - 132 mmol/L???Potassium - 3.4 mmol/L???Chloride - 99 mmol/L???Bicarbonate Level - 21 mmol/L???Anion Gap - 12 mmol/L???Glucose Level - 119 mg/dL???BUN - 14 mg/dL???Creatinine-Blood - 0.64 mg/dL???Estimated GFR Creatinine - 119 ML/MIN/1.73 M2???Calcium - 9.0 mg/dL???Protein, Total - 7.2 Gm/ dL???Albumin - 4.1 Gm/dL???AG Ratio - 1.3???Alkaline Phosphatase - 135 units/L???AST (SGOT) - 23 units/L???ALT (SGPT) - 24 units/L???Bilirubin, Total - 0.2 mg/dL D Dimer (04/05/2025) ???D-Dimer - 3.26 mg/L FEU High??Sensitivity??Troponin T (04/05/2025) High Sensitivity Troponin (HSTnT) - <6 ng/L Lipase (04/05/2025) ???Lipase, Serum/Plasma - 27 units/L Serum Quantitative (04/05/2025) Blood - <1 mIU/mL Type and Screen (04/05/2025) ???Blood Type - A Negative???Antibody Screen - Negative UA with hold for urine culture (04/05/2025) ???Appear/Color, Urine - YELLOW???Specific [place], Urine - 1.041???pH, Urine - 7.0???Albumin, Urine - NEGATIVE???Glucose, Urine - NEGATIVE???Ketones, Urine - NEGATIVE???Bilirubin, Urine - NEGATIVE???Hemoglobin, Urine - NEGATIVE???Nitrite, Urine - NEGATIVE???Leukocyte, Urine - NEGATIVE???Urobilinogen - NORMAL???WBC's, Urine - 2 /HPF???RBC's, Urine - 2 /HPF???Bacteria - SLIGHT???Squamous Epith - 7 /HPF???Mucus - SLIGHT???Hold Urine Culture - Testing available 48 hours from time of collection. You will be contacted within 72 hours with your results. Allergies (NKA means No Known Allergies) Nickel Other Food Allergy??(itching and GI upset, sausage and pepperoni) Seasonale topiramate Problems Active Problems??(15) Anxiety and depression?? Chronic back pain?? Connective tissue disease - undifferentiated?? CSF pleocytosis?? Dyslipidemia?? Elevated alkaline phosphatase level?? History of suicidal ideation?? Idiopathic intracranial hypertension?? Labor, prolonged?? Left foot drop?? Migraine?? Mild intermittent asthma?? Obese class I?? Psychogenic nonepileptic seizure?? Rh negative, antepartum?? Education Materials Below is the list of Educational Leaflet Providered with your Discharge Instructions. Valuables and Belongings I fully understand and agree that [facility] accepts no responsibility for all my personal property including clothing, toilet articles, radios, jewelry, dentures, hearing aids, rings, money, or any other property that is in my possession or is brought to me after admission. I understand certain valuables may be placed in a hospital safe for a short period of time. I understand that the hospital is not liable for loss or damage due to accident, fire, or other natural occurrence while said property is in the safe. I accept full responsibility for any personal property that I keep with me, and will not hold the hospital responsible in case of loss or disappearance. I acknowledge that i have been encouraged to send valuables and belongings home. ?? Review of Valuable and Belonging List: With patient Disposition of Belongings: Other: at bedside Date for Pt to Sign Valuables/Belongings: 04/06/25 07:14:00 ?? Other Discharge Information ? Case Management Discharge Plan?? Discharge Plan?? Discharge Rx Program: Discharge Prescription Program ?? Pulmonary Rehab Status?? Pulmonary Rehab Discharge Status?? Respiratory Rate: 17 br/min ? Common Emergency Awareness Tips IS IT A STROKE? Act FAST and Check for these signs: FACE Does the face look uneven? ARM Does one arm drift down? SPEECH Does their speech sound strange? TIME Call at any sign of stroke ?? Heart Attack Signs Chest discomfort: Most heart attacks involve discomfort in the center of the chest and lasts more than a few minutes, or goes away and comes back. It can feel like uncomfortable pressure, squeezing, fullness or pain. Discomfort in upper body: Symptoms can include pain or discomfort in one or both arms, back, neck, jaw or stomach. Shortness of breath: With or without discomfort. Other signs: Breaking out in a cold sweat, nausea, or lightheaded. Remember, MINUTES DO MATTER. If you experience any of these heart attack warning signs, call to get immediate medical attention! ?? Smoking can increase your chances of developing chronic health problems and can cause harmful effects to other family members in your house. If you smoke, you are strongly encouraged to quit. Please call [facility] [employer] Link at [phone] or 7-620-744-MFOXJH ([phone]) or log in to [email or web address] for referrals to smoking cessation programs. ?? 687 Suicide & Crisis Lifeline is available 07/03 if you or someone you know needs to find a reason to keep living. By calling 097 you'll be connected to a skilled, trained counselor at a crisis center in your area. INPATIENT DISCHARGE INSTRUCTIONS SIGNATURE PAGE KASSANDRAANTONIO WANPOOJA Location:[facility] Registration Date and Time:04/05/2025 16:05 EDT Primary Care Physician: Anette Hopkins, Attending Physician: Cordelia Benítez MD, I KWAME CANNON, have received the above patient education materials/instructions and have verbalized understanding. If ambulance or transport services are being used I further acknowledge beinggiven a choice of service. ?? If you need to contact me, please call me at this number: . Patient/Testing Specialist Name: Patient/Testing Specialist Signature: Relationship to Patient: Witness Name/Signature: Date: Patient Care team information Care Team Personnel Name: Bre Collins RN Position: [facility] OB RN Member Role: Primary Care Nurse Name: Anette Hopkins Position: [facility] Associate Professional Member Role: PCP Address: [address] [place] [id number] Telecom: Care Team Related Persons Name: VIJAYA CANNON Name: ISH CANNON Name: CRISTIAN CANNON Name: SHRUTHI CANNON Insurance Providers Guarantor name: KWAME CANNON Health Plan Information #: 1 Payer: BLUE CROSS PPO Payer Identifier: [employer]OLIVAR Member Number: [id number] Group Number: [id number] Subscriber Identifier: [id number] Relationship to Subscriber: spouse Coverage Type: NA Coverage Verification Date: NA Telecom: Address:
[2025-04-08 11:40] LABS: MANUAL DIFF FLAG NO
[2025-04-08 12:18] LABS: Hematocrit 31.1 % (37.0-47.0); Hemoglobin 10.7 g/dl (12.0-16.0); Imm Gran Abs Auto 0.02 X10*3/uL (0.00-0.03); Imm Gran Pct Auto 0.4 % (0.0-0.4); Lymphocytes Absolute Auto 1.3 X10*3/uL (1.2-4.9); Mean Corpuscular HGB Conc 34.4 g/dl (31.0-35.0); Mean Corpuscular Hemoglobin 29.2 pg (27.0-33.0); Mean Corpuscular Volume 85.0 fL (80.0-98.0); NRBC Abs Auto 0.000 X10*3/uL (0.0-0.012); NRBC Pct Auto 0.0 /100WBC (0.0-0.2); Platelet Count 172 X10*3/uL (160-400); Red Blood Count 3.66 X10*6/uL (4.20-5.50); White Blood Count 5.5 X10*3/uL (4.8-10.8)
--- OUTSIDE RECORDS SUMMARY | 2025-04-08 12:53 | XMS_ITS | Patient Health Record ---
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 lives at home wtih who is an RN. close to her family, mother is also an RN. No substance hx, not a smoker. Currently 18 weeks (12/08/2020) with her first child. Problems Problem Type SNOMED Code ICD Code Onset Dates Problem Status W/U Status Risk Notes Problem Anxiety (79154442) Anxiety (F41.9) Active confirmed Problem Migraine (61034256) Migraine (G43.909) Active confirmed Problem Depression (776423927) Depression (F32.9) Active confirmed Problem Migraine without aura, not refractory (464092479) Migraine without aura and without status migrainosus, not intractable (G43.009) Active confirmed Problem Single episode of major depression in full remission (72593090) Major depressive disorder with single episode, in full remission (F32.5) Active confirmed Plan Of Treatment No Information Insurance Providers Payer Name Payer Address Payer Phone Subscriber Number Group Number Insured Name Patient Relationship to Insured Coverage Start Date Coverage End Date [facility] [address] [place] [address] [id number] Kwame Pinto Self - patient is the insured Medical (General) History Medical History History ICD Code Migraine G43.909 Anxiety F41.9 Depression F32.9 Seizure R56.9 lumbar radiculopathy Surgical History Surgery Date(Month/Year) lamenectomy L5-S1 11/2016 Hospitalization History Reason Date(Month/Year) surgery related seizures
--- OUTSIDE RECORDS SUMMARY | 2025-04-08 12:53 | XMS_ITS | Clinical Summary ---
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
--- OUTSIDE RECORDS SUMMARY | 2025-04-08 12:53 | XMS_ITS | Encounter Summary ---
Author Organization [facility] Address [address] [place] [address] Care Team Providers Care Coating Machine Operator Name Role Phone Maria Antonia Mckeon Primary Care Provider Carlotta Saravia MD Primary Care Provider [phone] Encounter Details Date Type Department Care Team (Late st Contact Info) Description 10/06/2020 Scanned Document [facility] Neurosurgery [place] [address] [facility] [address] [place] [phone] Abiola Coello MD [address] [facility] [address] [place] [address] Social History Tobacco Use Types Packs/Day Years [...] on filedocumented in this encounter Care Teams Coating Machine Operator Relationship Specialty Start Date End Date Maria Antonia Mckoen [address] [facility] [address] [place] [address] PCP - General 08/26/20 07/14/22 Carlotta Saravia MD [address] [facility] [address] [place] [address] PCP - General 07/15/22 documented as of this encounter
--- OUTSIDE RECORDS SUMMARY | 2025-04-08 12:53 | XMS_ITS | Clinical Summary ---
Author Organization [facility] Address [address] [facility] [address] [place] [phone] Phone Care Team Providers Care Municipal Maintenance Worker Name Role Phone Pcp, Unknown Primary Care [...] file Medical Devices Not on file Insurance [facility] Member Subscriber Plan / Payer (Ef fective 2017-Present) Name:Kwame Pinto Relation to Subscriber:Spouse Name:BOBBY PINTO Date of :1989 (Home) Address: [address] [facility] [place] [address] Payer ID:Not on file Type:HMO Address: ONE [address] [address] * Guarantor: Kwame Pinto Account Type Relation to Patient Date of Phone Billing Address Personal/Family Self [address] [place] [address] [facility] Member Subscriber Plan / Payer (Ef fective 2017-Present) Name:Kwame Pinto Relation to Subscriber:Spouse Name:BOBBY PINTO Date of :1989 (Home) Address: [address] [place] [address] Payer ID:Not on file Type:HMO Address: [address] [address] * Guarantor: Kwame Pinto Account Type Relation to Patient Date of Phone Billing Address Personal/Family Self [address] [place] [id number] [facility] Care Teams Municipal Maintenance Worker Relationship Specialty Start Date End Date Pcp, Unknown PCP - General 03/16/19 Additional Source Comments The information contained in this document represents components of the legal health record. It is not the complete legal health record.[facility]
--- OUTSIDE RECORDS SUMMARY | 2025-04-08 12:53 | XMS_ITS | Encounter Summary ---
Author Organization [facility] Address [address] [place] [address] Care Team Providers Care Biscuit Maker Name Role Phone Roland Ornelas MD Primary Care Provider Alpesh Morejon MD Primary Care Provider Unavailable Encounter Details Date Type Department Care Team Description 01/31/2017 Backup Operator Report Medical Records [address] [place], [place] [id number] [place] [address] Social History Tobacco Use Types Packs/Day Years Used Date Smoking Tobacco: Never Assessed Sex Assigned at Date Recorded Not on file documented as of this encounter Plan of Treatment Not on file documented as of this encounter Visit Diagnoses Not on filedocumented in this encounter Care Teams Biscuit Maker Relationship Specialty Start Date End Date Roland Ornelas MD PCP - General Internal Medicine 02/09/17 03/29/18 Alpesh Esposito MD PCP - General Internal Medicine 03/30/18 documented as of this encounter
== END 2025-04-08 11:23 | disposition home or self-care (01) ==
LOC: HO.LAB 11:22
PROVIDERS: Visit Provider Student in an Organized Health Care Education/Training Program
DX: M35.9 Systemic involvement of connective tissue, unspecified (principal)
CPT/HCPCS: 36415; 85025; 85652

== ENCOUNTER 2025-04-10 15:25 | Outpatient (AMB) | payer BC, SELFPAY ==
[2025-04-10 15:50] VITALS: BP 126/74; PULSE 84; O2SAT 99; BMI 33.5
--- NOTE | 2025-04-10 15:50 | A.OFFVIS_ITS ---
Vital Signs 04/10/25 15:50 Height 5 ft 7 in Weight 213 lb 13.574 oz BMI 33.5 BP 126/74 Blood Pressure Location Lt brachial Position Sitting Pulse 84 Pulse Oximetry (%) 99 Oxygen Delivery Method Room Air Intake Visit Reasons: follow up Intake Note: Patient presents for follow up on UCTD. 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 Continues to complain of left foot pain associated with numbness and tingling Rheumatologic History: UCTD based on low positive CHELSEA 1:80 and low positive dsDNA 10+ inflammatory type arthritic symptoms. Negative CSF for anti ribosomal Ab Plaquenil 08/2024 partially effective Added methotrexate 11/2024 effective - 01/2025. Worsening fatigue and GI upset Initial History: 2015 when the Neurologist noted she developed a left foot drop and left lower extremity weakness. She was found to have a left L5-S1 large disc herniation which was surgically repaired in 2016. Unfortunately in the left lower extremity weakness persisted and EMG in 2017 revealed a left L4-S1 denervated muscle consistent with mild chronic left L4-L5 radiculopathy. In 2020, she had an uncomplicated vaginal delivery with epidural and immediately after she noted that her right lower extremity was ?? for 12 hours. She noticed that she was tripping over her right foot and having numbness and tingling from the knees to the toes. Was evaluated for MS with Brain and whole spine MRI with contrast, no evidence of MS Denies rashes, photosensitivity, alopecia, oral/nasal ulcers (does report canker sores ), sicca symptoms, lymphadenopathy, chest pain/shortness of breath, history of pericarditis or pleuritis, foamy urine, lower extremity edema, muscle weakness, Raynaud's Also denies history of CVA, psychosis, history of kidney problems, history of cytopenias, history of VTE including PE or DVTs Joint pain - hands (1st CMC joint, MCPs, PIPs) - pain is worse in the evening - Notes stiffness in the AM 30-60mins but no swelling - knees - pain all day - going up stairs hurts more than going down - ankles - thinks it may be because of the foot drop OB History: +1 (1 ) No history of pre eclampsia partial abruption with second delivery No known autoimmune family history Current Rheumatology Medication(s): Plaquenil 200 mg b.i.d. PFSH Medical History (Updated 04/11/25 @ 15:11 by Puja Zapata MD) PCOS (polycystic ovarian syndrome) Long-term use of Plaquenil Undifferentiated connective tissue disease Anemia IIH (idiopathic intracranial hypertension) Surgical History H/O lithotripsy History of lumbar discectomy Family History Father Ventricular fibrillation Paternal Grandmother Squamous cell cancer of skin of nose Social History Are you a primary foster care worker to a significant other at home: No Do you presently have visiting nurse or other home services: No Alcohol intake: never Patient Tobacco Use Status: Never used Tobacco Review of Systems Const Details: Review of Systems Constitutional: Denies fever, chills, weight loss ENT: Denies vision changes, eye pain or eye redness, dental caries, dry mouth GI: Denies nausea, vomiting, diarrhea, abdominal pain, change in BM Pulm: Denies SOB, MCNULTY, hemoptysis, wheezing Cards: Denies chest pain, palpitations Skin: Denies Raynaud's, rash, nail changes, photosensitivity, EXTRUSION MACHINE OPERATOR: Denies headaches, weakness, paresthesias, recurrent falls MSK: as per HPI All other systems reviewed and are unremarkable except noted above Physical Exam Exam Exam: Vital signs reviewed Physical Examination CONSTITUITIONAL Patient alert and cooperative. Well appearing and in no apparent painful distress MSK Hands * Right Hand: Able to make a fist. No swelling or tenderness to palpation of the MCPs, PIPs or DIPs. * Left Hand: Able to make a fist. No swelling or tenderness to palpation of the MCPs, PIPs or DIPs. Wrists * Right Wrist: Full ROM to flexion and extension. No swelling or TTP * Left Wrist: Full ROM to flexion and extension. No swelling or TTP Elbows * Right Elbow: Full ROM. No swelling or TTP. No TTP of the medial epicondyle. No TTP of the lateral epicondyle * Left Elbow: Full ROM. No swelling or TTP. No TTP of the medial epicondyle. No TTP of the lateral epicondyle Shoulders * Right shoulder: Full ROM. No swelling noted. No TTP of the AC joint. No TTP of the subacromial bursa. No TTP of the posterior shoulder * Left shoulder: Full ROM. No swelling noted. No TTP of the AC joint. No TTP of the subacromial bursa. No TTP of the posterior shoulder Knees * Right knee: Full ROM. No swelling noted. No TTP of the knee joint line. No TTP of pes anserine bursa * Left knee: Full ROM. No swelling noted. No TTP of the knee joint line. No TTP of pes anserine bursa. Ankles * Right ankle: Good ankle dorsiflexion and plantar flexion. No swelling. No TTP of the ankle joint * Left ankle: Good ankle dorsiflexion and plantar flexion. No swelling. No TTP of the ankle joint Feet * Right foot: Negative squeeze test * Left foot: Negative squeeze test Tender points? * No tenderness to palpation of the bilateral trapezius, supraspinatus, anterior costochondral junctions, bilateral suboccipital muscle insertions Vital Signs: Last Vital Signs Pulse 84 04/10/25 15:50 BP 126/74 04/10/25 15:50 Pulse Ox 99 04/10/25 15:50 Oxygen Delivery Method Room Air 04/10/25 15:50 BMI result Body Mass Index 33.5 Results Reviewed Results Reviewed: Laboratory Tests 12/11/24 04/04/25 04/08/25 13:16 15:30 11:40 WBC 5.5 RBC 3.66 L D Hgb 10.7 L D Hct 31.1 L D Plt Count 172 D ESR 18 Sodium 134 L Potassium 3.7 Chloride 100 Carbon Dioxide 25 BUN 9 Creatinine 0.67 AST 23 33 H ALT 28 36 H C-Reactive Protein 1.16 H 0.70 H Laboratory Tests 02/08/24 07/23/24 04/04/25 12:15 16:54 15:30 Rheumatoid Factor < 13.0 CHELSEA Screen POSITIVE A CHELSEA Titer 1:80 H Double Strand DNA Ab 10 H 10 H Complement C3 158 145 Complement C4 30 20 Assessment & Plan Assessment & Plan (1) Undifferentiated connective tissue disease: Comment: Plaquenil 08/2024 partially effective Added methotrexate 11/2024 effective - 01/2025. Worsening fatigue and GI upset Code(s): M35.9 - Systemic involvement of connective tissue, unspecified Category: Medical Plan: #Undifferentiated connective tissue disease Patient is a 35-year-old female with several neurologic issues comes in with a low positive CHELSEA 1:80 and a low positive dsDNA 10. Based on her inflammatory type arthritis she was given a diagnosis of undifferentiated connective tissue disease. Initially on Plaquenil which was having good response but subsequently was not helping and so she was transitioned to methotrexate. but had to stop due to side effects Discussed benlysta and patient is amenable Plan - Alpha lipoic acid 600mg daily - Plaquenil 200mg bid - Benlysta 200mg SC weekly - RTC 4 months - Labs before visit: CBC, CMP, ESR, CRP, C3, C4, dsDNA, UA, UPC (2) Long-term use of Plaquenil: Code(s): Z79.899 - Other wire weaving loom setter (current) drug therapy Category: Medical Plan: #Long-term Use of Hydroxychloroquine Discussed with patient the risks and benefits of hydroxychloroquine in managing the rheumatic condition Benefits include: - Reduced pain, reduce mortality, maintenance of remission and reduction of flares Risks include: - GI upset, skin hyperpigmentation, retinal toxicity (especially after more than 5 years of use), myopathy Advised yearly ophthalmology visits (3) Encounter for monitoring of belimumab therapy: Code(s): Z51.81 - Encounter for therapeutic drug level monitoring; Z79.620 - automobile club information clerk (current) use of immunosuppressive biologic Plan: #automobile club information clerk Belimumab Discussed with patient the risks and benefits of hydroxychloroquine in managing the rheumatic condition Benefits include: - Reduced pain, reduce mortality, maintenance of remission and reduction of flares Risks include: - insomnia, injection site reactions, psychiatric events such as worsening depression/anxiety or suicidal ideation, increased risk of infection Plan I spent 30 minutes reviewing the record and labs, taking a history, examining the patient, discussing the treatment plan, reviewing literature, and documenting in the medical record Medications: New belimumab (Benlysta) inject into upper thigh or abdomen; rotate sites 200 mg subcut QWEEK 4 mL 5RF M32.9 - Systemic lupus erythematosus, unspecified Coding Level of Care Code Est Pt Level 4 (02813) Complex EM visit Add On G2211 Diagnoses Undifferentiated connective tissue disease M35.9 Long-term use of Plaquenil Z79.899 Encounter for monitoring of belimumab therapy Z51.81; Z79.620
--- OUTSIDE RECORDS SUMMARY | 2025-04-10 16:38 | XMS_ITS | Encounter Summary ---
Author Organization [facility] Address [address] [place] [address] Care Team Providers Care Housekeeping Worker Name Role Phone Maria Antonia Mckeon Primary Care Provider Carlotta Saravia MD Primary Care Provider Reason for Visit * Reason Comments Medication Refill Encounter Details Date Type Department Care Team (Late st Contact Info) Description 03/07/2021 Refill [facility] 85 [facility] [address] [place] [id number] Geraldine Lowry MD 85 [facility] [address] [place] [address] [place] matter heterotopia (HCC) Social History Tobacco [...] brain documented in this encounter Care Teams Housekeeping Worker Relationship Specialty Start Date End Date Maria Antonia Mckeon 25 [facility] [address] [place] [address] PCP - General 08/26/20 07/14/22 Carlotta Saravia MD 57 [facility] [address] [place] [address] PCP - General 07/15/22 documented as of this encounter
--- OUTSIDE RECORDS SUMMARY | 2025-04-10 16:38 | XMS_ITS | Clinical Summary ---
Author Organization [facility] Address [address] [place] [address] Care Team Providers Care Partition Assembly Machine Operator Name Role Phone Carlotta Saravia MD Primary Care Provider [phone] Allergies Active Allergy Reactions Criticality Noted Date [...] 04/24/2018 03/10/2023 Overview (03/10/2023): Leanne Guillen at [facility] Lumbar disc herniation 04/24/2018 Moderate persistent [...] - 19+ 3-dose series) 2010 Pneumococcal Vaccine: Pediat huber (0-5 Years) and At-Risk Patients (6 to 49 Years) (1 of 2 - PCV) 2010 Pap Smear (Ages 21-65) 01/07/2012 HPV Vaccines (1 - 3-dose SCD M series) 2018 Influenza Vaccine 03/15/2025 08/03/2023, , 04/30/2019, Additional history exists Insurance [facility] Care Teams Partition Assembly Machine Operator Relationship Specialty Start Date End Date Carlotta Saravia MD [address] [place] [id number] PCP - General 07/15/22
--- OUTSIDE RECORDS SUMMARY | 2025-04-10 16:38 | XMS_ITS | Encounter Summary ---
Author Organization [facility] Address [address] [place] [address] Care Team Providers Care Core Drill Operator Name Role Phone Maria Antonia Mckeon Primary Care Provider Carlotta Saravia MD Primary Care Provider [phone] Encounter Details Date Type Department Care Team (Late st Contact Info) Description 10/06/2020 Scanned Document [facility] [place] [address] [facility] [address] [place] [phone] Abiola Coello MD [address] [facility] [place] [address] [place] [address] Social History Tobacco Use Types Packs/Day Years [...] on filedocumented in this encounter Care Teams Core Drill Operator Relationship Specialty Start Date End Date Maria Antonia Mckeon 25 [facility] [address] [place] [address] PCP - General 08/26/20 07/14/22 Carlotta Saravia MD 57 [facility] [address] [place] [address] PCP - General 07/15/22 documented as of this encounter
--- OUTSIDE RECORDS SUMMARY | 2025-04-10 16:39 | XMS_ITS | Encounter Summary ---
Author Organization [facility] Address [address] [place] [address] Care Team Providers Care Anode Worker Name Role Phone Alpesh Esposito MD Primary Care Provider Unavailable Reason for Visit * Reason Comments E-prescribe Rx Request Encounter Details Date Type Department Care Team Description 01/07/2020 Refill Adult Medicine [address] [address] Alpesh Esposito MD E-prescribe Rx Request Social History Tobacco Use Types Packs/Day Years Used Date Smoking Tobacco: Never Smokeless Tobacco: Never Alcohol Use Standard Drinks/Week Comments Yes 0 (1 standard drink = 0.6 oz pur e alcohol) occasionally Sex Assigned at Date Recorded Not on file documented as of this encounter Miscellaneous Notes * Telephone Encounter - Megan Higuera - 01/08/2020 2:25 PM EDT Patient would like script to be: E-PRESCRIBED/FAXED TO PHARMACY WHEN WAS THE PATIENT'S LAST APPOINTMENT IN ADULT MEDICINE? 11/28/19 WHEN WAS THE LAST TIME THE PATIENT SAW THEIR PCP? Same as above Does patient have an upcoming appointment? no (THE MEDICATION REQUESTED IS ON THE MED LIST ABOVE) All of the medications requested were on the CURRENT MEDS list Did you check the Pharmacy information above?: YES Patient wants: 90 -day supply Is this a mail order prescription request ? NO If the refill is from a FAXED refill request what is the RX # listed on the fax? N/A Patients current insurance carrier is: Payor: [employer] / Plan: PPO $0 [place] [id number] / Product Type: POS Biy-vek-Tlygmog documented in this encounter Plan of Treatment Not on file documented as of this encounter Visit Diagnoses Not on filedocumented in this encounter Care Teams Anode Worker Relationship Specialty Start Date End Date Alpesh Esposito MD PCP - General Internal Medicine 03/30/18 documented as of this encounter
--- OUTSIDE RECORDS SUMMARY | 2025-04-10 16:39 | XMS_ITS | Encounter Summary ---
Author Organization [facility] Address [address] [place] [address] Care Team Providers Care Personal Clothing Laundry Aide Name Role Phone Alpesh Esposito MD Primary Care Provider Unavailable Encounter Details Date Type Department Care Team Description 08/22/2020 Choir Accompanist Report Medical Records [address] [place] [address] Jacobo Ratliff Social History Tobacco Use Types Packs/Day Years [...] on filedocumented in this encounter Care Teams Personal Clothing Laundry Aide Relationship Specialty Start Date End Date Alpesh Esposito MD PCP - General Internal Medicine 03/30/18 documented as of this encounter
--- OUTSIDE RECORDS SUMMARY | 2025-04-10 16:39 | XMS_ITS | Clinical Summary ---
Author Organization [facility] Address [address] [place] [address] Care Team Providers Care Field Artillery Senior Sergeant Name Role Phone Alpesh Esposito MD Primary Care Provider Surgical History Surgery Date Site/Laterality Comments LUMBAR LAMINECTOMY 11/2015 PROCEDURE: HISTORICAL LUMB LAMINECTOMY; COMMENT: L5-S1 WISDOM TOOTH EXTRACTION PROCEDURE: HISTORICAL WISDOM TEETH EXTRACTION OTHER SURGICAL HISTORY PROCEDURE: [place] HEARING TEST 6 MOS PRIOR TO EAR [...] Documents on File Type Date Recorded Patient Mobile Home Installer Expl anation Health Care Decision (hx) 06/04/2022 HE ALTH CARE PROXY Care Teams Field Artillery Senior Sergeant Relationship Specialty Start Date End Date Alpesh Esposito MD PCP - General Internal Medicine 03/30/18
--- OUTSIDE RECORDS SUMMARY | 2025-04-10 16:39 | XMS_ITS | Clinical Summary ---
Author Organization [facility] Address [address] [facility] [address] [place] [address] Phone Care Team Providers Care Mail Deliverer Name Role Phone Pcp, Unknown Primary Care [...] on file Insurance [facility] Member Subscriber Plan / Payer (Ef fective 2017-Present) Name:Kwame Pinto Relation to Subscriber:Spouse Name:BOBBY PINTO Date of :1989 (Home) Address: [address] [place] [address] Payer ID:Not on file Type:HMO Address: ONE [address] [address] * Guarantor: Kwame Pinto Account Type Relation to Patient Date of Phone Billing Address Personal/Family Self [address] [place] [address] [facility] Member Subscriber Plan / Payer (Ef fective 2017-Present) Name:Kwame Pinto Relation to Subscriber:Spouse Name:BOBBY PINTO Date of :1989 (Home) Address: [address] [place] [id number] Payer ID:Not on file Type:HMO Address: ONE [address] [address] * Guarantor: Kwame Pinto Account Type Relation to Patient Date of Phone Billing Address Personal/Family Self [address] [place] [id number] [facility] Care Teams Mail Deliverer Relationship Specialty Start Date End Date Pcp, Unknown PCP - General 03/16/19 Additional Source Comments The information contained in this document represents components of the legal health record. It is not the complete legal health record.[facility]
--- OUTSIDE RECORDS SUMMARY | 2025-04-10 16:39 | XMS_ITS | Patient Health Record ---
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 lives at home wtih who is an RN. close to her family, mother is also an RN. No substance hx, not a smoker. Currently 18 weeks (12/08/2020) with her first child. Problems Problem Type SNOMED Code ICD Code Onset Dates Problem Status W/U Status Risk Notes Problem Anxiety (57463025) Anxiety (F41.9) Active confirmed Problem Migraine (G43.909) Active confirmed Problem Depression (060035601) Depression (F32.9) Active confirmed Problem Migraine without aura, not refractory (989045142) Migraine without aura and without status migrainosus, not intractable (G43.009) Active confirmed Problem Single episode of major depression in full remission (13319187) Major depressive disorder with single episode, in full remission (F32.5) Active confirmed Plan Of Treatment No Information Insurance Providers Payer Name Payer Address Payer Phone Subscriber Number Group Number Insured Name Patient Relationship to Insured Coverage Start Date Coverage End Date [facility] [address] [place] [address] [id number] Kwame Pinto Self - patient is the insured Medical (General) History Medical History History ICD Code Migraine G43.909 Anxiety F41.9 Depression F32.9 Seizure R56.9 lumbar radiculopathy Surgical History Surgery Date(Month/Year) lamenectomy L5-S1 11/2016 Hospitalization History Reason Date(Month/Year) surgery related seizures
--- OUTSIDE RECORDS SUMMARY | 2025-04-10 16:39 | XMS_ITS | Clinical Summary ---
Author Organization [facility] Address [address] [place] [address] Care Team Providers Care Lead Trainer Name Role Phone Alpesh Esposito MD Primary Care Provider Unavailable Allergies No known active allergies Medications Medication Sig Dispensed Refills Start Date End Date Status MV-Min-Fe Fum-FA-DHA ( 1 OR) Take by mouth. 0 Active Magnesium 500 MG Cap Take by mouth. 0 Active folic acid (FOLVITE) 800 MCG tablet Take 400 mcg by mouth daily. 0 Active prazosin (MINIPRESS) 2 MG capsuleIndications:A nxiety Take 1 Cap by mouth at bedtime. 30 capsule 2 04/24/2018 Active hydrOXYzine (VISTARIL) 50 MG capsule Take 1 Cap by mouth 2 times daily as needed for Anxiety. 0 09/18/2018 Active trazodone (DESYREL) 100 MG tablet TAKE 1 TABLET BY MOUTH EVERYDAY AT BEDTIME 30 Tab 3 12/07/2018 Active ALBUTEROL SULFATE (PROAIR HFA) 108 (90 Base) MCG/ACT Aero Soln INHALE 1 TO 2 PUFFS EVERY 4 TO 6 HOURS NEEDED. 0 08/27/2014 Active Cetirizine HCl (ZYRTEC ALLERGY) 10 MG Cap Take by mouth daily. 30 Cap 0 04/30/2019 Active TURMERIC OR Take 1 Cap by mouth every morning. 0 Active Cholecalciferol (VITAMIN D) 1000 units Tab Take 1 Tab by mouth every morning. 0 Active GEWLMQWIYT-PRZW-FGFH EINE 50-325-40 MG OR TABS (FIORICET, ESGIC) per tablet TAKE 1 2 TABS AT ONSET OF HEADACHE, MAY REPEAT IN 4 HOURS (MAX 4 TABS PER DAY, 8 PER WEEK) 0 11/12/2019 Active oxcarbazepine (TRILEPTAL) 300 MG tablet TAKE 1 AND 1/2 TABLETS BY MOUTH TWICE A DAY 0 11/14/2019 Active TRINTELLIX 5 MG Tab TAKE 1 TABLET BY MOUTH EVERY DAY IN THE MORNING 0 01/22/2020 Active acetaZOLAMIDE (DIAMOX) 250 MG tablet Take 1 Tab by mouth 3 times daily. 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 Lumbar disc herniation 04/24/2018 Immunizations Name Administration Dates Next Due Influenza Vaccine-preservati ve Free-quadrivalent 4 Years 04/30/2019 Influenza Vaccine-quadrivalent 4 Years Plus 04/15 Pneumoccoccal(Adult) Polysaccharide PPSV23 09/18 Tdap 08/13/2016 Family History Medical History Relation Name Comments Hypertension Father Relation Name Status Comments Brother Other Father Alive Mother Alive Social History Tobacco Use Types Packs/Day Years Used Date Smoking Tobacco: Never Smokeless Tobacco: Never Alcohol Use Standard Drinks/Week Comments Yes 0 (1 standard drink = 0.6 oz pur e alcohol) occasionally Sex Assigned at Date Recorded Not on file Last Filed Vital Signs Vital Sign Reading Time Taken Comments Blood Pressure 110/66 01/31/2020 2:32 PM EDT Pulse 80 01/31/2020 2:32 PM EDT Temperature 37.7 C (99.9 F) 01/31/2020 2:32 PM EDT Respiratory Rate 17 01/31/2020 2:32 PM EDT Oxygen Saturation 98% 01/31/2020 2:32 PM EDT Inhaled Oxygen Concentration - - Weight 78 kg (171 lb 14.4 oz) 01/31/2020 2:32 PM EDT Height 170.2 cm (5' 7 ) 09/24/2019 4:15 PM EST Body Mass Index 26.92 09/24/2019 4:15 PM EST Plan of Treatment Health Maintenance Due Date Last Done Comments Covid-19 Vaccine (#1) 1990 CERVICAL CANCER SCREENING 01/07/2012 CHOLESTEROL SCREENING 04/26/2023 04/26/2018 BMI CHECK/ADVISE 08/15/2024 09/24/2019, 11/2018, 04/24/2018 BASELINE HEALTH EXAM 18-39 09/24/2024 09/24/2019, INFLUENZA (#1) 2025 04/30/2019, 04/15 (Completed), 04/24/2018, Additional history exists DTAP/TDAP/TD (2 - Td or Tdap) 08/13/2026 08/13/2016 PNEUMOCOCCAL VACCINE FOR HIG H RISK PATIENTS (#2) 01/07/2056 09/18/2018 Care Teams Lead Trainer Relationship Specialty Start Date End Date Alpesh Esposito MD PCP - General Internal Medicine 03/30/18
--- OUTSIDE RECORDS SUMMARY | 2025-04-10 16:39 | XMS_ITS | Encounter Summary ---
Author Organization [facility] Address [address] [place] [address] Care Team Providers Care Clin Nurse Spec Name Role Phone Alpesh Esposito MD Primary Care Provider Unavailable Encounter Details Date Type Department Care Team Description 04/26/2018 Release of Information Medical Records [address] [place] [id number] Abstract, Provider Social History Tobacco Use Types Packs/Day Years Used Date Smoking Tobacco: Never Smokeless Tobacco: Never Alcohol Use Standard Drinks/Week Comments No 0 (1 standard drink = 0.6 oz pur e alcohol) Sex Assigned at Date Recorded Not on file documented as of this encounter Plan of Treatment Not on file documented as of this encounter Visit Diagnoses Not on filedocumented in this encounter Care Teams Clin Nurse Spec Relationship Specialty Start Date End Date Alpesh Esposito MD PCP - General Internal Medicine 03/30/18 documented as of this encounter
--- OUTSIDE RECORDS SUMMARY | 2025-04-10 16:39 | XMS_ITS | Encounter Summary ---
Author Organization [facility] Address [address] [place] [address] Care Team Providers Care Assistant Auto Center Manager Name Role Phone Alpesh Esposito MD Primary Care Provider Unavailable Encounter Details Date Type Department Care Team Description 08/25/2020 Material Dispatcher Report Medical Records [address] [place] [address] Fran Jimenes MD Social History Tobacco Use Types Packs/Day Years [...] on filedocumented in this encounter Care Teams Assistant Auto Center Manager Relationship Specialty Start Date End Date Alpesh Esposito MD PCP - General Internal Medicine 03/30/18 documented as of this encounter
--- OUTSIDE RECORDS SUMMARY | 2025-04-10 16:39 | XMS_ITS | Encounter Summary ---
Author Organization [facility] Address [address] [place] [address] Care Team Providers Care Breakdown Man Name Role Phone Alpesh Esposito MD Primary Care Provider Unavailable Encounter Details Date Type Department Care Team Description 07/12/2020 [facility] Medical Records [address] [place] [address] Social History Tobacco Use Types Packs/Day Years Used Date Smoking Tobacco: Never Smokeless Tobacco: Never Alcohol Use Standard Drinks/Week Comments Yes 0 (1 standard drink = 0.6 oz pur e alcohol) occasionally Sex Assigned at Date Recorded Not on file COVID-19 Exposure Response Date Recorded In the last month, have you been in contact with someone who was confirmed or suspected to have Coronavirus / COVID-19? No / Unsure 07/03/2020 8:02 AM EST documented as of this encounter Plan of Treatment Not on file documented as of this encounter Visit Diagnoses Not on filedocumented in this encounter Care Teams Breakdown Man Relationship Specialty Start Date End Date Alpesh Esposito MD PCP - General Internal Medicine 03/30/18 documented as of this encounter
== END 2025-04-10 16:21 | disposition home or self-care (01) ==
LOC: HO.RHES 15:26
PROVIDERS: Visit Provider Student in an Organized Health Care Education/Training Program
DX: M35.9 Systemic involvement of connective tissue, unspecified (principal); Z79.899 Other long term (current) drug therapy; Z51.81 Encounter for therapeutic drug level monitoring; Z79.620 Long term (current) use of immunosuppressive biologic
CPT/HCPCS: 99214

== ENCOUNTER → 2025-06-26 15:59 | Outpatient (REF) | payer BC, SELFPAY ==
--- OUTSIDE RECORDS SUMMARY | 2025-06-26 18:53 | XMS_ITS | Encounter Summary ---
Author Organization [facility] Address [address] [place] [address] Care Team Providers Care Profile Grinder Name Role Phone Alpesh Esposito MD Primary Care Provider Unavailable Encounter Details Date Type Department Care Team Description 07/12/2020 [facility] Medical Records [address] [place] [address] Social History Tobacco Use Types Packs/Day Years [...] on filedocumented in this encounter Care Teams Profile Grinder Relationship Specialty Start Date End Date Alpesh Esposito MD PCP - General Internal Medicine 03/30/18 documented as of this encounter
--- OUTSIDE RECORDS SUMMARY | 2025-06-26 18:53 | XMS_ITS | Encounter Summary ---
Author Organization [facility] Address [address] [place] [address] Care Team Providers Care Gas Flow Regulator Name Role Phone Alpesh Esposito MD Primary Care Provider Unavailable Encounter Details Date Type Department Care Team Description 08/22/2020 Fertilizer Applicator Report Medical Records [address] [place] [address] Jacobo Ratliff Social History Tobacco Use Types [...] on filedocumented in this encounter Care Teams Gas Flow Regulator Relationship Specialty Start Date End Date Alpesh Esposito MD PCP - General Internal Medicine 03/30/18 documented as of this encounter
--- OUTSIDE RECORDS SUMMARY | 2025-06-26 18:53 | XMS_ITS | Clinical Summary ---
Author Organization [facility] Address [address] [place] [address] Care Team Providers Care Manager Ship Name Role Phone Carlotta Saravia MD Primary Care Provider [phone] Allergies Active Allergy Reactions Criticality Noted Date [...] 03/10/2023 Overview (03/10/2023): Leanne Guillen at [facility] Lumbar disc herniation 04/24/2018 Moderate persistent [...] Pap Smear (Ages 21-65) 01/07/2012 Influenza Vaccine 03/15/2025 08/03/2023, , 04/30/2019, Additional history exists HPV Vaccines (No Doses Required) Completed Insurance [address] [place] [facility] Care Teams Manager Ship Relationship Specialty Start Date End Date Carlotta Saravia MD [address] [place] [id number] PCP - General 07/15/22
--- OUTSIDE RECORDS SUMMARY | 2025-06-26 18:53 | XMS_ITS | Encounter Summary ---
Author Organization [facility] Address [address] [place] [address] Care Team Providers Care Avionic Technician Name Role Phone Alpesh Esposito MD Primary Care Provider Unavailable Encounter Details Date Type Department Care Team Description 04/26/2018 Release of Information Medical Records [address] [place] [id number] Abstract, Provider Social History Tobacco Use Types [...] on filedocumented in this encounter Care Teams Avionic Technician Relationship Specialty Start Date End Date Alpesh Esposito MD PCP - General Internal Medicine 03/30/18 documented as of this encounter
--- OUTSIDE RECORDS SUMMARY | 2025-06-26 18:53 | XMS_ITS | Clinical Summary ---
Author Organization [facility] Address [address] [place] [address] Care Team Providers Care Engineering Drawings Checker Name Role Phone Alpesh Esposito MD Primary Care Provider Surgical History Surgery Date Site/Laterality Comments LUMBAR LAMINECTOMY 11/2015 PROCEDURE: HISTORICAL LUMB LAMINECTOMY; COMMENT: L5-S1 WISDOM TOOTH EXTRACTION PROCEDURE: HISTORICAL WISDOM TEETH EXTRACTION OTHER SURGICAL HISTORY PROCEDURE: WA HEARING TEST 6 MOS PRIOR TO EAR [...] Cervical Cancer Screening: P ap Smear 01/07/2012 HPV Vaccines (1 - 3-dose SCD M series) 2018 Pneumococcal Vaccine: Pediatrics (0 to 5 Years) and At-Risk Patients (6 to 49 Years) (2 of 2 - PCV) 09/18/2019 09/18/2018 HIV Screening 07/17/2022 Hepatitis C Screening 07/17/2022 Social Influencers of Health Screening 07/17/2022 Depression Screening 08/15/2024 COVID-19 Vaccine (1 - 2024-2 6 season) 2025 Influenza Vaccine (#1) 2025 9, 04/24/2018 DTaP,Tdap,and Td Vaccines (2 - Td or Tdap) 08/13/2026 08/13/2016 RSV Immunization Adult Patients (1 - 1-dose 75+ series) 2066 HIB Vaccines Aged Out No longer eligi [...] Documents on File Type Date Recorded Patient Continuous Pickling Line Pickler Expl anation Health Care Decision (hx) 06/04/2022 [facility]OX[facility] Care Teams Engineering Drawings Checker Relationship Specialty Start Date End Date Alpesh Esposito MD PCP - General Internal Medicine 03/30/18
--- OUTSIDE RECORDS SUMMARY | 2025-06-26 18:53 | XMS_ITS | Encounter Summary ---
Author Organization [facility] Address [address] [place] [address] Care Team Providers Care Magneto Specialist Name Role Phone Alpesh Esposito MD Primary Care Provider Unavailable Encounter Details Date Type Department Care Team Description 08/22/2023 Release of Information Medical Records [address] [place] [address] [facility] Social History Tobacco Use Types Packs/Day Years [...] on filedocumented in this encounter Care Teams Magneto Specialist Relationship Specialty Start Date End Date Alpesh Esposito MD PCP - General Internal Medicine 03/30/18 documented as of this encounter
--- OUTSIDE RECORDS SUMMARY | 2025-06-26 18:53 | XMS_ITS | Encounter Summary ---
Author Organization [facility] Address [address] [place] [address] Care Team Providers Care Teletray Operator Name Role Phone Maria Antonia Mckeon Primary Care Provider [phone] Carlotta Saravia MD Primary Care Provider [phone] Encounter Details Date Type Department Care Team (Late st Contact Info) Description 10/06/2020 Scanned Document [facility] Neurosurgery [place] [address] [facility] [address] [place] [phone] Abiola Coello MD [address] [facility] [address] [place] [address] Social History Tobacco Use Types Packs/Day Years [...] on filedocumented in this encounter Care Teams Teletray Operator Relationship Specialty Start Date End Date Maria Antonia Mckeon [address] [facility] [address] [place] [address] PCP - General 08/26/20 07/14/22 Carlotta Saravia MD [facility] [address] [place] [address] PCP - General 07/15/22 documented as of this encounter
--- OUTSIDE RECORDS SUMMARY | 2025-06-26 18:53 | XMS_ITS | Clinical Summary ---
Author Organization [facility] Address [address] [facility] [address] [place] [address] Phone Care Team Providers Care Management Professor Name Role Phone Pcp, Unknown Primary Care [...] file Medical Devices Not on file Insurance [facility] Member Subscriber Plan / Payer (Ef fective 2017-Present) Name:Kwame Pinto Relation to Subscriber:Spouse Name:BOBBY PINTO Date of :1989 (Home) Address: [address] [place] [address] Payer ID:Not on file Type:HMO Address: ONE [address] [address] * Guarantor: Kwame Pinto Account Type Relation to Patient Date of Phone Billing Address Personal/Family Self [address] [place] [address] [facility] Member Subscriber Plan / Payer (Ef fective 2017-Present) Name:Kwame Pinto Relation to Subscriber:Spouse Name:BOBBY PINTO Date of :1989 (Home) Address: [address] [place] [address] Payer ID:Not on file Type:HMO Address: ONE [address] [address] * Guarantor: Kwame Pinto Account Type Relation to Patient Date of Phone Billing Address Personal/Family Self [address] [place] [id number] [facility] Care Teams Management Professor Relationship Specialty Start Date End Date Pcp, Unknown PCP - General 03/16/19 Additional Source Comments The information contained in this document represents components of the legal health record. It is not the complete legal health record.[facility]
--- OUTSIDE RECORDS SUMMARY | 2025-06-26 18:53 | XMS_ITS | Patient Health Record ---
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 lives at home wtih who is an RN. close to her family, mother is also an RN. No substance hx, not a smoker. Currently 18 weeks (12/08/2020) with her first child. Problems Problem Type SNOMED Code ICD Code Onset Dates Problem Status W/U Status Risk Notes Problem Anxiety (16707773) Anxiety (F41.9) Active confirmed Problem Migraine (15511638) Migraine (G43.909) Active confirmed Problem Depression (581873725) Depression (F32.9) Active confirmed Problem Migraine without aura, not refractory (653778487) Migraine without aura and without status migrainosus, not intractable (G43.009) Active confirmed Problem Single episode of major depression in full remission (74101661) Major depressive disorder with single episode, in full remission (F32.5) Active confirmed Plan Of Treatment No Information Insurance Providers Payer Name Payer Address Payer Phone Subscriber Number Group Number Insured Name Patient Relationship to Insured Coverage Start Date Coverage End Date [facility] [address] [place] [address] [id number] Kwame Pinto Self - patient is the insured Medical (General) History Medical History History ICD Code Migraine G43.909 Anxiety F41.9 Depression F32.9 Seizure R56.9 lumbar radiculopathy Surgical History Surgery Date(Month/Year) lamenectomy L5-S1 11/2016 Hospitalization History Reason Date(Month/Year) surgery related seizures
--- OUTSIDE RECORDS SUMMARY | 2025-06-26 18:53 | XMS_ITS | Encounter Summary ---
Author Organization [facility] Address [address] [place] [address] Care Team Providers Care Demonstrator Sewing Techniques Name Role Phone Roland Ornelas MD Primary Care Provider Alpesh Morejon MD Primary Care Provider Unavailable Encounter Details Date Type Department Care Team Description 01/31/2017 Boatswains Mate Report Medical Records [address] [place], [place] [id number] [place] [address] Social History Tobacco Use Types Packs/Day Years Used Date Smoking Tobacco: Never Assessed Sex Assigned at Date Recorded Not on file documented as of this encounter Plan of Treatment Not on file documented as of this encounter Visit Diagnoses Not on filedocumented in this encounter Care Teams Demonstrator Sewing Techniques Relationship Specialty Start Date End Date Roland Ornelas MD PCP - General Internal Medicine 02/09/17 03/29/18 Alpesh Esposito MD PCP - General Internal Medicine 03/30/18 documented as of this encounter
--- OUTSIDE RECORDS SUMMARY | 2025-06-26 18:53 | XMS_ITS | Encounter Summary ---
Author Organization [facility] Address [address] [place] [address] Care Team Providers Care Breakfast Manager Name Role Phone Alpesh Esposito MD Primary Care Provider Unavailable Encounter Details Date Type Department Care Team Description 11/06/2020 Semiconductor Lab Technician Report Medical Records [address] [place] [address] Fran Jimenes MD Social History Tobacco Use [...] on filedocumented in this encounter Care Teams Breakfast Manager Relationship Specialty Start Date End Date Alpesh Esposito MD PCP - General Internal Medicine 03/30/18 documented as of this encounter
== END ==
LOC: HO.SL 15:59
PROVIDERS: Visit Provider Nurse Practitioner Family
DX: R06.83 Snoring (principal); G47.19 Other hypersomnia
CPT/HCPCS: 95806

== ENCOUNTER → 2025-06-26 16:09 | Outpatient (BNV) | payer BC, SELFPAY | PROVIDERS: Visit Provider Psychiatry & Neurology Neurology | DX: R06.83 Snoring (principal) | CPT/HCPCS: 95806 ==